=== PATIENT | female | born 1950 | race Caucasian/White ===

== ENCOUNTER 2017-02-13 02:23 | Inpatient (IN) | payer MEDICARE ==
[2017-02-13] VITALS: BP 147/41
[~2017-02-13] VITALS: Ht 165.1 cm; Wt 109.6 kg
--- NOTE | ~2017-02-13 | HEMODYNAMI ---
PATIENT:ERNIE VILLALBA MEDICAL RECORD: [id number] : 50 LOCATION:[place] [address] ADMISSION DATE: 02/13/17 Generatedon:02/13/201715:27 Patient name: ERNIE VILLALBA Patient #: [id number] SSN: : 1950 Date of study: 02/13/2017 Page: Of Hemodynamic Procedure Report Patient Data Patient Demographics Procedure consent was obtained First Name: ERNIE Gender: Female Last Name: ORLY : 1950 Patient #: [id number] Age: 66 year(s) Race: Unknown Additional ID: [id number] Contact details Address: [address] State: [place] City: [place] Zip code: [address] Past Medical History Allergies: No allergy information Admission Admission Data Admission Date: 02/13/2017 Admission Time: 6:27 Room #: [facility] Procedure Procedure Types Cath Procedure Diagnostic Procedure LHC LHC w/Coronaries w/Grafts PCI Procedure Coronary Stent Initial Miscellaneous Procedures Moderate Sedation up to 30 minutes Procedure Description Procedure Date Procedure Date: 02/13/2017 Procedure Start Time: 15:01 Procedure End Time: 15:26 Procedure Staff Name Function Moisés Galvan MD Performing Physician Long Kerr RT Scrub Vel Boogie RN Nurse Latha Mcclellan RN Nurse Alysa Servin RT Monitor Leandro Hendrickson RT Monitor Procedure Data Cath Procedure Fluoroscopy Diagnostic fluoroscopy Total fluoroscopy Time: time: 10.8 min 10.8 min Diagnostic fluoroscopy Total fluoroscopy dose: dose: 1006 mGy 1006 mGy Contrast Material Contrast Material Type Amount (ml) Isovue 300 152 Entry Location Entry Primary Successful Side Size Upsize Upsize Entry Closure Succes sful Closure Location (Fr) 1 (Fr) 2 (Fr) Remarks Device Remarks Femoral Right 5 Fr 6 Fr Exoseal artery Short Diagnostic catheters Device Type Used For End Catheter Placement Cordis 5Fr Pigtail LV Angiography Catheter (MP) Cordis 5Fr JL 4.0 Left Coronary Catheter (MP) Angiography Cordis 5Fr 3DRC Catheter SVG Angiography (MP) Diagnostic Infinity 5Fr SVG Angiography AR MOD Catheter Procedure Complications No complications Procedure Medications Medication Administration Route Dosage Oxygen NC 2 l/min Heparin Flush Bag added to field 2 bags (1000units/500ml NS) 0.9% NaCl I.V. 100 ml/hr Plavix P.O. 75 mg Fentanyl I.V. 50 mcg Versed I.V. 1 mg Fentanyl I.V. 50 mcg Versed I.V. 1 mg Heparin Bolus I.V. 4000 units Fentanyl I.V. 50 mcg Hemodynamics Rest Heart Rate: 62 (bpm) Snapshots Pre Cath Intra NCS Post Cath Vital Signs Time Heart Resp SPO2 etCO2 OB1gdsq NIBP (mmHg) Rhythm Pain Sedation Rate (ipm) (%) (mmHg) (mmHg) Status Level (bpm) 14:48:37 61 17 100 0 0 168/75(132) NSR 0 (11) 10(A) , No pain 14:53:07 61 20 100 0 0 145/70(111) NSR 0 (11) 10(A) , No pain 14:57:33 66 18 98 0 0 136/60(100) NSR 0 (11) 10(A) , No pain 15:03:07 74 18 98 0 0 140/63(96) NSR 0 (11) 9(A) , No pain 15:07:29 75 18 99 0 0 135/64(100) NSR 0 (11) 9(A) , No pain 15:11:49 73 19 98 0 0 126/65(99) NSR 0 (11) 9(A) , No pain 15:16:15 74 19 98 0 0 123/61(83) NSR 0 (11) 9(A) , No pain 15:20:28 78 22 99 0 0 118/72(96) NSR 0 (11) 9(A) , No pain 15:22:47 76 18 98 0 0 118/71(94) NSR 0 (11) 9(A) , No pain Medications Time Medication Route Dose Verified Delivered Reason Notes Effectiveness by by 14:51:50 Oxygen NC 2 Vel Crowder Per physician l/min Keagan Boogie RN RN 14:51:57 Heparin Flush added 2 Vel Crowder Per physician Bag to bags Keagan Boogie RN (1000units/500ml field RN NS) 14:52:15 0.9% NaCl I.V. 100 Vel Vel Per physician ml/hr Keagan Boogie RN RN 14:53:40 Plavix P.O. 75 mg Vel Vel for Keagan Boogie RN antiplatelet RN therapy 14:56:15 Fentanyl I.V. 50 Vel Vel for sedation mcg Keagan Boogie RN RN 14:56:23 Versed I.V. 1 mg Vel Vel for sedation Keagan Boogie RN RN 15:00:31 Fentanyl I.V. 50 Vel Vel for sedation mcg Keagan Boogie RN RN 15:00:36 Versed I.V. 1 mg Vel Vel for sedation Keagan Boogie RN RN 15:12:29 Heparin Bolus I.V. 4000 Vel Vel for units Keagan Boogie RN anticoagulation RN 15:13:23 Fentanyl I.V. 50 Vel Vel for sedation mcg Keagan Boogie RN application security specialist Log Time Note 14:11:41 Long Kerr RT(R) sent for patient. Start room use. 14:25:57 Diagnostic Cath Status : Elective 14:26:42 Time tracking: Regular hours 14:26:47 Plan of Care:Hemodynamics will remain stable., Cardiac rhythm will remain stable., Comfort level will be maintained., Respiratory function will remain adequate., Patient/ family verbilizes understanding of procedure., Procedure tolerated without complication., Recovers from procedure without complications.. 14:26:59 Patient received from Med II to [facility] 1 Alert and oriented. Tansferred to table in Supine position. 14:38:08 Warm blankets applied, and aminata hugger turned on for patient comfort. 14:38:09 Correct patient and procedure confirmed by team. 14:38:11 Signed procedure consent form obtained from patient. 14:38:20 H&P Date Dictated: 02/12/2017 Within 30 days and on chart.. 14:38:26 Snore? Yes 14:38:28 Sleep apnea? Yes 14:38:50 Patient diabetic? Yes. 14:38:53 If diabetic: On Metformin? Yes 14:38:56 If on Metformin: Last Dose? 02/11/2017 14:39:05 Patient pain scale 0/10 ?. 14:39:21 IV patent on arrival in left hand with 0.9% NaCl at [facility]. 14:39:28 Lab results completed and on chart. 14:39:33 Right groin area was prepped with chlora-prep and draped in sterile fashion 14:39:34 Alarms reviewed by RCallum N. 14:39:35 Sharps counted by scrub and verified by KylahN. 14:40:21 Family in patients room. 14:40:24 Patient NPO since Midnight. 14:40:39 Patient allergic to No allergy information 14:41:08 Is the patient allergic to Iodine/contrast media? No. 14:41:12 Is patient on blood thinner?Yes 14:41:16 ACC The patient was administered the following blood thiners within the last 24 hours: ACCPlavix 14:42:08 Deviated septum? No 14:42:10 Opens mouth fully? Yes 14:42:11 Sticks out tongue? Yes 14:42:13 Sticks out tongue? No 14:42:15 Airway obstruction? No ? 14:42:17 Dentures? No ? 14:42:28 ACC The patient was administered the following blood thiners within the last 24 hours: ACCPlavix 14:42:35 Previous problem with sedation/anesthesia? No ? 14:42:53 Pre procedure: right dorsailis pedis pulse Doppler 14:43:02 ECG and BP/O2 sat monitors applied to patient. 14:43:06 Full Disclosure recording started 14:43:06 - 14:43:25 Tegaderm 4 x 4 opened to sterile field. 14:43:27 MBrace Wrist Support opened to sterile field. 14:43:27 Acist Manifold opened to sterile field. 14:43:28 Acist Hand Control opened to sterile field. 14:43:29 St Matias 260cm J .035 wire opened to sterile field. 14:43:30 Terumo 6Fr Slender Glidesheath opened to sterile field. 14:43:30 Bag Decanter opened to sterile field. 14:43:31 Medline Cath Pack opened to sterile field. 14:43:32 Acist Syringe opened to sterile field. 14:47:04 Vital chart was started 14:47:05 Baseline sample Acquired. 14:47:10 Rhythm: sinus rhythm 14:51:50 Oxygen 2 l/min NC was administered by Vel Boogie RN; Per physician; 14:51:57 Heparin Flush Bag (1000units/500ml NS) 2 bags added to field was administered by Vel Boogie RN; Per physician; 14:52:15 0.9% NaCl 100 ml/hr I.V. was administered by Vel Boogie RN; Per physician; 14:53:40 Plavix 75 mg P.O. was administered by Vel Boogie RN; for antiplatele t therapy; 14:53:43 Baseline sample Acquired. 14:54:26 --------ALL STOP TIME OUT------ 14:54:26 Final Timeout: patient, procedure, and site verified with staff and physician. All members of the team are in agreement. 14:54:28 Right groin site verified by team. 14:54:31 Physical assessment completed. ASA score P 2 - A patient with mild systemic disease as per Moisés Galvan MD. 14:54:34 Sedation plan: IV Moderate Sedation Versed, Fentanyl 14:54:53 ACC Patient presents with Unstable Angina CCS Anginal Class 3--Marked limitation of physical activity, angina occurs with ordinary activity.. 14:56:15 Fentanyl 50 mcg I.V. was administered by Vel Boogie RN; for sedation ; 14:56:23 Versed 1 mg I.V. was administered by Vel Boogie RN; for sedation; 14:58:13 Procedure started. 15:00:22 Use device set Femoral Dx 15:00:23 Acist Syringe opened to sterile field. 15:00:23 Bag Decanter opened to sterile field. 15:00:23 Medline Cath Pack opened to sterile field. 15:00:24 Terumo 5Fr [place] Sheath opened to sterile field. 15:00:25 St Matias 260cm J .035 wire opened to sterile field. 15:00:26 Acist Hand Control opened to sterile field. 15:00: Acist Manifold opened to sterile field. 15:00:26 Diagnostic Infinity 5Fr Multipack catheter opened to sterile field. 15:00:27 Tegaderm 4 x 4 opened to sterile field. 15:00:31 Fentanyl 50 mcg I.V. was administered by Vel Boogie RN; for sedation ; 15:00:36 Versed 1 mg I.V. was administered by Vel Boogie RN; for sedation; 15:01:01 Local anesthetic to right femoral artery with Lidocaine 2% by Moisés Galvan MD.INITIAL ACCESS ONLY 15:01:09 A 5 Fr sheath was inserted into the Right Femoral artery 15:01:22 A Cordis 5Fr Pigtail Catheter (MP) was advanced over the wire and used for LV Angiography. 15:01:28 EF : 60 % 15:01:29 Catheter removed. 15:01:34 A Cordis 5Fr JL 4.0 Catheter (MP) was advanced over the wire and used for Left Coronary Angiography. 15:01:37 LCA angiography performed. 15:02:20 Catheter removed. 15:02:49 A Cordis 5Fr 3DRC Catheter (MP) was advanced over the wire and used for SVG Angiography. 15:02:58 CURRY to LAD angiography performed. 15:04:32 RCA angiography performed. 15:04:34 Catheter removed. 15:04:42 Sheath upsized to a 6 Fr Short. 15:05:38 A Diagnostic Infinity 5Fr AR MOD Catheter was advanced over the wire an d used for SVG Angiography. 15:06:52 SVG to RCA angiography performed. 15:06:54 SVG to Circ occluded. 15:06:56 Catheter removed. 15:07:18 Terumo 6Fr [place] Sheath opened to sterile field. 15:07:18 Building Robotics BasixCompak Inflation Kit opened to sterile field. 15:07:18 Cordis 6FR XBLAD 4.0 guide catheter opened to sterile field. 15:07:19 Schulz Whisper J 300cm 0.014 guide wire opened to sterile field. 15:07:39 ACC PCI Site: [facility] has 80% stenosis. 15:07:42 ACC Pre-intervention HODAN Flow is 3. 15:07:50 6 Fr XBLAD 3.5 guide catheter was inserted over the wire 15:08:10 WHISPER wire advanced. 15:12:05 Wire removed. 15:12:29 Heparin Bolus 4000 units I.V. was administered by Vel Boogie RN; for anticoagulation; 15:13:23 Fentanyl 50 mcg I.V. was administered by Vel Boogie RN; for sedation ; 15:14:09 CPTES wire advanced. 15:14:10 Inflation Number: 1 A Erasmo OTW 2.5 x 22 stent was prepped and advanced across the Mid CX. The stent was deployed at 13 SOLEDAD for 0:09 (min:sec). 15:14:57 [place] Who is Undercover Spy Choice PT Extra Support J 300cm .014 gu opened to sterile field. 15:15:36 Stent catheter was removed intact over wire. 15:16:29 Inflation number: 2 A Euphora 2.5 x 15 Balloon was prepped and advanced across the Mid CX, then inflated to 11 SOLEDAD for 0:09 (min:sec). 15:16:58 Inflation number: 3 The Euphora 2.5 x 15 Balloon was reinflated across the Mid CX, to 13 SOLEDAD for 0:10 (min:sec). 15:17:20 Balloon removed over the wire. 15:19:00 Inflation Number: 4 A Erasmo OTW 2.5 x 18 stent was prepped and advanced across the Mid CX. The stent was deployed at 13 SOLEDAD for 0:09 (min:sec). 15:19:27 Stent catheter was removed intact over wire. 15:19:28 Wire removed. 15:19:29 Guide catheter removed. 15:19:43 Sheath removed intact; hemostasis achieved with Exoseal to the Right Femoral artery. 15:19:52 Cordis 6Fr Exoseal opened to sterile field. 15:19:55 Procedure ended.(Physican Out) 15:20:19 Fluoroscopy time 10.80 minutes. 15:20:23 Fluoroscopy dose: 1006 mGy 15:20:23 Flurop Dose total: 1006 15:20:27 Contrast amount:Isovue 300 152ml. 15:20:29 Sharps counted by scrub and verified by R.N. 15:20:30 Insertion/operative site no bleeding no hematoma. 15:20:33 Post-op/insertion site Right Femoral artery dressed using a 4 x 4 and Tegaderm. 15:20:38 Post right femoral artery:stable 15:20:47 Post Procedure Pulses reassessed and unchanged 15:21:14 Post procedure: right dorsailis pedis pulse 1+ Palpable, but thready & weak; easily obliterated. 15:21:18 Post procedure rhythm: sinus rhythm 15:21:19 Post procedure instruction explained to patient.Patient verbalizes understanding. 15:23:07 Procedure type changed to Cath procedure, Diagnostic procedure, LHC, LH C w/Coronaries w/Grafts, PCI procedure, Coronary Stent Initial, Miscellaneous Procedures, Moderate Sedation up to 30 minutes 15:25:39 Procedure and supply charges have been captured, reviewed, submitted an d are correct. 15:26:01 Procedure Complication : No complications 15:26:04 Vital chart was stopped 15:26:05 See physician's report for complete and final results. 15:26:08 Report given to PCU. 15:26:12 Patient transfered to PCU with Bed. 15:26:14 Procedure ended. 15:26:14 Full Disclosure recording stopped 15:26:16 End room use (Document Last) Intervention Summary Intervention Notes Time ActionType Lesion and Equipment Action# Pressure Duration Attributes Used 15:14:10 Place stent Mid CX Erasmo OTW 1 13 00:09 2.5 x 22 stent 15:16:29 Inflate Mid CX Euphora 2 11 00:09 balloon 2.5 x 15 Balloon 15:16:58 Reinflate Mid CX Euphora 3 13 00:10 balloon 2.5 x 15 Balloon 15:19:00 Place stent Mid CX Levan OTW 4 13 00:09 2.5 x 18 stent Device Usage Item Name Manufacture Quantity Catalog Number [facility] Part Current [facility] al Lot# / Charge Number Stock Stock Serial# Code Tegaderm 4 3M 2 1626W [id number] [id number] 985821 5 x 4 MBrace Advanced 1 140-0250-00 891773 02288 153817 5 Wrist Vascular Support Dynamics Acist Acist 2 84195 058067 415936 022817 5 Manifold Medical Systems Inc Acist Hand Acist 2 17743 068281 773860 172580 5 [address] Medical [employer] [address] Matias 2 556378 626692 991872 301634 30 260cm J .035 wire Terumo 6Fr Terumo 1 [id number] 090692 781727 661470 40 Slender Glidesheath Bag Microtek 2 2001 794514 25808 461463 5 Decanter Medical Inc. Medline Cardinal 2 [id number] 322071 17374 759985 5 Cath Pack Health Acist Acist 2 20548 926397 774672 528311 20 Syringe Medical Systems Inc Terumo 5Fr Terumo 1 [id number] 948334 070087 644882 40 [place] Sheath Diagnostic Cardinal 1 [id number] 865322 50493 035674 30 Infinity Health 5Fr Multipack catheter Cordis 5Fr Cardinal 1 085499 5 Pigtail Health Catheter (MP) Cordis 5Fr Cardinal 1 060148 5 JL 4.0 Health Catheter (MP) Cordis 5Fr Cardinal 1 150135 5 3DRC Health Catheter (MP) Diagnostic Cardinal 1 [id number] 571941 224099 313857 15 Infinity Health 5Fr AR MOD Catheter Terumo 6Fr Terumo 1 [id number] 964316 451246 171546 40 [place] Sheath Merit Merit 1 [id number] 432566 048378 620246 15 TradeTools FX Medical Inflation Kit Cordis 6FR Cardinal 1 [id number] 018586 515979 292813 3 XBLAD 4.0 Health guide catheter Schulz Schulz 1 [id number] 422824 353895 534817 5 Whisper J Vascular 300cm 0.014 guide wire Levan OTW Medtronic 1 [id number] 981988 13279 198775 5 [id number] 2.5 x 22 stent [place] Sci [place] 1 [id number] 210760 874671 383147 5 [id number] Choice PT Scientific Extra Support J 300cm .014 gu Euphora 2.5 Medtronic 1 [id number] 607147 437801 464772 5 [id number] x 15 Balloon Erasmo OTW Medtronic 1 [id number] 339671 91728 530667 5 [id number] 2.5 x 18 stent Cordis 6Fr Cardinal 1 [id number] 004373 124157 119931 10 ShareMeister Signature Audit [place] Stage Time Signature Unsigned Intra-Procedure 02/13/2017 Leandro Hendrickson 3:27:05 PM RT(R) Signatures Monitor : Alysa Servin Signature : RT Date : Time : Monitor : Leandro Suit RT Signature : Date : Time : [address] [place] [address]
--- NOTE | ~2017-02-13 | CN ---
PATIENT NAME:ERNIE VILLALBA MEDICAL RECORD: [id number] : 50 LOCATION:D.M2 D.2115 ADMIT DATE: 02/14/17 ACCOUNT: [id number] CONSULTING PHYSICIAN: BRAXTON WRIGHT MD REFERRING PHYSICIAN: CAMILA NAM MD CARDIOLOGY CONSULT PROBLEM LIST: 1. Shortness of breath. 2. Dyspnea on exertion. 3. Cardiomyopathy, chronic systolic dysfunction, nonischemic. HISTORY OF PRESENT ILLNESS: This is a gentleman who presented with congestive heart failure symptomatology in April. He underwent cardiac catheterization revealing a dilated cardiomyopathy with ejection fraction in the 20-25% range but no significant disease. He now has had increasing shortness of breath and dyspnea on exertion. His troponin is 30. His electrocardiogram is with nonspecific ST-T abnormalities. PHYSICAL EXAMINATION: HEAD, EYES, EARS, NOSE, AND THROAT: Benign. NECK: Supple. No jugular venous distention. Carotid upstroke plus two bilaterally without bruits. LUNGS: Bibasilar crackles compatible with pulmonary edema. HEART: Regular. Normal S1, normal S2. No S3, no S4. No murmurs. BONES, JOINTS, EXTREMITIES: No clubbing, cyanosis, or edema. OVERALL IMPRESSION: Cardiomyopathy, nonischemic in the past, but with a troponin of 30 cannot ignore this. Will proceed with coronary angiography. Further care depends upon the findings of the angiography. BRAXTON WRIGHT MD CC: [id number] DICTATION DATE: 02/14/172318 SPLITTING MACHINE FEEDER: CELESTINA 02/14/172318 ADM IN [place] [address] [place] [address]
--- NOTE | ~2017-02-13 | HEMODYNAMI ---
PATIENT:ERNIE VILLALBA MEDICAL RECORD: [id number] : 50 LOCATION:[facility] ADMISSION DATE: 02/13/17 Generatedon:02/14/201715:55 Patient name: ERNIE VILLALBA Patient #: [id number] SSN: : 1950 Date of study: 02/14/2017 Page: Of Hemodynamic Procedure Report Patient Data Patient Demographics Procedure consent was obtained First Name: ERNIE Gender: Female Last Name: ORLY : 1950 Patient #: [id number] Age: 66 year(s) Race: Unknown Additional ID: [id number] Contact details Address: [address] State: [place] City: [place] Zip code: [address] Past Medical History Allergies: No allergy information Admission Admission Data Admission Date: 02/13/2017 Admission Time: 6:27 Room #: [facility] Procedure Procedure Types Cath Procedure PCI Procedure SVG-BMS/LALI Initial Miscellaneous Procedures Moderate Sedation up to 15 minutes Procedure Description Procedure Date Procedure Date: 02/14/2017 Procedure Start Time: 15:38 Procedure End Time: 15:55 Procedure Staff Name Function Moisés Galvan MD Performing Physician Leandro Hendrickson RT Scrub Latha Mcclellan RN Nurse Long Kerr RT Monitor Procedure Data Cath Procedure Fluoroscopy Diagnostic fluoroscopy Total fluoroscopy Time: 2.4 time: 2.4 min min Diagnostic fluoroscopy Total fluoroscopy dose: 224 dose: 224 mGy mGy Contrast Material Contrast Material Type Amount (ml) Isovue 300 49 Entry Location Entry Primary Successful Side Size Upsize Upsize Entry Closure Succes sful Closure Location (Fr) 1 (Fr) 2 (Fr) Remarks Device Remarks Femoral Left 6 Fr Exoseal artery Short Estimated blood loss: 10 ml Procedure Complications No complications Procedure Medications Medication Administration Route Dosage Plavix P.O. 75 mg Oxygen NC 2 l/min Heparin Flush Bag added to field 2 bags (1000units/500ml NS) Lidocaine 2% added to field 20 Heparin Bolus I.V. 4000 units Versed I.V. 1 mg Fentanyl I.V. 50 mcg Versed I.V. 0.5 mg Fentanyl I.V. 25 mcg Hemodynamics Rest Heart Rate: 73 (bpm) Snapshots Pre Cath Intra NCS Post Cath Vital Signs Time Heart Resp SPO2 etCO2 [id number] NIBP (mmHg) Rhythm Pain Sedation Rate (ipm) (%) (mmHg) (mmHg) Status Level (bpm) 15:25:28 71 20 99 0 0 184/89(152) NSR 0 (11) 10(A) , No pain 15:30:13 72 14 98 0 0 185/88(146) NSR 0 (11) 10(A) , No pain 15:34:45 74 14 96 0 0 164/84(126) NSR 0 (11) 10(A) , No pain 15:39:23 73 15 97 0 0 146/77(126) NSR 0 (11) 9(A) , No pain 15:43:58 73 15 96 0 0 131/67(98) NSR 0 (11) 9(A) , No pain 15:48:22 73 16 96 0 0 111/68(94) NSR 0 (11) 9(A) , No pain 15:52:42 74 11 96 0 0 122/71(101) NSR 0 (11) 9(A) , No pain Medications Time Medication Route Dose Verified Delivered Reason Notes Effectiveness by by 15:15:10 Oxygen NC 2 Moisés Latha Per physician l/min Cole Mcclellan RN 15:15:47 Plavix P.O. 75 mg Moisés Latha for Cole Mcclellan RN antiplatelet therapy 15:24:35 Heparin Flush added 2 Moisés Curiel used for Bag to bags Cole Galvan MD procedure (1000units/500ml field NS) 15:24:45 Lidocaine 2% added 20ml Moisés Curiel used for to vial Cole Galvan MD procedure field 15:34:16 Versed I.V. 1 mg Moisés Latha for sedation Cole Mcclellan RN 15:34:26 Fentanyl I.V. 50 Moisés Latha for sedation mcg Cole Mcclellan RN 15:36:36 Fentanyl I.V. 25 Moisés Latha for sedation mcg Cole Mcclellan RN 15:36:37 Versed I.V. 0.5 Moisés Azul for sedation mg Cole Mcclellan RN 15:40:31 Heparin Bolus I.V. 4000 Moisés Azul for dose units Cole Mcclellan RN anticoagulation verified [facility] galvan Procedure Log Time Note 14:50:02 Long Kerr RT(R) sent for patient. Start room use. 14:57:54 ACC Patient presents with Stable Angina CCS Anginal Class 2--Slight limitation of ordinary activity. 14:57:56 Diagnostic Cath status Urgent 14:58:12 Time tracking: Regular hours 14:58:20 Plan of Care:Hemodynamics will remain stable., Cardiac rhythm will remain stable., Comfort level will be maintained., Respiratory function will remain adequate., Patient/ family verbilizes understanding of procedure., Procedure tolerated without complication., Recovers from procedure without complications.. 15:15:08 Patient received from PCU to CCL 1 Alert and oriented. Tansferred to table in Supine position. 15:15:10 Oxygen 2 l/min NC was administered by Latha Mcclellan RN; Per physician; 15:15:10 Warm blankets applied, and aminata hugger turned on for patient comfort. 15:15:10 Correct patient and procedure confirmed by team. 15:15:12 Signed procedure consent form obtained from patient. 15:15:13 ECG and BP/O2 sat monitors applied to patient. 15:15:47 Plavix 75 mg P.O. was administered by Latha Mcclellan RN; for antiplatelet therapy; 15:23:56 Vital chart was started 15:24:35 Heparin Flush Bag (1000units/500ml NS) 2 bags added to field was administered by Moisés Galvan MD; used for procedure; 15:24:45 Lidocaine 2% 20ml vial added to field was administered by Moisés Galvan MD; used for procedure; 15:32:44 Baseline sample Acquired. 15:32:49 Rhythm: sinus rhythm 15:32:50 Full Disclosure recording started 15:32:55 H&P Date Dictated: 02/13/2017 Within 30 days and on chart.. 15:32:56 Pre-procedure instructions explained to patient. 15:32:56 Pre-op teaching completed and patient verbalized understanding. 15:33:00 Patient NPO since Midnight. 15:33:01 Is the patient allergic to Iodine/contrast media? No. 15:33:03 Is patient on blood thinner?Yes 15:33:05 ACC The patient was administered the following blood thiners within the last 24 hours: ACCPlavix 15:33:07 Patient diabetic? Yes. 15:33:09 If diabetic: On Metformin? Unknown 15:33:19 Previous problem with sedation/anesthesia? No ? 15:33:20 Snore? Yes 15:33:22 Sleep apnea? Yes 15:33:31 Deviated septum? No 15:33:31 Opens mouth fully? Yes 15:33:33 Sticks out tongue? Yes 15:33:38 Airway obstruction? Yes COPD 15:33:52 Dentures? No ? 15:33:55 Pre procedure: left dorsailis pedis pulse 1+ Palpable, but thready & weak; easily obliterated 15:33:57 Patient pain scale 0/10 ?. 15:34:04 IV patent on arrival in left forearm with 0.9% NaCl at KVO. 15:34:06 Lab results completed and on chart. 15:34:09 Left groin area was prepped with chlora-prep and draped in sterile fashion 15:34:11 Alarms reviewed by R. N. 15:34:11 Sharps counted by scrub and verified by R.N. 15:34:12 --------ALL STOP TIME OUT------ 15:34:13 Final Timeout: patient, procedure, and site verified with staff and physician. All members of the team are in agreement. 15:34:15 Left groin site verified by team. 15:34:16 Versed 1 mg I.V. was administered by Latha Mcclellan RN; for sedation; 15:34:18 Physical assessment completed. ASA score P 2 - A patient with mild systemic disease as per Moisés Galvan MD. 15:34:23 Sedation plan: IV Moderate Sedation Versed, Fentanyl 15:34:26 Fentanyl 50 mcg I.V. was administered by Latha Mcclellan RN; for sedation; 15:36:36 Fentanyl 25 mcg I.V. was administered by Latha Mcclellan RN; for sedation; 15:36:37 Versed 0.5 mg I.V. was administered by Latha Mcclellan RN; for sedation; 15:38:14 Zero performed for pressure channel P1 15:38:27 Use device set Femoral PCI 15:38:28 Tegaderm 4 x 4 opened to sterile field. 15:38:30 Acist Manifold opened to sterile field. 15:38:31 Acist Syringe opened to sterile field. 15:38:32 Acist Hand Control opened to sterile field. 15:38:32 Bag Decanter opened to sterile field. 15:38:32 Medline Cath Pack opened to sterile field. 15:38:33 Terumo 6Fr [place] Sheath opened to sterile field. 15:38:33 St Matias 260cm J .035 wire opened to sterile field. 15:38:33 Merit BasixCompak Inflation Kit opened to sterile field. 15:38:48 Schulz Whisper J 300cm 0.014 guide wire opened to sterile field. 15:38:49 Text A Cabtronic Launcher 6Fr MB 1 guide catheter opened to sterile field. 15:38:52 Procedure started. 15:38:57 Local anesthetic to left femerol artery with Lidocaine 2% by Moisés Galvan MD.INITIAL ACCESS ONLY 15:40:00 A 6 Fr Short sheath was inserted into the Left Femoral artery 15:40:20 ACC PCI Site: Fran has 80% stenosis. 15:40:22 ACC Pre-intervention HODAN Flow is 3. 15:40:26 6 Fr MB 1 guide catheter was inserted over the wire 15:40:31 Heparin Bolus 4000 units I.V. was administered by Latha Mcclellan RN; for anticoagulation; dose verified wtih dr galvan 15:41:53 Whisper wire advanced. 15:44:29 Wire advanced across lesion. 15:45:02 Inflation Number: 1 A Stafford OTW 2.25 x 15 stent was prepped and advanced across the Aorta Right -> Dist RCA. The stent was deployed at 17 SOL[address] for 0:10 (min:sec). 15:45:07 ACC Post-intervention HODAN Flow is 3. 15:45:09 Stent catheter was removed intact over wire. 15:45:11 Wire removed. 15:45:11 Guide catheter removed. 15:45:21 Cordis 6Fr Exoseal opened to sterile field. 15:45:29 Sheath removed intact; hemostasis achieved with Exoseal to the Left Femoral artery. 15:46:09 Procedure ended.(Physican Out) 15:47:40 Fluoroscopy time 02.40 minutes. 15:47:50 Fluoroscopy dose: 224 mGy 15:47:50 Flurop Dose total: 224 15:47:54 Contrast amount:Isovue 300 49ml. 15:47:56 Sharps counted by scrub and verified by R.N. 15:48:09 Insertion/operative site no bleeding no hematoma. 15:48:15 Post-op/insertion site Left Femoral artery dressed using a 4 x 4 and Tegaderm. 15:53:58 Post Procedure Pulses reassessed and unchanged 15:54:01 Post-procedure physical assessment completed. ASA score P 2 - A patient with mild systemic disease as per Moisés Galvan MD. 15:54:04 Post procedure rhythm: unchanged. 15:54:06 Estimated blood loss: 10 ml 15:54:09 Post procedure instruction explained to patient.Patient verbalizes understanding. 15:54:09 Patient needs reinforcement of post procedure teaching. 15:54:24 Procedure type changed to Cath procedure, PCI procedure, SVG-BMS/LALI Initial, Miscellaneous Procedures, Moderate Sedation up to 15 minutes 15:54:43 Procedure and supply charges have been captured, reviewed, submitted and are correct. 15:54:48 Procedure Complication : No complications 15:54:52 Vital chart was stopped 15:54:52 See physician's report for complete and final results. 15:54:54 Report given to PCU. 15:54:57 Patient transfered to PCU with Bed. 15:55:00 Procedure ended. 15:55:00 Full Disclosure recording stopped 15:55:05 End room use (Document Last) Intervention Summary Intervention Notes Time ActionType Lesion and Equipment Action# Pressure Duration Attributes Used 15:45:02 Place stent Aorta Right Stafford OTW 1 17 00:10 -> Dist RCA 2.25 x 15 stent Device Usage Item Name Manufacture Quantity Catalog Hospital Part Current Minimal Lot# / Number Charge Number Stock Stock Serial# Code Tegaderm 4 3M 1 [id number] 465668 5 x 4 Acist Acist 1 14226 951783 380798 516851 5 Manifold Medical Systems Inc Acist Acist 1 47225 952240 004313 837491 20 Syringe Medical Systems Inc Acist Hand Acist 1 57308 014244 572266 118466 5 Cardiovascular Simulation Medical Systems Inc Bag Microtek 1 2002S 207783 01707 119050 5 Decanter Medical Inc. Medline Cardinal 1 [id number] 751208 87591 088780 5 Cath Pack Health Terumo 6Fr Terumo 1 [id number] 679641 445308 186628 [address] Matias 1 907670 282386 296625 844120 30 260cm J .035 wire Merit Merit 1 [id number] 049464 888756 187810 15 BasixCompak Medical Inflation Kit Schulz Schulz 1 [id number] 352011 418589 089377 5 Whisper J Vascular 300cm 0.014 guide wire Medtronic Medtronic 1 [id number] 317699 52766 963962 1 Launcher 6Fr MB 1 guide catheter Stafford OTW Medtronic 1 [id number] 874450 60076 275113 5 [id number] 2.25 x 15 stent Cordis 6Fr Cardinal 1 EX600 399229 463348 878800 10 [facility] Ubiq Mobile Signature Audit [place] Stage Time Signature Unsigned Intra-Procedure 02/14/2017 Long Kerr 3:55:16 PM RT(R) Signatures Monitor : Long Kerr RT Signature : Date : Time : [id number] [place] [address]
[2017-02-13 02:55] LABS: BASOPHILS 0.6 % (0-2); EOSINOPHILS 2.2 % (0-7); HEMATOCRIT 41.2 % (36.0-48.0); HEMOGLOBIN 14.2 g/dL (12-16); IMMATURE GRANULOCYTES 0.3 % (0-5); LYMPHOCYTES 37.2 % (15-50); MCH 31.8 pg (26.0-34.0); MCHC 34.5 g/dL (31.0-37.0); MCV 92.4 fL (80.0-100.0); MONOCYTES 8.5 % (2-11); NEUTROPHILS 51.2 % (40-80); RBC 4.46 10x6/uL (4.00-5.40); WBC 10.7 10x3/uL (4.8-10.8)
[2017-02-13 02:56] LABS: PLATELET COUNT 299 10x3/uL (130-400)
[2017-02-13 03:28] LABS: ALBUMIN 2.8 g/dL (3.4-5.0); ANION GAP 12.4 mmol/L (8-16); BILIRUBIN - TOTAL 0.39 mg/dL (0.2-1.3); CALCIUM 8.3 mg/dL (8.5-10.1); CARBON DIOXIDE 24.5 mmol/L (21.0-32.0); CHOL - HDL RATIO 5.3 ratio (2.3-4.1); CKMB 0.7 U/L (0.0-3.6); LDL-HDL RATIO 3.6 ratio (1.5-3.5); POTASSIUM - SERUM 3.9 mmol/L (3.5-5.1); PROTEIN - SERUM 6.9 g/dL (6.4-8.2)
[2017-02-13 03:30] LABS: TROPONIN-I 0.087 ng/mL (0.000-0.060)
--- NOTE | 2017-02-13 07:22 | NUR ---
TRANSFER FROM ER BY STRETCHER. OREINTED TO ROOM. CALL LIGHT IN REACH. WILL CONT. PLAN OF CARE.
[2017-02-13 07:24] VITALS: BP 115/71; BMI 41.3
[2017-02-13] MEDS ORDERED: LYRICA200 MG PO (07:28)
[2017-02-13] MEDS ORDERED: LISINOPRIL10 MG PO (07:28)
[2017-02-13] MEDS ORDERED: GLUCOPHAGE500 MG PO (07:29)
[2017-02-13] MEDS ORDERED: METOPROLOL TART50 MG PO (07:30)
[2017-02-13] MEDS ORDERED: NITROSTAT0.4 MG SL (07:30)
[2017-02-13] MEDS ORDERED: PROAIR HFA8.5 GM INH ×2 (07:32→07:33)
[2017-02-13] MEDS ORDERED: PLAVIX75 MG PO (07:33)
[2017-02-13] MEDS ORDERED: VOLTAREN75 MG PO (07:34)
[2017-02-13] MEDS ORDERED: PROZAC20 MG PO (07:34)
[2017-02-13] MEDS ORDERED: FUROSEMIDE20 MG PO (07:34)
[2017-02-13] MEDS ORDERED: LANTUS INSULIN10 ML SC (07:35)
[2017-02-13] MEDS ORDERED: HUMALOG 30100 UNITS/ SC (07:37)
[2017-02-13] MEDS ORDERED: ISOSORBIDE MONO60 M1 PO (07:38)
[2017-02-13 08:00] VITALS: BP 123/41
[2017-02-13 09:05] LABS: BASOPHILS 0.6 % (0-2); EOSINOPHILS 2.4 % (0-7); HEMATOCRIT 41.3 % (36.0-48.0); HEMOGLOBIN 14.1 g/dL (12-16); IMMATURE GRANULOCYTES 0.3 % (0-5); LYMPHOCYTES 40.9 % (15-50); MCH 31.6 pg (26.0-34.0); MCHC 34.1 g/dL (31.0-37.0); MCV 92.6 fL (80.0-100.0); MEAN PLATELET VOLUME 11.1 fL (7.4-10.4); MONOCYTES 8.2 % (2-11); NEUTROPHILS 47.6 % (40-80); PLATELET COUNT 330 10x3/uL (130-400); RBC 4.46 10x6/uL (4.00-5.40); RDW 12.3 % (11.5-14.5); WBC 11.8 10x3/uL (4.8-10.8)
[2017-02-13 09:28] LABS: ANION GAP 11.6 mmol/L (8-16); CALCIUM 8.7 mg/dL (8.5-10.1); CARBON DIOXIDE 25.3 mmol/L (21.0-32.0); CREATININE - SERUM 0.9 mg/dL (0.6-1.3); POTASSIUM - SERUM 3.9 mmol/L (3.5-5.1)
[2017-02-13 11:21] VITALS: Ht 165.1 cm; Wt 109.6 kg
[2017-02-13 12:00] VITALS: BP 126/49
--- NOTE | 2017-02-13 13:45 | NUR ---
CONSENTS SIGNED FOR [facility]. PRE-OPS GIVEN. WILL CONT. PLAN OF CARE.
--- NOTE | 2017-02-13 13:50 | NUR ---
CONSENTS SIGNED. PRE-OPS GIVEN. 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
--- NOTE | 2017-02-13 14:40 | NUR ---
LEAVING FOR DIRECTOR MEDICAID BY BED.
--- NOTE | 2017-02-13 15:46 | NUR ---
BACK FROM INSTRUMENT PERSON. VS WNL. RIGHT GROIN STABLE WITHOUT BLEEDING OR HEMATOMA NOTED. WILL MONITOR.
--- NOTE | 2017-02-13 19:00 | NUR ---
REPORT RECIEVED, RESTING, WOKE EASILY, DENIES PAIN/NEEDS ATT. BED LOW AND LOCKED, CALL LIGHT IN REACH. WILL CPOC.
--- NOTE | 2017-02-13 19:00 | NUR ---
REPORT RECIVED, INITIAL ASSESSMENT COMPLETE, PLEASE SEE FLOW SHEETS FOR DETAILS. FAMILY AT BEDSIDE, PT COMPLAINS OF PAIN IN ABD, THOUGH CANNOT TELL ME WHAT KIND OF PAIN NOR THE SCALE, SHE IS CONFUSED TO TIME. LETHARGIC ATT, THOUGH WILL ANSWER QUESTIONS APPROPRIATELY. SINUS RHYTHM NOTED ON MONITOR. +2 PITTING EDEMA NOTED ON LOWER EXTREMETIES. BED LOW AND LOCKED, CALL LIGHT IN REACH. WILL CPOC.
--- NOTE | 2017-02-13 19:56 | NUR ---
INITIAL ASSESSMENT COMPLETE, PLEASE SEE FLOW SHEETS FOR DETAILS. PIV SALINE LOCKED. INFORMED PATIENT SHE COULD NOT GET UP. A&O X4, FAMILY AT BEDSIDE. BED LOW AND LOCKED, CALL LIGHT IN REACH. WILL CPOC.
--- NOTE | 2017-02-14 01:29 | NUR ---
SLEEPING, RR EVEN AND UNLABORED. NO S&S OF ACUTE DISTRESS NOTED. BED LOW AND LOCKED, CALL LIGHT IN REACH. WILL CPOC.
[2017-02-14 04:51] VITALS: BP 129/41
--- NOTE | 2017-02-14 06:28 | NUR ---
PT CALLED C/O SPONTANEOUS CHEST PAIN WITH NAUSEA/VOMITING. PRN MORPHINE AND ZOFRAN GIVEN. PT TO CALL WITH ANY OTHER NEEDS.
[2017-02-14 09:07] VITALS: BP 158/61
--- NOTE | 2017-02-14 09:58 | NUR ---
TELEMTERY SR. NPO FOR [facility]. WILL CONT. PLAN OF CARE.
[2017-02-14 12:08] VITALS: BP 124/64
--- NOTE | 2017-02-14 15:09 | NUR ---
PRE-OPS JIVEN. TO ESCALATOR ATTENDANT BY BED.
--- NOTE | 2017-02-14 16:19 | NUR ---
BACK FROM FACILITY SALES AND ADMIN. VS WNL. RIGHT GROIN STABLE WITHOUT BLEEDING OR HEMATOMA NOTED. WILL MONITOR.
--- NOTE | 2017-02-14 20:16 | NUR ---
RESUMED CARE OF PT, LYING IN BED RESPIRATIONS EVEN AND UNLABORED ON ROOM AIR. 71 SR ON TELEMETRY. LEFT HAND INFUSING NS @ 100. LEFT GROIN C/D/I, PEDAL PULSE PALPABLE. MORPHINE AND ZOFRAN GIVEN FOR CHEST PAIN. CALL LIGHT IN REACH. SEE NURSE ASSESSMENT. WILL CONTINUE TO MONITOR.
[2017-02-14 23:32] VITALS: BP 137/62
--- NOTE | 2017-02-15 01:34 | NUR ---
CALL LIGHT IN REACH, WILL CONTINUE WITH PLAN OF CARE.
--- NOTE | 2017-02-15 04:35 | NUR ---
ASSISSTED TO RESTROOM FOR TOILETING. VERY WEAK TO LEFT SIDE, THE LONGER OUT OF BED THE WEAKER SHE GOT. ABLE TO TAKE HER TO RESTROOM A 1 PERSON ASSIST, ON THE WAY BACK TO BED, SHE BECAME A 2 PERSON MAX ASSIST. PULLED UP IN BED AND REPOSITIONED FOR COMFORT. WILL CONTINUE TO MONITOR. CALL LIGHT IN REACH.
[2017-02-15 06:24] VITALS: BP 150/60
--- NOTE | 2017-02-15 07:45 | NUR ---
PT TO CT VIA BED AAOX4 RESP UNLABORED NAD NOTED AT THIS TIME
[2017-02-15 08:00] VITALS: BP 142/66
--- NOTE | 2017-02-15 09:20 | NUR ---
RECEIVED PT BACK TO ROOM VIA BED IN STABLE CONDITION NAD NOTED
[2017-02-15 12:00] VITALS: BP 154/56
--- NOTE | 2017-02-15 13:11 | NUR ---
Nutrition follow-up: Pt just back from procedure; has been NPO today PO intake of ADA diet has been ~70% average of last 3 meals Labs reviewed FSBS all > 200 mg/dl Wt: 255# +BM RDN following.
[2017-02-15 16:00] VITALS: BP 133/71
--- NOTE | 2017-02-15 17:44 | NUR ---
FSBS 313 REG INSULIN 12 UNITS GIVEN SQ RT ARM
--- NOTE | 2017-02-15 19:16 | NUR ---
Patient Name: ERNIE VILLALBA Admission Status: ER Accout number: [id number] Admission Date: 02-14-2017 : 1950 Admission Diagnosis: Attending: LEYLA Current LOS: 1 Anticipated DC Date: Planned Disposition: Inpatient Rehab Primary Insurance: MEDICARE A & B PLANNED EXTERNAL PROVIDER: [facility] INPATIENT REHAB Discharge Planning Comments: * Is the patient Alert and Oriented? Yes 0 * How many steps to enter\\exit or inside your home? ELEVATOR 0 * PCP MARIA ESTHER PORTILLO NP AT DR. GOLDSMITH'S OFFICE 0 * Pharmacy [facility] 0 * Preadmission Environment Home Alone 0 * ADLs Independent 0 * Equipment Glucometer 0 * Other Equipment NO MEDICAL EQUIPMENT PROVIDER PREFERENCE 0 * List name and contact numbers for known caregivers / representatives who currently or will assist patient after discharge: CALIXTO VILLALBA, DTR, 0 * Community resources currently utilized None 0 * Please name any agencies selected above. NONE 0 * Additional services required to return to the preadmission environment? Yes * Can the patient safely return to the preadmission environment? Yes 0 * Has this patient been hospitalized within the prior 30 days at any hospital? No 0 CM RECEIVED ORDER FOR INPATIENT REHAB PRESCREENING; MET WITH PT AND DAUGHTER, TUSHAR, IN ROOM TO DISCUSS DISCHARGE PLANNING AND NEEDS. PT REPORTS LIVING AT HOME INDEPENDENTLY AND ALONE AT [facility] WITH ELEVATOR ACCESS TO HER APARTMENT. PT HAS GLUCOMETER WITH NO MEDICAL EQUIPMENT PROVIDER PREFERNCE. PT HAS NO OUTSIDE SERVICES ASSISTING IN THE HOME. CM DISCUSSED AVAILABILITY OF HOME HEALTH, REHAB SERVICES AND MEDICAL EQUIPMENT. PT WANTS TO BE CONSIDERED FOR "IN HOUSE REHAB HERE", REPORTS HER DAUGHTER WILL PICK HER UP FOR DISCHARGE HOME. CM WAITING RESULTS OF INPATIENT REHAB PRESCREENING BY [facility] INPATIENT RE[facility]. Secondary Spanish Teacher: Abiodun Burns
[2017-02-15 20:00] VITALS: BP 138/56
--- NOTE | 2017-02-15 20:05 | NUR ---
RESUMED CARE OF PT, LYING IN BED RESPIRATIONS EVEN AND UNLABORED ON 2LPM VIA NC. 81 SR ON TELEMETRY. LEFT HAND SALINE LOCKED. INCONTINENT EPISODE CLEANED UP AND NYSTATIN APPLIED TO PERIAREA. NO FURTHER NEEDS AT THIS TIME. CALL LIGHT IN REACH. WILL CONTINUE TO MONITOR. SEE NURSE ASSESSMENT.
[2017-02-16 04:00] VITALS: BP 116/56
--- NOTE | 2017-02-16 04:52 | NUR ---
LAP HAND TOOL AT BEDSIDE TO OBTAIN VITALS, CALL LIGHT IN REACH. WILL CONTINUE WITH PLAN OF CARE.
[2017-02-16 04:56] LABS: BASOPHILS 0.2 % (0-2); EOSINOPHILS 0.2 % (0-7); HEMATOCRIT 39.7 % (36.0-48.0); HEMOGLOBIN 13.4 g/dL (12-16); IMMATURE GRANULOCYTES 0.2 % (0-5); LYMPHOCYTES 17.5 % (15-50); MCH 32.1 pg (26.0-34.0); MCHC 33.8 g/dL (31.0-37.0); MCV 95.2 fL (80.0-100.0); MEAN PLATELET VOLUME 11.5 fL (7.4-10.4); MONOCYTES 14.8 % (2-11); NEUTROPHILS 67.1 % (40-80); RBC 4.17 10x6/uL (4.00-5.40); RDW 12.2 % (11.5-14.5); WBC 17.4 10x3/uL (4.8-10.8)
[2017-02-16 04:58] LABS: PLATELET COUNT 254 10x3/uL (130-400)
[2017-02-16 05:10] LABS: ALBUMIN 2.4 g/dL (3.4-5.0); ALKALINE PHOSPHATASE 144 U/L (46-116); ALT (SGPT) 55 U/L (10-68); BILIRUBIN - TOTAL 1.56 mg/dL (0.2-1.3); CALC OSMOLALITY 278 mosm/kg (275-300); CALCIUM 8.3 mg/dL (8.5-10.1); CARBON DIOXIDE 27.5 mmol/L (21.0-32.0); CHLORIDE - SERUM 100 mmol/L (98-107); CREATININE - SERUM 0.8 mg/dL (0.6-1.3); POTASSIUM - SERUM 3.9 mmol/L (3.5-5.1); PROTEIN - SERUM 6.2 g/dL (6.4-8.2); SODIUM 134 mmol/L (136-145); UREA NITROGEN 16 mg/dL (7-18); eGFR NON AFRICAN AMERICAN 76 mL/min (90-120)
[2017-02-16 05:12] LABS: GLUCOSE 284 mg/dL (74-106)
--- NOTE | 2017-02-16 06:12 | NUR ---
NO CHANGES FROM PREVIOUS ASSESSMENT, CALL LIGHT IN REACH. WILL CONTINUE TO MONITOR.
--- NOTE | 2017-02-16 06:45 | NUR ---
IV INFILTRATED, 22 GAUGE X 2 STICKS.
--- NOTE | 2017-02-16 07:15 | NUR ---
RECEIVED PT TO ROOM 2117 VIA W/C FROM ER AAOX4 RESP UNLABORED SKIN W/D COLOR WNL LAC SALINE LOC INTACT SITE WITHOUT RENESS OR EDEMA DRSG C/D/I TELETRY SR RATE 66
--- NOTE | 2017-02-16 07:46 | NUR ---
FSBS 286 REGULAR INSULIN 10 UNITS SQ LT ARM
[2017-02-16 08:07] VITALS: BP 137/53
[2017-02-16 12:06] VITALS: BP 131/50
--- NOTE | 2017-02-16 14:05 | NUR ---
Rehab Note- Acute Rehab prescreen order received. Reviewed chart and visited patient. The patient has had elevated temp & increasing WBC, will await Dr. Keita note. Spoke with TERE Wilkerson about increased WBC & temp. Will continue to follow at this time. Thank ou for this referral! Eileen Farias RN Clinical Liaison, [facility] Rehab
[2017-02-16 14:44] VITALS: BP 142/54
--- NOTE | 2017-02-16 15:01 | NUR ---
OT NOTE: PT COMPLETED SIMPLE GROOMING TASK WITH SET UP. PT COMPLETED BED MOB WITH SIDE RAILS WITH SBA. PT COMPLETED BUE STRENGTHENING EXS FOR INCREASED I WITH FUNCTIONAL AXS. THANK YOU, AROLDO CHÁVEZ/Daria
[2017-02-16 20:00] VITALS: BP 123/53
[2017-02-17] VITALS: BP 121/55
[2017-02-17 04:00] VITALS: BP 129/39
[2017-02-17 05:27] LABS: BASOPHILS 0.3 % (0-2); EOSINOPHILS 0.6 % (0-7); HEMATOCRIT 40.1 % (36.0-48.0); HEMOGLOBIN 13.4 g/dL (12-16); IMMATURE GRANULOCYTES 0.5 % (0-5); LYMPHOCYTES 19.2 % (15-50); MCH 31.5 pg (26.0-34.0); MCHC 33.4 g/dL (31.0-37.0); MCV 94.4 fL (80.0-100.0); MEAN PLATELET VOLUME 11.8 fL (7.4-10.4); MONOCYTES 12.4 % (2-11); PLATELET COUNT 249 10x3/uL (130-400); RBC 4.25 10x6/uL (4.00-5.40); RDW 12.4 % (11.5-14.5); WBC 16.8 10x3/uL (4.8-10.8)
[2017-02-17 05:45] LABS: ALBUMIN 2.5 g/dL (3.4-5.0); ANION GAP 11.4 mmol/L (8-16); BILIRUBIN - TOTAL 0.9 mg/dL (0.2-1.3); CALCIUM 8.7 mg/dL (8.5-10.1); CREATININE - SERUM 0.9 mg/dL (0.6-1.3); POTASSIUM - SERUM 4.4 mmol/L (3.5-5.1); PROTEIN - SERUM 6.2 g/dL (6.4-8.2)
[2017-02-17 08:10] VITALS: BP 145/70
--- NOTE | 2017-02-17 09:33 | NUR ---
TELEMETRY SR. RESP UL ON . CALL LIGHT IN REACH. WILL CONT. PLAN OF CARE.
--- NOTE | 2017-02-17 10:27 | NUR ---
OOB TO CHAIR WITH PT ASSIST.
[2017-02-17 11:27] VITALS: BP 141/63
[2017-02-17 15:16] VITALS: BP 130/53
[2017-02-17 15:47] LABS: APPEARANCE CLEAR (CLEAR); BILIRUBIN 2+ (NEGATIVE); COLOR ORANGE (YELLOW); GLUCOSE NEGATIVE (NEGATIVE); KETONE NEGATIVE (NEGATIVE); LEUKOCYTE ESTERASE TRACE (NEGATIVE); NITRITE NEGATIVE (NEGATIVE); PROTEIN NEGATIVE (NEGATIVE); SPECIFIC GRAVITY 1.015 (1.005-1.020); UROBILINOGEN NORMAL (NORMAL)
[2017-02-17 15:49] LABS: EPITHELIAL CELLS 0-5 /hpf (0-5); RED CELLS - URINE 0-5 /hpf (0-5); WHITE CELLS - URINE 0-5 /hpf (0-5)
[2017-02-17 15:50] LABS: BACTERIA FEW /hpf (NONE SEEN)
--- NOTE | 2017-02-17 15:58 | NUR ---
URINE SPECIMEN COLLECTED AND TAKEN TO LAB FO UA.
[2017-02-17 20:00] VITALS: BP 157/97
--- NOTE | 2017-02-17 22:08 | NUR ---
PT C/O RIGHT SHOULDER PAIN, STATES IT IS A SHARP PAIN AND HURTS WORSE WITH INSPIRATION. MORPHINE 4 MG IV TO BE GIVEN FOR PAIN, RATES @ 6 ON PAIN SCALE. WILL MONITOR.
[2017-02-18] VITALS: BP 125/43
--- NOTE | 2017-02-18 03:30 | NUR ---
PT RESTING WELL WITHOUT C/O OR DISTRESS NOTED. CALL LIGHT WITHIN REACH.
[2017-02-18 05:14] LABS: BASOPHILS 0.3 % (0-2); EOSINOPHILS 1.1 % (0-7); HEMATOCRIT 38.4 % (36.0-48.0); HEMOGLOBIN 12.8 g/dL (12-16); IMMATURE GRANULOCYTES 0.3 % (0-5); LYMPHOCYTES 23.3 % (15-50); MCH 31.4 pg (26.0-34.0); MCHC 33.3 g/dL (31.0-37.0); MCV 94.3 fL (80.0-100.0); MEAN PLATELET VOLUME 12.3 fL (7.4-10.4); MONOCYTES 14.6 % (2-11); NEUTROPHILS 60.4 % (40-80); PLATELET COUNT 285 10x3/uL (130-400); RBC 4.07 10x6/uL (4.00-5.40); RDW 12.2 % (11.5-14.5); WBC 14.6 10x3/uL (4.8-10.8)
[2017-02-18 05:57] LABS: ALBUMIN 2.4 g/dL (3.4-5.0); ALKALINE PHOSPHATASE 160 U/L (46-116); ALT (SGPT) 36 U/L (10-68); CALCIUM 8.7 mg/dL (8.5-10.1); CARBON DIOXIDE 31.6 mmol/L (21.0-32.0); CHLORIDE - SERUM 100 mmol/L (98-107); CREATININE - SERUM 0.7 mg/dL (0.6-1.3); GLUCOSE 197 mg/dL (74-106); POTASSIUM - SERUM 4.5 mmol/L (3.5-5.1); PROTEIN - SERUM 6.1 g/dL (6.4-8.2); SODIUM 135 mmol/L (136-145); eGFR NON AFRICAN AMERICAN 89 mL/min (90-120)
[2017-02-18 06:03] LABS: CALC OSMOLALITY 276 mosm/kg (275-300); UREA NITROGEN 17 mg/dL (7-18)
[2017-02-18 07:47] VITALS: BP 156/70
--- NOTE | 2017-02-18 10:27 | NUR ---
UP TO CHAIR WITH PT ASSIST.
[2017-02-18 11:41] VITALS: BP 122/65
--- NOTE | 2017-02-18 15:15 | NUR ---
SM BM NOTED AFTER SUPPOSITORY GIVEN.
[2017-02-18 19:00] VITALS: BP 156/57
--- NOTE | 2017-02-18 19:31 | NUR ---
RESUMED CARE OF PT, LYING IN BED RESPIRATIONS EVEN AND UNLABORED ON 2LPM VIA NC. 71 SR ON TELEMETRY. NO NEEDS VOICED AT THIS TIME, CALL LIGHT IN REACH. SEE NURSE ASSESSMENT. WILL CONTINUE TO MONITOR.
--- NOTE | 2017-02-19 01:05 | NUR ---
CALL LIGHT IN REACH, WILL CONTINUE WITH PLAN OF CARE.
[2017-02-19 04:00] VITALS: BP 136/55
[2017-02-19 06:03] LABS: BASOPHILS 0.4 % (0-2); EOSINOPHILS 1.7 % (0-7); HEMOGLOBIN 12.4 g/dL (12-16); IMMATURE GRANULOCYTES 0.3 % (0-5); LYMPHOCYTES 26.2 % (15-50); MCH 31.9 pg (26.0-34.0); MCHC 33.5 g/dL (31.0-37.0); MCV 95.1 fL (80.0-100.0); MEAN PLATELET VOLUME 12.2 fL (7.4-10.4); MONOCYTES 14.7 % (2-11); NEUTROPHILS 56.7 % (40-80); RBC 3.89 10x6/uL (4.00-5.40); RDW 12.1 % (11.5-14.5); WBC 14.4 10x3/uL (4.8-10.8)
[2017-02-19 06:24] LABS: PLATELET COUNT 345 10x3/uL (130-400)
--- NOTE | 2017-02-19 06:28 | NUR ---
NO CHANGES FROM PREVIOUS ASSESSMENT, 65 SR ON TELEMETRY.
[2017-02-19 06:31] LABS: ALBUMIN 2.3 g/dL (3.4-5.0); ALKALINE PHOSPHATASE 181 U/L (46-116); ALT (SGPT) 37 U/L (10-68); CALC OSMOLALITY 272 mosm/kg (275-300); CALCIUM 8.7 mg/dL (8.5-10.1); CARBON DIOXIDE 29.5 mmol/L (21.0-32.0); CHLORIDE - SERUM 97 mmol/L (98-107); CREATININE - SERUM 0.6 mg/dL (0.6-1.3); GLUCOSE 152 mg/dL (74-106); PROTEIN - SERUM 6.9 g/dL (6.4-8.2); SODIUM 135 mmol/L (136-145); UREA NITROGEN 13 mg/dL (7-18); eGFR NON AFRICAN AMERICAN > 90 mL/min (90-120)
--- NOTE | 2017-02-19 07:30 | NUR ---
RECEIVED PT IN BED RESTING QUIETLY
[2017-02-19 08:00] VITALS: BP 145/67
--- NOTE | 2017-02-19 10:49 | NUR ---
Patient Name: ERNIE VILLALBA Encounter No: [id number] : 1950 Primary Insurance: MEDICARE A & B Anticipated DC Date: 02-19-2017 Planned Disposition: Inpatient Rehab External Planned Provider: : TARA follow-up note: CM RECEIVED ORDER FOR REHAB PLACEMENT, SPOKE TO PT IN ROOM WHO IS STILL IN AGREEMENT WITH DISCHARGE TO [facility]. CM SPOKE TO CHYNA OF INPATIENT REHAB, THEY PLAN TO ACCEPT PT TODAY, IF STABLE FOR DISCHARGE. CM CALLED AND SPOKE TO DR. NAM IN CLINIC WHO REPORTS PT STABLE FOR DISCHARGE TO CLINIC, WILL DISCHARGE AT [facility] TODAY. CM NOTIFIED PT, BEDSIDE NURSE AND PREP MANAGER NURSE. CM CALLED AND LEFT MESSAGE FOR [facility] OF INPATIENT REHAB. [facility] IN[facility] TO CONTACT MED 2 NURSE WITH ROOM NUMBER WHEN READY TO ACCEPT PT AND NURSE REPORT. Abiodun Burns, CASE MANAGEMENT
--- NOTE | 2017-02-19 12:14 | NUR ---
FSBS 191 REGULAR INSULIN 4 UNITS GIVEN SQ LT ARM
[2017-02-19] MEDS ORDERED: VIBRAMYCIN 100100 MG PO (13:10)
--- NOTE | 2017-02-19 18:10 | NUR ---
OT NOTE: PT COMPLETED HYGIENE WITH MOD A. PT COMPLETED GROOMING WITH SET UP. PT COMPLETED BED MOB WITH MOD A. PT COMPLETED BUE AROM EXS FOR INCREASED AX TOLERANCE. THANK YOU, ALICIA CHÁVEZ
--- NOTE | 2017-02-19 18:30 | NUR ---
PT DISCHARGED TO REHAB IN STABLE CONDITION TRANSFERED VIA W/C WITH ALL PERSONAL BELONGINGS
--- NOTE | 2017-02-21 13:54 | CN ---
PATIENT NAME:ERNIE VILLALBA MEDICAL RECORD: [id number] : 50 LOCATION:D.M2 D.2115 ADMIT DATE: 02/14/17 ACCOUNT: [id number] CONSULTING PHYSICIAN: BRAXTON WRIGHT MD REFERRING PHYSICIAN: CAMILA NAM MD PROCEDURES: 1. Percutaneous transluminal coronary angioplasty stent left circumflex. 2. Left heart catheterization. 3. Selective coronary angiography. 4. Vein graft angiography. 5. Left internal mammary artery angiography. 6. Left ventriculogram. INDICATION: 1. Unstable angina. PROCEDURE IN DETAIL: After informed consent was obtained and after detailed explanation of risks, benefits, as well as alternative therapies, the patient elected to proceed with angiogram and angioplasty. The right femoral area was prepped and draped in a normal sterile fashion. The right femoral artery was cannulated via modified Seldinger technique with placement of 6-Divehi sheath. All catheters exchanged through this sheath. FINDINGS: The left ventriculogram was performed in standard 30 degree DE LA CRUZ view, reveals good cardiac wall motion throughout all segments. Overall ejection fraction estimated 60%. SELECTIVE CORONARY ANGIOGRAPHY: 1. Left main is with no significant angiographic disease. 2. Left anterior descending is totally occluded. 3. Left internal mammary artery to the left anterior descending is widely patent. 4. The left circumflex has 80% stenosis in the mid vessel. 5. Vein graft to the circumflex is closed. 6. The right coronary artery has 100% stenosis in the proximal vessel. 7. Vein graft to the right coronary artery is widely patent, however, the distal right coronary artery has 80+% stenosis. PTCA STENT OF THE LEFT CIRCUMFLEX: The stents used were 2.5 X 22 millimeters and 2.5 X 15 millimeters both [place] stents. The result was 0% residual stenosis. OVERALL IMPRESSION: Successful percutaneous transluminal coronary angioplasty stent of the left circumflex going from 80% initial stenosis to 0% residual. PLAN: Will plan for percutaneous transluminal coronary angioplasty stent of the right coronary artery through the vein graft in the near future. BRAXTON WRIGHT MD at 1354 CC: [id number] DICTATION DATE: 02/14/17 1500 INTERSTATE BUS DRIVER: DM 02/15/17 1427 DIS IN 02/19/17 [place] [id number] [place] [id number]
--- NOTE | 2017-02-21 13:54 | OP ---
PATIENT NAME: ERNIE VILLALBA MEDICAL RECORD: [id number] :50 LOCATION:D.M2 D.2115 ADMISSION DATE:02/14/17 SURGEON: BRAXTON WRIGHT MD OPERATION DATE: 02/14/17 PROCEDURES: 1. Percutaneous transluminal coronary angioplasty stent right coronary artery through patent vein graft. 2. Selective vein graft and coronary angiography. INDICATION: 1. Angina. 2. Coronary artery disease. PROCEDURE IN DETAIL: After informed consent was obtained and after detailed explanation of risks, benefits, as well as alternative therapies, the patient elected to proceed with angiogram and angioplasty. The left femoral area was prepped and draped in a normal sterile fashion. The left femoral artery was cannulated via modified Seldinger technique with placement of 6-Grenadian sheath. All catheters exchanged through this sheath. FINDINGS: The right coronary artery vein graft is widely patent. However, the right coronary artery has 80% stenosis in the distal right coronary artery after the vein graft. This was addressed with a 2.25 X 15 millimeter Bart[place] stent. The result was 0% residual stenosis. OVERALL IMPRESSION: Successful percutaneous transluminal coronary angioplasty stent of the right coronary artery through the patent vein graft going from 80% initial stenosis to 0% residual stenosis. BRAXTON WRIGHT MD at 1354 CC: [id number] DICTATION DATE: 02/14/17 1500 STREAM CONTROL OFFICER: JOSÉ LUIS 02/15/17 1413 DIS IN 02/19/17 [facility] [address] [place] [id number]
== END 2017-02-19 18:30 | DRG 246 ==
LOC: OBSVTIME → D.ER 02:23 → D.CATH 02:23 → D.M2 06:27 → OBSVTIME 06:27 → D.M2 06:27 → D.ER 06:27 → EDSTATUS 12:00 → D.M2 02-14 15:46
PROVIDERS: Emergency Medicine; Internal Medicine Interventional Cardiology; ADMIT Family Medicine
PROC: 4A023N7 Measurement of Cardiac Sampling and Pressure, Left Heart, Percutaneous Approach (ICD-10-PCS; 2017-02-13)
PROC: B2121ZZ Fluoroscopy of Single Coronary Artery Bypass Graft using Low Osmolar Contrast (ICD-10-PCS; 2017-02-13)
PROC: B2111ZZ Fluoroscopy of Multiple Coronary Arteries using Low Osmolar Contrast (ICD-10-PCS; 2017-02-13)
PROC: B2181ZZ Fluoroscopy of Left Internal Mammary Bypass Graft using Low Osmolar Contrast (ICD-10-PCS; 2017-02-13)
PROC: B2151ZZ Fluoroscopy of Left Heart using Low Osmolar Contrast (ICD-10-PCS; 2017-02-13)
PROC: 027035Z Dilation of Coronary Artery, One Artery with Two Drug-eluting Intraluminal Devices, Percutaneous Approach (ICD-10-PCS; principal; 2017-02-13 12:00)
PROC: 027034Z Dilation of Coronary Artery, One Artery with Drug-eluting Intraluminal Device, Percutaneous Approach (ICD-10-PCS; 2017-02-14)
DX: I21.4 Non-ST elevation (NSTEMI) myocardial infarction (principal); I50.21 Acute systolic (congestive) heart failure; Z68.41 Body mass index [BMI] 40.0-44.9, adult; N39.0 Urinary tract infection, site not specified; I25.110 Atherosclerotic heart disease of native coronary artery with unstable angina pectoris; Z95.1 Presence of aortocoronary bypass graft; E11.9 Type 2 diabetes mellitus without complications; E66.01 Morbid (severe) obesity due to excess calories; B37.3 Candidiasis of vulva and vagina; K59.00 Constipation, unspecified; M75.22 Bicipital tendinitis, left shoulder; I11.0 Hypertensive heart disease with heart failure; I50.9 Heart failure, unspecified; Z86.73 Personal history of transient ischemic attack (TIA), and cerebral infarction without residual deficits; J44.9 Chronic obstructive pulmonary disease, unspecified; R53.1 Weakness

== ENCOUNTER 2017-02-19 15:29 | Inpatient (IN) | payer MEDICARE ==
[~2017-02-19] VITALS: Ht 165.1 cm; Wt 112.5 kg
[~2017-02-19 15:29] MED LIST: FUROSEMIDE20 MG PO; GLUCOPHAGE500 MG PO; HUMALOG 30100 UNITS/ SC; ISOSORBIDE MONO60 M1 PO; LANTUS INSULIN10 ML SC; LISINOPRIL10 MG PO; LYRICA200 MG PO; METOPROLOL TART50 MG PO; NITROSTAT0.4 MG SL; PLAVIX75 MG PO; PROAIR HFA8.5 GM INH; PROZAC20 MG PO; VIBRAMYCIN 100100 MG PO; VOLTAREN75 MG PO
--- NOTE | 2017-02-19 19:30 | NUR ---
FAMILY PRESENT AND ENCOURAGED TO BRING CLOTHES FOR MOTHER TO WEAR WHILE IN REHAB INCLUDING NONSLIP SHOES. ADMISSION PROCESS INITIATED, DAUGHTER ASSISTED IN PROVIDING HEALTH INFORMATION.
[2017-02-19 20:07] VITALS: BP 155/51
--- NOTE | 2017-02-19 21:15 | NUR ---
LINEN CHANGED R/T INCONTINENCE. PT STATED SHE SNEEZED AND HAD NO CONTROL. 2 PINK PADS SATURATED. PT ABLE TO ROLL SELF OVER IN BED.
--- NOTE | 2017-02-20 01:18 | NUR ---
PT RESTING QUIETLY IN SUPINE POSITION WITH HOB ELEVATED 20. OXYGEN NC AT 2L. EYES CLOSED, RESPIRATIONS REGULAR AND UNLABORED.
[2017-02-20 05:51] LABS: BASOPHILS 0.4 % (0-2); EOSINOPHILS 1.7 % (0-7); HEMATOCRIT 37.5 % (36.0-48.0); HEMOGLOBIN 12.6 g/dL (12-16); IMMATURE GRANULOCYTES 0.2 % (0-5); LYMPHOCYTES 22.7 % (15-50); MCH 31.9 pg (26.0-34.0); MCHC 33.6 g/dL (31.0-37.0); MCV 94.9 fL (80.0-100.0); MEAN PLATELET VOLUME 12.2 fL (7.4-10.4); MONOCYTES 13.4 % (2-11); NEUTROPHILS 61.6 % (40-80); PLATELET COUNT 339 10x3/uL (130-400); RBC 3.95 10x6/uL (4.00-5.40); WBC 11.8 10x3/uL (4.8-10.8)
[2017-02-20 06:08] LABS: CALC OSMOLALITY 276 mosm/kg (275-300); CALCIUM 8.5 mg/dL (8.5-10.1); CARBON DIOXIDE 30.3 mmol/L (21.0-32.0); CHLORIDE - SERUM 99 mmol/L (98-107); CREATININE - SERUM 0.7 mg/dL (0.6-1.3); POTASSIUM - SERUM 4.6 mmol/L (3.5-5.1); SODIUM 135 mmol/L (136-145); UREA NITROGEN 16 mg/dL (7-18); eGFR NON AFRICAN AMERICAN 89 mL/min (90-120)
--- NOTE | 2017-02-20 06:16 | NUR ---
PT INCONTINENT OF URINE. CLEANED, NO S/S OF ACUTE DISTRESS.
[2017-02-20 06:20] LABS: GLUCOSE 213 mg/dL (74-106)
[2017-02-20 07:40] VITALS: BP 131/53
--- NOTE | 2017-02-20 08:11 | NUR ---
PT SITTING UP IN BED EATING BREAKFAST, DENIES NEEDS.
--- NOTE | 2017-02-20 12:10 | NUR ---
PATIENT ADMITTED TO REHAB FROM ACUTE FLOOR. HER PCP IS DR. LANE PORTILLO. [facility] IS HER [facility] . SHE [facility] AT [facility]. PLANS ARE FOR HER TO RETURN TO HER HOME.WILL CONTINUE TO FOLLOW WITH PATIENT
[2017-02-20 12:14] VITALS: Ht 165.1 cm; Wt 112.5 kg
--- NOTE | 2017-02-20 15:37 | NUR ---
PT IN THERAPY, TOLERATING WELL. WCTM.
--- NOTE | 2017-02-20 17:56 | NUR ---
PT SITTING UP EATING DINNER. PT DENIES NEEDS. FAMILY AT BEDSIDE. WCTM.
[2017-02-20 19:00] VITALS: BP 114/51
--- NOTE | 2017-02-20 19:15 | NUR ---
SITTING UP IN W/C AT BEDSIDE. O2 @ 2L PER N/C.
--- NOTE | 2017-02-20 20:00 | NUR ---
REMAINS SEATED IN W/C AT BEDSIDE. O2 @ 2L PER N/C.
--- NOTE | 2017-02-20 20:05 | NUR ---
RETURNED CALL TO PATIENT'S DAUGHTER HAYDEN AFTER INFORMING PATIENT I WAS GOING TO DO SO. DAUGHTER EXPLAINED THAT PATIENT'S OTHER DAUGHTER CAN BE DIFFICULT ON STAFF WELL CAN PATIENT'S AND SHE APOLOGIZED IN ADVANCE IF THEIR BEHAVIOR BECOMES DIFFICULT. NEITHER IS PRESENT AT THIS TIME. PATIENT HERSELF REPORTED THAT SHE WILL BE LIVING WITH HAYDEN AFTER SHE DISCHARGES, AND THAT HER OTHER DAUGHTER CAN BE VERY DIFFICULT WITH STAFF AT TIMES. SHE ALSO APOLOGIZED FOR HER OTHER DAUGHTER SHE THOUGHT SHE MAY HAVE OFFENDED DAY SHIFT NURSE EARLIER. TOLD HER THAT IF IT HAD OCCURRED, IT WAS NOT REPORTED TO ME IN REPORT.
--- NOTE | 2017-02-20 22:00 | NUR ---
ASSESSMENT AND HS MEDS COMPLETE. ASSISTED PATIENT UP TO BR TO URINATE AND CHANGE TO HOSPITAL GOWN FOR HS. THEN RETURNED HER TO BED TO LIE DOWN. DENIES FURTHER NEEDS. MEGHANN ALARM IS ARMED. SR UP X3 WITH WATER AND CALL LIGHT IN REACH.
--- NOTE | 2017-02-21 00:40 | NUR ---
IN BED, EYES CLOSED. SNORING SOFTLY.
--- NOTE | 2017-02-21 02:45 | NUR ---
RESTING IN BED, EYES CLOSED. NO DISTRESS EVIDENT.
--- NOTE | 2017-02-21 04:40 | NUR ---
RESTING IN BED, EYES CLOSED. RESPIRING QUIETLY.
--- NOTE | 2017-02-21 05:45 | NUR ---
ASSISTED PATIENT UP TO BR COMMODE TO URINATE. CHANGED HER BRIEF DUE TO VERY SMALL URINE INCONTINENCE. PATIENT DONNED FRESH TOP BUT HER PANTS ARE RICARDO TIGHT AND WOULD BE UNCOMFORTABLE IN BED UNTIL BREAKFAST TIME. SHE WILL REMAIN IN BED WITHOUT THEM FOR NOW. DENIES FURTHER NEEDS.
[2017-02-21 06:33] LABS: BASOPHILS 0.3 % (0-2); EOSINOPHILS 3.2 % (0-7); HEMATOCRIT 36.2 % (36.0-48.0); HEMOGLOBIN 12.1 g/dL (12-16); IMMATURE GRANULOCYTES 0.6 % (0-5); LYMPHOCYTES 24.2 % (15-50); MCH 31.8 pg (26.0-34.0); MCHC 33.4 g/dL (31.0-37.0); MEAN PLATELET VOLUME 12.4 fL (7.4-10.4); MONOCYTES 13.2 % (2-11); NEUTROPHILS 58.5 % (40-80); PLATELET COUNT 351 10x3/uL (130-400); RBC 3.81 10x6/uL (4.00-5.40); WBC 11.6 10x3/uL (4.8-10.8)
[2017-02-21 07:02] LABS: ANION GAP 11.6 mmol/L (8-16); CALCIUM 8.8 mg/dL (8.5-10.1); CARBON DIOXIDE 30.7 mmol/L (21.0-32.0); POTASSIUM - SERUM 4.3 mmol/L (3.5-5.1)
[2017-02-21 07:09] LABS: CREATININE - SERUM 0.9 mg/dL (0.6-1.3)
--- NOTE | 2017-02-21 07:31 | NUR ---
RESTING QUIETLY IN BED. EYES CLOSED. NO S/S DISTRESS OR NEEDS. CALL LIGHT IN REACH.
[2017-02-21 07:55] VITALS: BP 137/58
--- NOTE | 2017-02-21 10:23 | NUR ---
PATIENT ALERT/ORIENT X4. CALL LIGHT WITHIN REACH. VOICES NO NEEDS. OXYGEN ON AT 2L PER N/C.
--- NOTE | 2017-02-21 12:31 | NUR ---
GLUCOSE LEVEL 234. SCHEDULED INSULIN GIVEN
--- NOTE | 2017-02-21 14:56 | NUR ---
CARE TEAM MEETING: PATIENT NEW TO UNIT AND WILL BE RA AT NEXT MEETING. PLANS ARE FOR PATIENT TO RETURN HOME. WILL CONTINUE TO FOLLOW WITH PATIENT
--- NOTE | 2017-02-21 15:10 | NUR ---
PATIENT IN REHAB ROOM. WORKING WITH PHYSICAL THERAPIST. DENIES ANY PAIN/DISC AT THIS TIME. TRANSFERS FROM WHEELCHAIR TO WHEELED WALKER WITH MIN TO STAND BY ASST
[2017-02-21 19:00] VITALS: BP 135/79
--- NOTE | 2017-02-21 19:30 | NUR ---
BACK IN BED WITH LABEL MACHINE OPERATOR ASSIST AFTER RECENT TRIP TO TO URNATE AND CHANGE TO GOWN FOR HS. DENIES CURRENT NEEDS.
--- NOTE | 2017-02-21 22:05 | NUR ---
ASSESSMENT AND HS MEDS COMPLETE. GAVE PATIENT NORCO 5/325 1 TAB PO FOR PAIN LEVEL OF 4/10 IN LOW BACK. PATIENT QUITE DROWSY. DENIES FURTHER NEEDS.
--- NOTE | 2017-02-22 00:30 | NUR ---
IN BED, EYES CLOSED. NO APPARENT DISCOMFORT.
--- NOTE | 2017-02-22 02:00 | NUR ---
REMAINS IN BED, EYES CLOSED.
--- NOTE | 2017-02-22 04:20 | NUR ---
PATIENT JUST RETURNED FROM ASSIST TO BR BY ROSANA RICHARDSON, WHILE I WAS ON LUNCH BREAK. PATIENT HAS NO C/O AT THIS TIME.
--- NOTE | 2017-02-22 05:55 | NUR ---
ASSISTED PATIENT TO [facility] GOWN TO PANTS AND A TOP FOR THERAPY. REPOSITIONED HER UP IN BED. DENIES NEEDS.
--- NOTE | 2017-02-22 07:33 | NUR ---
PT RESTING IN BED, DENIES NEEDS. WCTM.
[2017-02-22 08:00] VITALS: BP 139/60
--- NOTE | 2017-02-22 08:55 | NUR ---
PT AM MEDS ADMINISTERED. PT FSBS 348. ORDERED INSULIN GIVEN. PT DENIES NEEDS. WCTM.
--- NOTE | 2017-02-22 10:02 | NUR ---
Nutrition Follow Up: Pt is eating 96% meal avg on a diabetic diet. No BM since admit. Wt stable. Labs reviewed - Glucose continues elevated. Meds noted including Lantus, Lasix, Metformin. Rec continue current diet. RD following.
--- NOTE | 2017-02-22 11:55 | NUR ---
PT FSBS 370 AT THIS TIME. ORDERED INSULIN GIVEN. WCTM.
--- NOTE | 2017-02-22 15:00 | NUR ---
PT IN THERAPY, TOLERATING WELL. WCTM.
[2017-02-22 19:21] VITALS: BP 125/54
--- NOTE | 2017-02-22 19:30 | NUR ---
PATIENT IN BED, AWAKE. DENIES CURRENT NEEDS.
--- NOTE | 2017-02-22 21:25 | NUR ---
ASSESSMENT AND HS MEDS COMPLETE. GAVE PATIENT NORCO 5/325 X2 TABS PO FOR PAIN LEVEL OF 6/10 IN LOW BACK.
--- NOTE | 2017-02-22 23:45 | NUR ---
ASSISTED PATIENT UP TO BR COMMODE AND BACK TO BED. DENIE FURTHER NEEDS.
--- NOTE | 2017-02-23 02:10 | NUR ---
RESTING IN BED, EYES CLOSED. SNORING SOFTLY. NO DISTRESS EVIDENT.
--- NOTE | 2017-02-23 04:45 | NUR ---
REMAINS IN BED, EYES CLOSED. RESPIRING QUIETLY.
--- NOTE | 2017-02-23 06:10 | NUR ---
ASSISTED PATIENT UP TO BR TO URINATE AHD CHANGE FROM GOWN TO CLOTHES FOR THERAPY.
[2017-02-23 07:05] LABS: BASOPHILS 0.5 % (0-2); EOSINOPHILS 3.4 % (0-7); IMMATURE GRANULOCYTES 0.4 % (0-5); LYMPHOCYTES 36.4 % (15-50); MCH 31.6 pg (26.0-34.0); MCHC 33.3 g/dL (31.0-37.0); MCV 94.7 fL (80.0-100.0); MONOCYTES 9.6 % (2-11); NEUTROPHILS 49.7 % (40-80); PLATELET COUNT 403 10x3/uL (130-400); RDW 12.1 % (11.5-14.5); WBC 10.9 10x3/uL (4.8-10.8)
[2017-02-23 07:17] LABS: CALCIUM 8.7 mg/dL (8.5-10.1); CARBON DIOXIDE 28.8 mmol/L (21.0-32.0)
[2017-02-23 07:23] LABS: ANION GAP 10.2 mmol/L (8-16)
--- NOTE | 2017-02-23 07:40 | NUR ---
PT SITTING UP IN BED RESTING, WAITING FOR BREAKFAST, DENIES NEEDS. WCTM.
[2017-02-23 08:00] VITALS: BP 96/48
--- NOTE | 2017-02-23 08:35 | NUR ---
PT AM MEDS ADMINISTERED. PT DENIES NEEDS. WCTM.
--- NOTE | 2017-02-23 11:24 | OP ---
PATIENT NAME: ERNIE VILLALBA MEDICAL RECORD: [id number] :50 LOCATION:DSOULEYMANE D.1111 ADMISSION DATE:02/19/17 SURGEON: BRAXTON WRIGHT MD DATE OF OPERATION: 02/13/2017 PROCEDURES: 1. PTCA stent left circumflex. 2. Left heart catheterization. 3. Selective coronary angiography. 4. Left ventriculogram. 5. Vein graft angiography. 6. CURRY angiography. INDICATION: Angina and coronary artery disease. PROCEDURE IN DETAIL: After informed consent was obtained and after detailed explanation of risks, benefits as well as alternative therapies, the patient elected to proceed with angiogram and angioplasty. The right femoral area is prepped and draped in normal sterile fashion. The right femoral artery was cannulated via modified Seldinger technique with placement of 6-Serbian sheath. All catheters exchanged through this sheath. FINDINGS: The left ventriculogram was performed in standard 30-degree DE LA CRUZ view, reveals good cardiac wall motion throughout all segments. Overall ejection fraction estimated at 55%. SELECTIVE CORONARY ANGIOGRAPHY: 1. Left main showed no significant angiographic disease. 2. Left anterior descending is totally occluded in the proximal vessel. 3. CURRY to the distal LAD is widely patent. 4. Left circumflex has a long area of 80% stenosis in the mid vessel. 5. Vein graft to the circumflex is closed. 6. Right coronary is totally occluded. 7. Vein graft to the right coronary is patent; however, the PLV has a long area of 70% to 80% stenosis. PTCA STENT OF THE LEFT CIRCUMFLEX: The stents used were 2.5 x 22 and 2.5 x 18, both Erasmo stents. Result was 0% residual stenosis. OVERALL IMPRESSION: Successful percutaneous transluminal coronary angioplasty stent of the left circumflex going from 80% initial stenosis to 0% residual. PLAN: PTCA stent of the RCA in the near future. TRANSINT:[id number] Voice Confirmation ID: [id number] DOCUMENT ID: [id number] BRAXTON WRIGHT MD at 1124 CC: [id number] DICTATION DATE: 02/21/17 1712 GAS ENGINE OPERATOR COMPRESSORS: 02/22/17 0058 [place] [address]
--- NOTE | 2017-02-23 11:52 | NUR ---
PT IN THERAPY GYM, TOLERATING WELL. DENIES NEEDS. WCTM.
--- NOTE | 2017-02-23 13:44 | NUR ---
PT SITTING UP IN WC WATCHING TV, DENIES NEEDS. WCTM.
--- NOTE | 2017-02-23 18:44 | NUR ---
PT SITTING UP IN WC WATCHING TV, DENIES NEEDS. WCTM.
[2017-02-23 19:50] VITALS: BP 128/98
--- NOTE | 2017-02-23 20:00 | NUR ---
ASSESSMENT AND HS MEDS COMPLETE. GAVE HER NORCO 5/325 X1 TAB PO FOR PAIN LEVEL OF 5/10 IN LOW BACK.
--- NOTE | 2017-02-23 21:50 | NUR ---
RESTING QUIETLY IN BED, EYES CLOSED.
--- NOTE | 2017-02-24 | NUR ---
ASSISTED PATIENT UP TO BR TO URINATE AND THEN BACK TO BED. DENIES FURTHER NEEDS.
--- NOTE | 2017-02-24 02:15 | NUR ---
RESTING QUIETLY IN BED, EYES CLOSED.
--- NOTE | 2017-02-24 05:50 | NUR ---
RESTING QUIETLY, EYES CLOSED.
[2017-02-24 08:00] VITALS: BP 149/62
--- NOTE | 2017-02-24 08:00 | NUR ---
SHIFT ASSMT COMPLETED.BREAKFAST GIVEN.CL IN REACH.
--- NOTE | 2017-02-24 12:00 | NUR ---
EATING LUNCH.DENIES NEEDS.
[2017-02-24 20:00] VITALS: BP 114/45
--- NOTE | 2017-02-24 20:00 | NUR ---
PT IN BED WITH HOB UP FOR COMFORT. WATCHING TV. FSBS TID. 02 @ 2L VIA N/C. NO IV. BED IN LOWEST POSITION AND CALL LIGHT WITHIN REACH.
--- NOTE | 2017-02-24 22:18 | NUR ---
PT STATES SHE WAS WORRIED THAT HER BS WAS DROPING. CHECKED PT'S BS AND IT IS 111. WILL CONTINUE TO MONITOR PT'S BS ORDERED.
--- NOTE | 2017-02-24 22:54 | NUR ---
PT. IN BED WITH HOB UP FOR COMFORT AND IS EATING HER HS SNACK. NO VOICED NEEDS AT THIS TIME AND HER CALL LIGHT IS WITHIN REACH.
--- NOTE | 2017-02-25 00:28 | NUR ---
RESTING IN BED WITH EYES CLOSED. NO S/S OF DISTRESS OBSERVED. XALL LIGHT AND WATER IN REACH.
--- NOTE | 2017-02-25 02:20 | NUR ---
PT LYING IN BED WITH HOB UP FOR COMFORT. EYES CLOSED. RESP. EVEN. BED IN POSITION AND CALL LIGHT WITHIN REACH.
--- NOTE | 2017-02-25 04:20 | NUR ---
PT LYING ING BED. EYES CLOSED. CHEST RISING AND FALLING. BED IN LOWEST POSITION AND CALL LIGHT WITHIN REACH.
[2017-02-25 08:00] VITALS: BP 100/52
--- NOTE | 2017-02-25 08:00 | NUR ---
SHIFT ASSMT COMPLETED.CL IN REACH.NOT WEARING O2.SATS 97% ON RA.O2 DC'D.
[2017-02-25 20:00] VITALS: BP 152/50
--- NOTE | 2017-02-25 20:14 | NUR ---
UP IN W/C. PLEASANT, TALKATIVE AND SMILING. STATES " IFEEL BETTER THAN I'VE FELT IN A LONG TIME. DENIES ANY PAIN.
--- NOTE | 2017-02-26 01:17 | NUR ---
CALLED TO ROOM BY PT. REQUESTING BLOOD SUGAR BE CHECKED. STATED 'I DONT FEEL RIGHT . THIS IS HOW I FEEL WHEN MY SUGAR IS LOW. FSBS CHECKED AND RESULTS 157. PT. STATED " MAYBE I JUST NEED TO MOVE AROUND OR SOMETHING"
--- NOTE | 2017-02-26 02:16 | NUR ---
RESTING IN BED WITH EYES CLOSED. NO S/S OF DISTRESS OBSERVED. O2@ 2 LITERS PER N/C IN PLACE. RESPIRATIONS EVEN AND UNLABORED. CALL LIGHT AND OVERBED TABLE IN REACH.
[2017-02-26 07:05] LABS: BASOPHILS 0.4 % (0-2); EOSINOPHILS 3.2 % (0-7); HEMATOCRIT 35.7 % (36.0-48.0); IMMATURE GRANULOCYTES 0.3 % (0-5); LYMPHOCYTES 34.2 % (15-50); MCH 31.3 pg (26.0-34.0); MCHC 33.6 g/dL (31.0-37.0); MCV 93.2 fL (80.0-100.0); MEAN PLATELET VOLUME 11.6 fL (7.4-10.4); MONOCYTES 8.9 % (2-11); PLATELET COUNT 375 10x3/uL (130-400); RBC 3.83 10x6/uL (4.00-5.40); WBC 9.5 10x3/uL (4.8-10.8)
[2017-02-26 07:35] LABS: CALC OSMOLALITY 281 mosm/kg (275-300); CALCIUM 8.7 mg/dL (8.5-10.1); CHLORIDE - SERUM 103 mmol/L (98-107); CREATININE - SERUM 0.7 mg/dL (0.6-1.3); GLUCOSE 127 mg/dL (74-106); POTASSIUM - SERUM 4.8 mmol/L (3.5-5.1); SODIUM 138 mmol/L (136-145); UREA NITROGEN 25 mg/dL (7-18); eGFR NON AFRICAN AMERICAN 89 mL/min (90-120)
[2017-02-26 08:27] VITALS: BP 179/69
--- NOTE | 2017-02-26 08:45 | NUR ---
PT AM MEDS ADMINISTERED. PT REQ AND REC'D PRN TUMS FOR HEARTBURN. WCTM.
--- NOTE | 2017-02-26 11:53 | NUR ---
PT IN THERAPY. PT FSBS 218. PT GIVEN ORDERED 10 UNITS HUMALOG. PT DENIES NEEDS. WCTM.
--- NOTE | 2017-02-26 14:30 | NUR ---
PT HAD EPISODE OF INCONTINENT URINE WHILE SITTING UP IN WC. PT WC CLEANED AND PT CHANGED. PT DENIES FURTHER NEEDS. WCTM.
--- NOTE | 2017-02-26 16:53 | NUR ---
PT HAD INCONTINENT URINE EPISODE. PT CHANGED AND ASSISTED BACK TO . [facility].
--- NOTE | 2017-02-26 19:29 | NUR ---
RESTING IN BED WITH EYES OPEN. INCONTINENT OF BLADDER. PERICARE GIVEN AND LINEN CHANGED. DENIES ANY PAIN. CALL LIGHT AND OVERBED TABLE IN REACH.
--- NOTE | 2017-02-26 23:47 | NUR ---
RESTING IN BED WITH EYES CLOSED AT THIS TIME. NO S/S OF DISTRESS OBSERVED. CALL LIGHT AND OVERBED TABLE IN REACH.
[2017-02-27 04:33] VITALS: BP 164/61
--- NOTE | 2017-02-27 06:24 | NUR ---
ASSISTED TO TOILET THIS AM. NO INCONTINENT EPISODED THIS NIGHT. DID HAVE ONE WHEN COMMING ON TO SHIFT. RESTING IN BED WITH EYES CLOSED AT THIS TIME. BED ALARM IN PLACE AND FUNCTIONING PROPERLY.
--- NOTE | 2017-02-27 07:20 | NUR ---
PT IS RESTING IN HER ROOM WITH EYES OPEN. ALERT AND ORIENTED X 4. DENIES ACUTE DISCOMFORT AT THIS TIME. ASSISTED TO THE BATHROM WITH SBA FOR ALL TASKS, USING A RW. VOIDED WITHOUT DIFFICULTY. SR'S ARE UP X 2 WHILE IN BED. CALL LIGHT AND BEDSIDE TABLE ARE WITHIN EASY REACH.
[2017-02-27 08:13] VITALS: BP 154/53
--- NOTE | 2017-02-27 08:45 | NUR ---
PT UP IN THE SHOWER WITH THE SHADE CUTTER. NO DISTRESS NOTED.
--- NOTE | 2017-02-27 09:24 | NUR ---
PT IS PARTICIPATING IN THERAPY AT THIS TIME.
--- NOTE | 2017-02-27 11:30 | NUR ---
PT IS RESTING IN HER ROOM BETWEEN THERAPY SESSIONS. NO NEEDS VOICED.
--- NOTE | 2017-02-27 13:20 | NUR ---
PT IS PARTICIPATING IN THERAPY AT THIS TIME. NO ACUTE DISTRESS NOTED.
--- NOTE | 2017-02-27 13:44 | NUR ---
NUTRITION MONITORING & EVAL CHART REVIEWED, PT IN THERAPY. TOLERATING ADA DIET WITH ~100% INTAKE RECENT MEALS. RECENT BM RECORDED X2. RD FOLLOWING
--- NOTE | 2017-02-27 15:36 | NUR ---
PT IS RESTING IN BED WITH EYES CLOSED. NO DISTRESS NOTED.
--- NOTE | 2017-02-27 17:59 | NUR ---
PT IS SITTING IN HER WC IN HER ROOM. NO NEEDS VOICED. FILLING OUT MENU FOR TOMORROW.
--- NOTE | 2017-02-27 18:47 | NUR ---
RESTING QUIETLY IN BED. DENIES NEEDS OR C/O. CALL LIGHT IN REACH
--- NOTE | 2017-02-27 19:50 | NUR ---
SIT UP IN WHEELCHAIR AND TALKS TO ROOMMATE.
[2017-02-28 00:53] VITALS: BP 148/62
--- NOTE | 2017-02-28 01:52 | NUR ---
ASSISTED PT TO BATHROOM AND BACK TO BED.
--- NOTE | 2017-02-28 02:56 | NUR ---
REST QUIETLY IN BED, EYE CLOSE, BED LOW, CALL LIGHT WITHIN REACH.
--- NOTE | 2017-02-28 04:10 | NUR ---
PT RESTING QUIETLY, EYES CLOSED, RESPIRATIONS REGULAR AND UNLABORED, NO S/S OF ACUTE DISTRESS.
--- NOTE | 2017-02-28 07:30 | NUR ---
PT IS SITTING IN A WC IN HER ROOM FEEDING SELF BREAKFAST. ALERT AND ORIENTED X 3. VOICED COMPLAINT OF BACK PAIN LEVEL OF 6. MEDICATED PER MAR. FSBS IS 161. NO NEEDS VOICED. SR'S ARE UP X 2 IN BED. CALL LIGHT AND BEDSIDE TABLE ARE WITHIN EASY REACH.
[2017-02-28 08:24] VITALS: BP 170/59
--- NOTE | 2017-02-28 09:40 | NUR ---
PT IS PARTICIPATING IN THERAPY AT THIS TIME.
--- NOTE | 2017-02-28 11:04 | NUR ---
PT IS IN THE GYM WITH THERAPY. NO ACUTE DISTRESS NOTED.
--- NOTE | 2017-02-28 14:00 | NUR ---
PT IS IN THE GYM WITH THERAPY. NO DISTRESS NOTED.
--- NOTE | 2017-02-28 15:24 | NUR ---
NORCO PO PER PATIENT REQUEST.
--- NOTE | 2017-02-28 16:00 | NUR ---
PT IS RESTING IN BED WITH EYES CLOSED. NO DISTRESS NOTED.
--- NOTE | 2017-02-28 16:09 | NUR ---
CARE TEAM MEETING: PATIENT PROGRESSING WELL IN THERAPY AND WILL DISCHARGE HOME 03/01/17. PATIENT REQUEST A WHEELCHAIR FOR HOME USE. ORDER FAXED TO [facility] WITH CONFORMATION RECIEVED. WILL CONTINUE TO FOLLOW WITH PATIENT UNTIL DISCHARGED.
--- NOTE | 2017-02-28 18:17 | NUR ---
PT SITTING IN WC IN ROOM WATCHING TV. NO NEED VOICED.
[2017-02-28 19:38] VITALS: BP 162/75
--- NOTE | 2017-02-28 19:38 | NUR ---
PT RECEIVED SITTING UP IN BED WATCHING TV AT THIS TIME. AAOX3. PT REQUESTS MEDICATION FOR PAIN 01/06. ADMINISTERED NORCO PO PER ORDERS AT THIS TIME. ASSESSMENT COMPLETED PER FLOW SHEET AT THIS TIME. PT DENIES OTHER NEEDS. BED LOW. PHONE AND CALL LIGHT IN REACH. SRX2.
--- NOTE | 2017-02-28 21:25 | NUR ---
PM MEDS GIVEN AT THIS TIME. PT REQUESTS WILFREDO CRACKERS, PEANUT BUTTER, AND DIET COKE. DENIES OTHER NEEDS. BED LOW. PHONE AND CALL LIGHT IN REACH. SRX2.
--- NOTE | 2017-02-28 23:31 | NUR ---
PT RESTING QUIETLY AT THIS TIME WITH EYES CLOSED. RESPIRATIONS EVEN, NON-LABORED. NO ACUTE DISTRESS NOTED AT THIS TIME. BED LOW. PHONE AND CALL LIGHT IN REACH. SRX2.
[2017-03-01] MEDS ORDERED: NYSTATIN1 PWD TOPICAL (00:30)
--- NOTE | 2017-03-01 01:46 | NUR ---
PT RESTING QUIETLY AT THIS TIME WITH EYES CLOSED. RESPIRATIONS EVEN, NON LABORED. NO ACUTE DISTRESS NOTED AT THIS TIME. BED LOW. PHONE AND CALL LIGHT IN REACH. SRX2.
--- NOTE | 2017-03-01 07:36 | NUR ---
PT IS SITTING IN A WC IN HER ROOM FEEDING HERSELF BREAKFAST. NO SWALLOWING PROBLEMS NOTED. NO COMPLAINT VOICED. PT EXCITED TO BE GOING HOME TODAY. SR'S ARE UP X 2 WHILE IN BED. CALL LIGHT AND BEDSIDE TABLE ARE WITHIN EASY REACH.
--- NOTE | 2017-03-01 08:00 | NUR ---
SITTING UP IN CHAIR.PLAN TO DC HOME TODAY.CL IN REACH.
--- NOTE | 2017-03-01 09:34 | NUR ---
PATIENT DISCHRGING HOME TODAY WITH FAMILY. [facility] WILL FOLLOW WITH PATIENT. DAUGHTER WILL PROVIDE A ROLLING WALKER FOR HER MOTHER. APPOINTMENTS: MARIA ESTHER PORTILLO APN/ DR. GOLDSMITH 03/08/17 @ 3:00. DR. WRIGHT/ TRINIDAD BARRIENTOS 04/03/17 @ 10:00. ALL ORDERS HAVE BEEN FAXED WITH CONFORMATION RECIEVED
[2017-03-01 09:43] VITALS: BP 159/55
--- NOTE | 2017-03-01 10:40 | NUR ---
PT IS RESTING IN HER ROOM AWAITING HER RIDE TO GET HERE TO TAKE HER HOME. NO NEEDS VOICED. DC INSTRUCTIONS GIVEN. ALL MEDS CALLED IN TO LANE AT [facility].
--- NOTE | 2017-03-01 11:50 | NUR ---
PT DC'D TO HOME AT THIS TIME. DEPARTED UNIT VIA WC PROPELLED BY FAMILY.
== END 2017-03-01 11:50 | disposition home health service (06) | DRG 93 ==
LOC: D.REHAB 15:29
PROVIDERS: ADMIT Emergency Medicine
DX: G72.89 Other specified myopathies (principal); R53.1 Weakness; R53.83 Other fatigue; Z95.1 Presence of aortocoronary bypass graft; Z95.5 Presence of coronary angioplasty implant and graft; E11.9 Type 2 diabetes mellitus without complications; I10 Essential (primary) hypertension; J44.9 Chronic obstructive pulmonary disease, unspecified; I25.10 Atherosclerotic heart disease of native coronary artery without angina pectoris; M75.22 Bicipital tendinitis, left shoulder

== ENCOUNTER 2017-05-03 20:57 | Outpatient (CLI) | payer MEDICARE ==
--- NOTE | ~2017-05-03 | HEMODYNAMI ---
PATIENT:ERNIE VILLALBA MEDICAL RECORD: [id number] : 50 LOCATION:[address] ADMISSION DATE: 05/04/17 Generatedon:05/04/201714:08 Patient name: ERNIE VILLALBA Patient #: [id number] SSN: : 1950 Date of study: 05/04/2017 Page: Of Hemodynamic Procedure Report Patient Data Patient Demographics Procedure consent was obtained First Name: ERNIE Gender: Female Last Name: ORLY : 1950 Patient #: [id number] Age: 67 year(s) Race: Unknown Additional ID: [id number] Contact details [address]: [address] [place] [address] State: [place] City: [place] Zip code: [address] Past Medical History Allergies: No allergy information Admission Admission Data Admission Date: 05/04/2017 Admission Time: 1:17 Room #: 2125 Procedure Procedure Types Cath Procedure Diagnostic Procedure LHC LHC w/Coronaries w/Grafts PCI Procedure SVG-BMS/LALI Initial Miscellaneous Procedures Moderate Sedation up to 15 minutes Procedure Description Procedure Date Procedure Date: 05/04/2017 Procedure Start Time: 13:50 Procedure End Time: 14:07 Procedure Staff Name Function Moisés Galvan MD Performing Physician Briseida Oneal RT Scrub Laurel Lindo RN Nurse Alysa Servin RT Monitor Indication Angina Procedure Data Cath Procedure Fluoroscopy Diagnostic fluoroscopy Total fluoroscopy Time: 3.3 time: 3.3 min min Diagnostic fluoroscopy Total fluoroscopy dose: 383 dose: 383 mGy mGy Contrast Material Contrast Material Type Amount (ml) Isovue 300 92 Entry Location Entry Primary Successful Side Size Upsize Upsize Entry Closure Succes sful Closure Location (Fr) 1 (Fr) 2 (Fr) Remarks Device Remarks Femoral Right 5 Fr 6 Fr Exoseal artery Short Estimated blood loss: 10 ml Diagnostic catheters Device Type Used For End Catheter Placement Cordis 5Fr Pigtail Ventriculography Catheter (MP) Cordis 5Fr JL 4.0 Procedure Catheter (MP) Cordis 5Fr 3DRC Catheter Procedure (MP) Diagnostic Infinity 5Fr Procedure AR 2 MOD catheter Procedure Complications No complications Procedure Medications Medication Administration Route Dosage Plavix P.O. 75 mg Lidocaine 2% added to field 20 Heparin Flush Bag added to field 2 bags (1000units/500ml NS) 0.9% NaCl I.V. 100 ml/hr Versed I.V. 1 mg Fentanyl I.V. 50 mcg Versed I.V. 1 mg Fentanyl I.V. 50 mcg Fentanyl I.V. 50 mcg Heparin Bolus I.V. 4000 units Fentanyl I.V. 50 mcg Hemodynamics Rest Heart Rate: 80 (bpm) Snapshots Pre Cath Intra NCS Post Cath Vital Signs Time Heart Resp SPO2 NIBP (mmHg) Rhythm Pain Sedation Rate (ipm) (%) Status Level (bpm) 13:32:59 65 15 99 No Cuff NSR 3 (11) , 10(A) Tolerable 13:35:32 68 16 95 163/80(124) NSR 3 (11) , 10(A) Tolerable 13:40:27 70 13 95 135/73(102) NSR 3 (11) , 10(A) Tolerable 13:45:45 70 16 96 141/73(116) NSR 0 (11) , 10(A) No pain 13:51:45 68 15 95 130/69(93) NSR 0 (11) , 10(A) No pain 13:56:40 72 15 97 140/72(117) NSR 0 (11) , 10(A) No pain 14:01:01 75 18 96 138/68(97) NSR 0 (11) , 10(A) No pain 14:05:12 79 8 96 115/66(89) NSR 0 (11) , 10(A) No pain Medications Time Medication Route Dose Verified Delivered Reason Notes Effectiveness by by 13:39:37 Plavix P.O. 75 mg Moisés Buffie used for Cole Lindo cooker soda 13:39:55 Lidocaine 2% added 20ml Moisés Buffie used for to vial Cole Lindo cooker soda field 13:46:14 Heparin Flush added 2 Moisés Buffie used for Bag to bags Cole Lindo cooker soda (1000units/500ml field NS) 13:46:23 0.9% NaCl I.V. 100 Moisés Buffie Per physician ml/hr Cole Lindo RN 13:46:41 Versed I.V. 1 mg Moisés Rlie for sedation Cole Lindo RN 13:46:49 Fentanyl I.V. 50 Moisés Buffie for sedation mcg Cole Lindo RN 13:50:12 Versed I.V. 1 mg Moisés Buffie for sedation Cole Lindo RN 13:50:16 Fentanyl I.V. 50 Moisés Rlie for sedation mcg Cole Lidno RN 13:55:55 Fentanyl I.V. 50 Moisés Buffie for sedation mcg Cole Lindo RN 13:58:46 Heparin Bolus I.V. 4000 Moisés Buffie for verifi ed units Cole Lindo RN anticoagulation with dr galvan 14:01:07 Fentanyl I.V. 50 Moisés Buffie for sedation mcg Cole Lindo RN Procedure Log Time Note 12:58:58 Diagnostic Cath Status : Elective 12:59:42 Indication : Angina 12:59:56 Procedure type changed to Cath procedure, Diagnostic procedure, LHC, LHC w/Coronaries w/Grafts, PCI procedure, SVG-BMS/LALI Initial, Miscellaneous Procedures, Moderate Sedation up to 15 minutes 12:59:59 Briseida Oneal RT(R) sent for patient. Start room use. 13:00:00 Time tracking: Regular hours 13:00:03 Plan of Care:Hemodynamics will remain stable., Cardiac rhythm will remain stable., Comfort level will be maintained., Respiratory function will remain adequate., Patient/ family verbilizes understanding of procedure., Procedure tolerated without complication., Recovers from procedure without complications.. 13:20:06 Patient received from Med II to CCL 3 Alert and oriented. Tansferred to table in Supine position. 13:20:07 Warm blankets applied, and aminata hugger turned on for patient comfort. 13:20:08 Correct patient and procedure confirmed by team. 13:20:09 Signed procedure consent form obtained from patient. 13:20:10 ECG and BP/O2 sat monitors applied to patient. 13:20:10 Vital chart was started 13:20:11 Baseline sample Acquired. 13:20:19 Rhythm: sinus rhythm 13:20:22 Full Disclosure recording started 13:20:26 H&P Date Dictated: 05/04/2017 New H&P dictated by physician.. 13:20:28 Pre-procedure instructions explained to patient. 13:20:28 Pre-op teaching completed and patient verbalized understanding. 13:20:30 Family unavailable. 13:20:31 Patient NPO since Midnight. 13:20:36 Is the patient allergic to Iodine/contrast media? No. 13:20:39 Was the patient premedicated? No 13:20:40 Is patient on blood thinner?Yes 13:20:42 ACC The patient was administered the following blood thiners within the last 24 hours: ACCPlavix 13:20:45 Patient diabetic? Yes. 13:20:46 If diabetic: On Metformin? Yes 13:20:49 If on Metformin: Last Dose? 05/03/2017 13:20:54 Patient not . Patient is over age 55. 13:20:56 Previous problem with sedation/anesthesia? No ? 13:20:58 Snore? Yes 13:20:59 Sleep apnea? Yes 13:21:00 Deviated septum? No 13:21:00 Opens mouth fully? Yes 13:21:01 Sticks out tongue? Yes 13:21:05 Airway obstruction? Yes asthma 13:21:09 Dentures? No ? 13:21:13 Pre procedure: right dorsailis pedis pulse 1+ Palpable, but thready & weak; easily obliterated 13:21:15 Pre procedure: left dorsailis pedis pulse 1+ Palpable, but thready & weak; easily obliterated 13:21:17 Patient pain scale 0/10 ?. 13:21:25 IV patent on arrival in right hand with 0.9% NaCl at [facility]. 13:21:31 Lab results completed and on chart. 13:21:35 Right groin area was prepped with chlora-prep and draped in sterile fashion 13:21:35 Alarms reviewed by R. N. 13:21:36 Sharps counted by scrub and verified by R.N. 13:22:35 Baseline sample Acquired. 13:38:18 Zero performed for pressure channel P1 13:38:23 Zero performed for pressure channel P1 13:38:56 Physician paged 13:39:37 Plavix 75 mg P.O. was administered by Laurel Lindo RN; used for procedure; 13:39:50 Zero performed for pressure channel P1 13:39:55 Lidocaine 2% 20ml vial added to field was administered by Laurel Lindo RN; used for procedure; 13:42:38 Physician arrived 13:42:39 --------ALL STOP TIME OUT------ 13:42:41 Final Timeout: patient, procedure, and site verified with staff and physician. All members of the team are in agreement. 13:42:44 Right groin site verified by team. 13:42:49 Sedation plan: IV Moderate Sedation Versed, Fentanyl 13:46:14 Heparin Flush Bag (1000units/500ml NS) 2 bags added to field was administered by Laurel Lindo RN; used for procedure; 13:46:23 0.9% NaCl 100 ml/hr I.V. was administered by Laurel Lindo RN; Per physician; 13:46:41 Versed 1 mg I.V. was administered by Laurel Lindo RN; for sedation; 13:46:49 Fentanyl 50 mcg I.V. was administered by Laurel Lindo RN; for sedation; 13:49:58 Procedure started. 13:50:12 Versed 1 mg I.V. was administered by Laurel Lindo RN; for sedation; 13:50:16 Fentanyl 50 mcg I.V. was administered by Laurel Lindo RN; for sedation; 13:50:47 Local anesthetic to right femoral artery with Lidocaine 2% by Moisés Galvan MD.INITIAL ACCESS ONLY 13:51:34 A 5 Fr sheath was inserted into the Right Femoral artery 13:51:47 Use device set Femoral Dx 13:51:59 Acist Syringe opened to sterile field. 13:51:59 Bag Decanter opened to sterile field. 13:52:00 Medline Cath Pack opened to sterile field. 13:52:00 Terumo 5Fr [place] Sheath opened to sterile field. 13:52:00 St Matias 260cm J .035 wire opened to sterile field. 13:52:05 Acist Hand Control opened to sterile field. 13:52:06 Acist Manifold opened to sterile field. 13:52:06 Diagnostic Infinity 5Fr Multipack catheter opened to sterile field. 13:52:06 Tegaderm 4 x 4 opened to sterile field. 13:52:19 A Cordis 5Fr Pigtail Catheter (MP) was advanced over the wire and used for Ventriculography. 13:52:29 EF : 55 % 13:52:39 Catheter removed. 13:53:02 A Cordis 5Fr JL 4.0 Catheter (MP) was advanced over the wire and used for Procedure. 13:53:06 LCA angiography performed. 13:54:37 Catheter removed. 13:55:22 A Cordis 5Fr 3DRC Catheter (MP) was advanced over the wire and used for Procedure. 13:55:30 RCA angiography performed. 13:55:40 CURRY to LAD angiography performed. 13:55:55 Fentanyl 50 mcg I.V. was administered by Laurel Lindo RN; for sedation; 13:57:37 Catheter removed. 13:57:44 A Diagnostic Infinity 5Fr AR 2 MOD catheter was advanced over the wire and used for Procedure. 13:58:46 Heparin Bolus 4000 units I.V. was administered by Laurel Lindo RN; for anticoagulation; verified with dr galvan 13:59:19 Notch BasixCompak Inflation Kit opened to sterile field. 13:59:19 Schulz Whisper J 300cm 0.014 guide wire opened to sterile field. 13:59:20 DWNLDtronic Launcher 6Fr AR 2.0 guide catheter opened to sterile field. 14:00:30 Terumo 6Fr [place] Sheath opened to sterile field. 14:00:36 Catheter removed. 14:00:43 Proceeding to intervention. 14:00:56 Sheath upsized to a 6 Fr Short. 14:01:07 Fentanyl 50 mcg I.V. was administered by Laurel Lindo RN; for sedation; 14:01:11 Study PCI Site: [place] PDA has 90% stenosis. 14:01:24 6 Fr AR2 guide catheter was inserted over the wire 14:01:32 Whisper wire advanced. 14:01:34 Wire advanced across lesion. 14:03:49 Inflation Number: 1 A [place] OTW 2.5 x 08 stent was prepped and advanced across the R PDA. The stent was deployed at 15 [place] for 0:14 (min:sec). 14:04:40 Cordis 6Fr Exoseal opened to sterile field. 14:04:44 Wire removed. 14:04:44 Guide catheter removed. 14:05:00 Sheath removed intact; hemostasis achieved with Exoseal to the Right Femoral artery. 14:05:03 Procedure ended.(Physican Out) 14:05:13 Fluoroscopy time 03.30 minutes. 14:05:22 Flurop Dose total: 383 14:05:22 Fluoroscopy dose: 383 mGy 14:05:27 Contrast amount:Isovue 300 92ml. 14:05:28 Sharps counted by scrub and verified by R.N. 14:05:30 Insertion/operative site no bleeding no hematoma. 14:05:35 Post right femoral artery:stable 14:05:36 Post Procedure Pulses reassessed and unchanged 14:05:42 Post procedure rhythm: unchanged. 14:05:46 Estimated blood loss: 10 ml 14:05:47 Post procedure instruction explained to patient.Patient verbalizes understanding. 14:06:21 Procedure and supply charges have been captured, reviewed, submitted and are correct. 14:07:08 Procedure Complication : No complications 14:07:10 Vital chart was stopped 14:07:10 See physician's report for complete and final results. 14:07:12 Report given to Pre/Post Procedure Room. 14:07:17 Patient transfered to [facility] with Bed. 14:07:19 Procedure ended. 14:07:19 Full Disclosure recording stopped Intervention Summary Intervention Notes Time ActionType Lesion and Equipment Action# Pressure Duration Attributes Used 14:03:49 Place stent R PDA [place] OTW 1 15 00:14 2.5 x 08 stent Device Usage Item Name Manufacture Quantity Catalog Hospital Part Current Minimal Lot# / Number Charge Number Stock Stock Serial# Code Acist Acist 1 47399 450942 591558 502013 20 Syringe Medical Systems Inc Bag Microtek 1 2002S 571665 34746 183271 5 Autobutler. Medline Cardinal 1 [id number] 722062 50481 685524 5 Cath Pack Health Terumo 5Fr Terumo 1 [id number] 458933 689172 376602 [address] Matias 1 307524 965202 679221 024721 30 260cm J .035 wire Acist Hand Acist 1 34043 231770 004950 041387 5 Control Medical Systems Inc Acist Acist 1 96961 510875 680684 213049 5 Manifold Medical Systems Inc Diagnostic Cardinal 1 [id number] 383062 91511 603672 30 HelpHiveity Inventys Thermal Technologies 5Fr Multipack catheter Tegaderm 4 3M 1 1626W 343386 172919 758376 5 x 4 Cordis 5Fr Cardinal 1 774894 5 Pigtail Health Catheter (MP) Cordis 5Fr Cardinal 1 518550 5 JL 4.0 Health Catheter (MP) Cordis 5Fr Cardinal 1 531353 5 3DRC Health Catheter (MP) Diagnostic Cardinal 1 [id number] 463134 795777 054732 20 Infinity Health 5Fr AR 2 MOD catheter Merit Merit 1 JR3951 018277 694113 316614 15 BasixCompak Medical Inflation Kit Schulz Schulz 1 [id number] 351425 685264 781404 5 Whisper J Vascular 300cm 0.014 guide wire Medtronic Medtronic 1 [id number] 492292 73063 037247 1 Launcher 6Fr AR 2.0 guide catheter Terumo 6Fr Terumo 1 [id number] 897901 815378 782278 40 [place] Sheath Erasmo OTW Medtronic 1 [id number] 860006 58408 497088 5 [id number] 2.5 x 08 stent Cordis 6Fr Cardinal 1 EX600 166483 937503 290337 10 [facility] Signature Audit [place] Stage Time Signature Unsigned Intra-Procedure 05/04/2017 Alysa Servin 2:08:07 PM RT(R) Signatures Monitor : Alysa Servin Signature : RT Date : Time : [place] [id number] [place] [address]
[~2017-05-03 20:57] MED LIST changes: +NYSTATIN1 PWD TOPICAL
[2017-05-03 21:19] LABS: APPEARANCE CLEAR (CLEAR); BILIRUBIN NEGATIVE (NEGATIVE); COLOR DK YELLOW (YELLOW); GLUCOSE 50 mg/dL (NEGATIVE); KETONE NEGATIVE (NEGATIVE); NITRITE NEGATIVE (NEGATIVE); PROTEIN NEGATIVE (NEGATIVE); SPECIFIC GRAVITY 1.025 (1.005-1.020); UROBILINOGEN NORMAL (NORMAL)
[2017-05-03 21:22] LABS: BACTERIA FEW /hpf (NONE SEEN); WHITE CELLS - URINE 0-5 /hpf (0-5)
[2017-05-03 21:27] LABS: CALCIUM OXALATE CRYSTALS 25-50 /hpf (NONE SEEN)
[2017-05-03 21:54] LABS: BASOPHILS 0.5 % (0-2); EOSINOPHILS 0.8 % (0-7); HEMATOCRIT 41.8 % (36.0-48.0); HEMOGLOBIN 14.6 g/dL (12-16); IMMATURE GRANULOCYTES 0.4 % (0-5); LYMPHOCYTES 26.3 % (15-50); MCH 31.1 pg (26.0-34.0); MCHC 34.9 g/dL (31.0-37.0); MCV 89.1 fL (80.0-100.0); MEAN PLATELET VOLUME 11.1 fL (7.4-10.4); MONOCYTES 10.4 % (2-11); NEUTROPHILS 61.6 % (40-80); PLATELET COUNT 308 10x3/uL (130-400); RBC 4.69 10x6/uL (4.00-5.40); RDW 12.4 % (11.5-14.5); WBC 10.6 10x3/uL (4.8-10.8)
[2017-05-03 22:08] LABS: ALBUMIN 2.9 g/dL (3.4-5.0); ALKALINE PHOSPHATASE 121 U/L (46-116); ALT (SGPT) 17 U/L (10-68); BILIRUBIN - TOTAL 1.01 mg/dL (0.2-1.3); CALC OSMOLALITY 271 mosm/kg (275-300); CALCIUM 8.9 mg/dL (8.5-10.1); CARBON DIOXIDE 22.8 mmol/L (21.0-32.0); CHLORIDE - SERUM 101 mmol/L (98-107); CREATININE - SERUM 0.8 mg/dL (0.6-1.3); POTASSIUM - SERUM 3.5 mmol/L (3.5-5.1); PROTEIN - SERUM 7.4 g/dL (6.4-8.2); SODIUM 133 mmol/L (136-145); UREA NITROGEN 8 mg/dL (7-18); eGFR NON AFRICAN AMERICAN 76 mL/min (90-120)
[2017-05-03 22:10] LABS: GLUCOSE 249 mg/dL (74-106)
[2017-05-04] MEDS ORDERED: MECLIZINE HCL25 MG PO (02:33)
[2017-05-04 03:02] VITALS: BP 146/50; BMI 40.3
--- NOTE | 2017-05-04 03:42 | NUR ---
ARRIVED TO FLOOR VIA STRETCHER, ACCOMPANIED BY HOSPITAL STAFF. ORIENTED TO UNIT AND PLACED ON TELEMETRY. PLAN OF CARE DISCUSSED, NPO AT THIS TIME. CALL LIGHT IN REACH. WILL CONTINUE TO MONITOR. SEE NURSE ASSESSMENT.
[2017-05-04 04:44] VITALS: BP 143/54
--- NOTE | 2017-05-04 05:20 | NUR ---
NO CHANGES FROM PREVIOUS ASSESSMENT, CALL LIGHT IN REACH. WILL CONTINUE TO MONITOR.
--- NOTE | 2017-05-04 07:39 | NUR ---
ASSESSMENT DONE. PATIENT DENIES NEEDS.
--- NOTE | 2017-05-04 07:52 | NUR ---
RESTS WITH EYES CLOSED. CALL LIGHT IN REACH. WILL MONITOR NEEDS.
[2017-05-04 08:46] VITALS: BP 152/46
[2017-05-04 10:09] LABS: BASOPHILS 0.4 % (0-2); EOSINOPHILS 0.7 % (0-7); HEMATOCRIT 42.2 % (36.0-48.0); HEMOGLOBIN 14.7 g/dL (12-16); IMMATURE GRANULOCYTES 0.1 % (0-5); LYMPHOCYTES 24.7 % (15-50); MCH 31.3 pg (26.0-34.0); MCHC 34.8 g/dL (31.0-37.0); MEAN PLATELET VOLUME 11.3 fL (7.4-10.4); MONOCYTES 9.4 % (2-11); NEUTROPHILS 64.7 % (40-80); PLATELET COUNT 293 10x3/uL (130-400); RBC 4.69 10x6/uL (4.00-5.40); RDW 12.7 % (11.5-14.5); WBC 9.1 10x3/uL (4.8-10.8)
[2017-05-04 10:33] LABS: CALC OSMOLALITY 274 mosm/kg (275-300); CALCIUM 8.8 mg/dL (8.5-10.1); CARBON DIOXIDE 23.8 mmol/L (21.0-32.0); CHLORIDE - SERUM 100 mmol/L (98-107); CREATININE - SERUM 0.8 mg/dL (0.6-1.3); GLUCOSE 235 mg/dL (74-106); POTASSIUM - SERUM 3.4 mmol/L (3.5-5.1); SODIUM 134 mmol/L (136-145); UREA NITROGEN 9 mg/dL (7-18); eGFR NON AFRICAN AMERICAN 76 mL/min (90-120)
[2017-05-04 12:12] VITALS: BP 151/61
--- NOTE | 2017-05-04 13:10 | NUR ---
PATIENT OUT TO ARBORIST REPRESENTATIVE.
[2017-05-04] MEDS ORDERED: ASPIRIN325 MG PO (14:44)
[2017-05-04 15:01] VITALS: BMI 40.2
[2017-05-04 15:34] VITALS: BP 125/51
--- NOTE | 2017-05-04 16:31 | NUR ---
PATIENT BACK FROM OFFAL BALER. DRESSING CLEAN AND DRY. NO HEMATOMA NOTED.
--- NOTE | 2017-05-04 17:30 | NUR ---
PATIENT STATES NO NEEDS AT THIS TIME. NO DISTRESS NOTED.
--- NOTE | 2017-05-04 18:33 | NUR ---
GAVE RESIDENT DISCHARGE INSTRUCTIONS. VERBALIZED UNDERSTANDING.
--- NOTE | 2017-05-04 18:40 | NUR ---
INSERT OPERATOR ESCORTED TO WAITING TAXI.
--- NOTE | 2017-05-13 12:15 | OP ---
PATIENT NAME: ERNIE VILLALBA MEDICAL RECORD: [id number] :50 LOCATION:D.OPS ADMISSION DATE: SURGEON: BRAXTON WRIGHT MD DATE OF OPERATION: 05/04/2017 PROCEDURES: 1. PTCA stent RCA through patent vein graft. 2. Left heart catheterization. 3. Selective coronary angiography. 4. Left ventriculogram. 5. Vein graft angiography. 6. CURRY angiography. INDICATION: Angina and coronary artery disease. PROCEDURE IN DETAIL: After informed consent was obtained and after a detailed explanation of the risks, benefits as well as alternative therapies, the patient elected to proceed with angiogram and angioplasty. The right femoral area was prepped and draped in normal sterile fashion. The right femoral artery was cannulated via modified Seldinger technique with placement of 6-[place] sheath. All catheters exchanged through this sheath. FINDINGS: The left ventriculogram was performed in standard 30-degree [place] view, reveals good cardiac wall motion throughout all segments. Overall ejection fraction estimated at 55-60%. SELECTIVE CORONARY ANGIOGRAPHY: 1. Left main is with no significant angiographic disease. 2. Left anterior descending is totally occluded. 3. CURRY to the LAD is widely patent. 4. Left circumflex has previously placed stents in the circumflex as well as the obtuse marginal, both circumflex is widely patent. The obtuse marginal is totally occluded. This does not appear to be a fresh occlusion, appears to be a chronic total occlusion. 5. Right coronary is totally occluded. 6. Vein graft to the right coronary is patent; however, the distal right coronary has 90% stenosis. PTCA STENT OF THE RCA THROUGH THE VEIN GRAFT: The stent used is a 2.5 x 8 mm [place]. Result was 0% residual stenosis. OVERALL IMPRESSION: Successful percutaneous transluminal coronary angioplasty stent of the right coronary artery through the patent vein graft going from 90% initial stenosis to 0% residual. TRANSINT:[id number] Voice Confirmation ID: [id number] DOCUMENT ID: [id number] OPERATIVE REPORT [id number] ERNIE VILLALBA JEFFREY MD at 1215 CC: [id number] DICTATION DATE: 05/04/17 1406 FACILITIES LOCATOR: 05/04/17 1503 DEP CLI 05/04/17 [place] [address]
--- NOTE | 2017-05-13 12:16 | DS ---
PATIENT:ERNIE STEPHENS :50 MEDICAL RECORD: [id number] DISCHARGE SUMMARY ADMISSION DATE: 05/03/17 DISCHARGE DATE: 05/04/17 DISCHARGE DIAGNOSES: 1. Unstable angina. 2. Coronary artery disease. 3. Percutaneous transluminal coronary angioplasty stent, right coronary artery, this admission. HOSPITAL COURSE: Mrs. Stephens presents with anginal symptomatology, found to have significant disease of her RCA. After the vein graft, underwent successful PTCA stent of this territory. Discharged home with the addition of aspirin and Plavix to her medical regimen. She will follow up with [facility] in 1 month. TRANSINT:[id number] Voice Confirmation ID: [id number] DOCUMENT ID: [id number] BRAXTON WRIGHT MD at 1216 CC: [id number] DICTATION DATE: 05/04/17 1405 BEAN SNIPPER: 05/04/17 2213 DEP CLI 05/04/[address] [address]
== END 2017-05-04 18:43 | disposition home or self-care (01) ==
LOC: OBSVTIME → D.ER 20:57 → D.OPS 20:57 → D.ER 05-04 01:17 → OBSVTIME 05-04 01:17 → D.M2 05-04 01:17 → EDSTATUS 05-04 09:45 → D.M2 05-04 18:43 → D.OPS 05-04 18:43 → D.M2 05-04 18:43
PROVIDERS: Emergency Medicine; Internal Medicine Interventional Cardiology
DX: I25.110 Atherosclerotic heart disease of native coronary artery with unstable angina pectoris (principal); Z95.1 Presence of aortocoronary bypass graft; Z86.73 Personal history of transient ischemic attack (TIA), and cerebral infarction without residual deficits; E11.9 Type 2 diabetes mellitus without complications; I11.0 Hypertensive heart disease with heart failure; I50.9 Heart failure, unspecified; I48.91 Unspecified atrial fibrillation; J44.9 Chronic obstructive pulmonary disease, unspecified; F41.9 Anxiety disorder, unspecified; F32.9 Major depressive disorder, single episode, unspecified; E78.5 Hyperlipidemia, unspecified
CPT/HCPCS: 93459; C9600

== ENCOUNTER 2017-05-12 15:00 | Observation (INO) | payer MEDICARE ==
[~2017-05-12 15:00] MED LIST changes: +ASPIRIN325 MG PO; +MECLIZINE HCL25 MG PO
[2017-05-12 15:34] LABS: BASOPHILS 0.4 % (0-2); EOSINOPHILS 1.1 % (0-7); HEMATOCRIT 39.5 % (36.0-48.0); HEMOGLOBIN 13.7 g/dL (12-16); IMMATURE GRANULOCYTES 0.2 % (0-5); LYMPHOCYTES 21.5 % (15-50); MCH 31.3 pg (26.0-34.0); MCHC 34.7 g/dL (31.0-37.0); MCV 90.2 fL (80.0-100.0); MEAN PLATELET VOLUME 11.3 fL (7.4-10.4); MONOCYTES 9.8 % (2-11); PLATELET COUNT 302 10x3/uL (130-400); RBC 4.38 10x6/uL (4.00-5.40); RDW 12.4 % (11.5-14.5); WBC 9.7 10x3/uL (4.8-10.8)
[2017-05-12 15:47] LABS: ALBUMIN 2.7 g/dL (3.4-5.0); ALKALINE PHOSPHATASE 146 U/L (46-116); ALT (SGPT) 39 U/L (10-68); BILIRUBIN - TOTAL 0.74 mg/dL (0.2-1.3); CALC OSMOLALITY 277 mosm/kg (275-300); CALCIUM 8.7 mg/dL (8.5-10.1); CARBON DIOXIDE 28.9 mmol/L (21.0-32.0); CHLORIDE - SERUM 100 mmol/L (98-107); CREATININE - SERUM 0.8 mg/dL (0.6-1.3); PROTEIN - SERUM 6.9 g/dL (6.4-8.2); SODIUM 135 mmol/L (136-145); UREA NITROGEN 8 mg/dL (7-18); eGFR NON AFRICAN AMERICAN 76 mL/min (90-120)
[2017-05-12 15:48] LABS: GLUCOSE 286 mg/dL (74-106)
[2017-05-12 16:03] LABS: CHOL - HDL RATIO 3.9 ratio (2.3-4.1); CHOLESTEROL, TOTAL 183 mg/dL (0-200); CKMB 0.4 U/L (0.0-3.6); CREATINE KINASE 41 UL (21-215); HDL CHOLESTEROL 47 mg/dL (32-96); LDL CHOLESTEROL 120 mg/dL (0-100); LDL-HDL RATIO 2.6 ratio (1.5-3.5); TRIGLYCERIDE 81 mg/dL (30-200)
[2017-05-12 16:05] LABS: TROPONIN-I 0.146 ng/mL (0.000-0.060)
[2017-05-12 19:00] VITALS: BP 139/41
[2017-05-12] MEDS ORDERED: ATIVAN0.5 MG PO (19:27)
--- NOTE | 2017-05-12 20:34 | NUR ---
PT C/O CHEST PAIN, RATES @ 8/10 ON PAIN SCALE. NOTHING ORDERED FOR PAIN FROM THE ER. CALL TO DR WRIGHT TO REVIEW HOME MEDS AND FOR FURTHER ORDERS REGARDING PAIN MEDICINE. ALSO PT INCONT OF URINE AND RECEIVING LASIX 40 MG IV Q8H AND UNABLE TO KEEP CORRECT I/O. DR WRIGHT RETURNS CALL - MEDICATIONS REVIEWED. ORDERS RECEIVED FOR NORCO 10/325 MG 1 PO Q4H PRN PAIN. NITRO SL FOR CHEST PAIN. HOME MEDS REVIEWED AND ORDERED. AND ORDER RECEIVED FOR [facility]ER[facility] CATH. PT UPDATED ON POC. WILL MONITOR.
[2017-05-12 22:14] VITALS: BP 139/51; BMI 39.2
[2017-05-13] VITALS: BP 121/43
[2017-05-13 04:03] VITALS: BP 128/46
[2017-05-13 08:00] VITALS: BP 132/61
--- NOTE | 2017-05-13 09:56 | NUR ---
RESP UL ON 02 2L NC. TELEMETRY JUNCTIONAL HR 56. CALL LIGHT IN REACH. WILL CONT. PLAN OF CARE.
--- NOTE | 2017-05-13 13:20 | NUR ---
IV AND TELEMETRY DCD. DC PLANS GIVEN. UNDERSTANDING VOICED. ESCORTED TO CAR BY Andry
--- NOTE | 2017-05-17 12:38 | HP ---
PATIENT: ERNIE STEPHENS MEDICAL RECORD: [id number] ACCOUNT: [id number] LOCATION:[address] : 50 ADMISSION DATE: 05/12/17 HISTORY AND PHYSICAL EXAMINATION DIAGNOSES: 1. Shortness of breath, dyspnea on exertion. 2. Pulmonary edema. 3. Angina. 4. Coronary artery disease. 5. Hypertension. 6. Hyperlipidemia. HISTORY OF PRESENT ILLNESS: Mrs. Stephens is well known to us. Her last cardiac intervention was 9 days ago. She does have a totally occluded left circumflex obtuse marginal system. She began shortness of breath after a large salt load from dietary indiscretion. She then developed some chest pain. She came to the Emergency Room. Chest x-ray was compatible with pulmonary edema. She has diuresed. She now feels the respiratory status is back to normal, has had no further episodes of chest pain. Cardiac catheterization was with PTCA stent of the nome RCA through the patent vein graft. There were no other blockages that needed fixing at that time, which was 9 days ago. PHYSICAL EXAMINATION: GENERAL APPEARANCE: Well-nourished, well-developed, appears stated age. Level of distress, comfortable. PSYCHIATRIC: Mental status, alert, normal affect. Orientation, oriented to time, place and person. EYES: Lids and conjunctiva, noninjected. No discharge, no pallor. ENT: Lips, teeth, gums, normal dentition. Oropharynx, no cyanosis, no pallor. NECK: Carotid arteries, bilateral normal upstroke, no bruits, no thrills. JUGULAR VEINS: No jugular venous pressure or distention. CERVICAL LYMPH NODES: Nontender, nonenlarged. THYROID: Not enlarged. Nontender. No nodules. LUNGS: Respiratory effort, unlabored. CHEST: Normal curvature. No thoracic deformity. No chest wall tenderness. Percussion, resonant. Auscultation, clear. No wheezes, no rales, no rhonchi. CARDIOVASCULAR: Precordial exam, nondisplaced. No heaves or pericardial thrills. Rate and rhythm, regular. Heart sounds, normal S1, normal S2. No S3, no gallop, no rub. Systolic murmur, not heard. Diastolic murmur, not heard. EXTREMITIES: No cyanosis, no edema. Peripheral pulses, full and equal in all extremities, except as noted. No bruits appreciated. ABDOMEN: Soft, nondistended. Normal aorta. No bruit. Nontender. No masses. Liver, nontender, no hepatomegaly. Spleen, nontender, no splenomegaly. MUSCULOSKELETAL: No joint tenderness. No joint swelling. No erythema. NEUROLOGICAL: Normal gait, normal strength, normal tone. SKIN: Warm and dry. REVIEW OF SYSTEMS: The patient reports easy bruising but reports no swollen glands. The patient reports no fever, no night sweats, no significant weight gain, no significant weight loss. No significant exercise tolerance. The patient reports no dry eyes, no irritation, no vision change. Patient reports no difficulty hearing and no ear pain. Patient reports no frequent nose bleeds or nose and sinus problems. Patient reports on arm pain on exertion. No shortness of breath while lying down. No history of heart murmur. Patient HISTORY AND PHYSICAL [id number] ORLYKRYSTALA reports no cough, no wheezing or coughing up blood. Patient reports no abdominal pain, no vomiting. Normal appetite. No diarrhea and not vomiting blood. No nausea and no constipation. Patient reports no incontinence. No difficulty urinating. No hematuria. No increased frequency. Patient reports no muscle aches. No weakness, no arthralgias, no back pain. No swelling of the extremities. Patient reports no abnormal mole, no jaundice, no rashes. Reports no loss of consciousness. No weakness and no numbness. No seizures, dizziness, or headaches. The patient reports no depression, no sleep disturbance, feeling safe in a relationship and no alcohol abuse. Patient reports on fatigue. Reports no runny nose or sinus pressure. No itching, no hives, and no frequent sneezing. OVERALL IMPRESSION: Pulmonary edema after dietary indiscretion with large salt load leading to angina, most likely demand ischemia from the circumflex territory. She has no EKG changes. We will continue diuresis and then discharge home after diuresis. TRANSINT:[id number] Voice Confirmation ID: [id number] DOCUMENT ID: [id number] BRAXTON WRIGHT MD at 1238 CC: [id number] DICTATION DATE: 05/13/171415 RETAIL SERVICE LEAD MERCHANDISER: 05/13/171850 DIS IN 05/13/17 [facility] [address] [place] [address]
--- NOTE | 2017-05-25 16:56 | DS ---
PATIENT:ERNIE STEPHENS :50 MEDICAL RECORD: [id number] DISCHARGE SUMMARY ADMISSION DATE: 05/12/17 DISCHARGE DATE: 05/13/17 DIAGNOSES: 1. Pulmonary edema. 2. Dietary indiscretion, salt load. 3. Angina. 4. Coronary artery disease. 5. Hypertension. 6. Hyperlipidemia. HOSPITAL COURSE: Mrs. Stephens is well known to us with a past history of coronary artery disease coronary bypass graft surgery and PTCA stent. She presents with shortness of breath, found to have pulmonary edema after large salt load with demand ischemia. She received IV diureses. All symptomatology resolved, was discharged home with no change in her medications, she is already on Lasix. We will follow up with [facility] as previously scheduled in 1 month. TRANSINT:[id number] Voice Confirmation ID: [id number] DOCUMENT ID: [id number] BRAXTON WRIGHT MD at 1656 CC: [id number] DICTATION DATE: 05/13/17 1417 LOSS PREVENTION/SAFETY DISTRICT MANAGER: 05/14/17 0301 DIS IN 05/13/17 [facility] [address] [place] [address]
== END 2017-05-13 13:21 | disposition home or self-care (01) ==
LOC: D.ER 15:00 → D.M2 17:29 → OBSVTIME 17:29 → D.M2 17:29
PROVIDERS: Emergency Medicine; ADMIT Internal Medicine Interventional Cardiology
DX: I11.0 Hypertensive heart disease with heart failure (principal); Z91.11 Patient's noncompliance with dietary regimen; I25.119 Atherosclerotic heart disease of native coronary artery with unspecified angina pectoris; E78.5 Hyperlipidemia, unspecified; I24.8 Other forms of acute ischemic heart disease; I25.82 Chronic total occlusion of coronary artery; I50.9 Heart failure, unspecified; Z95.5 Presence of coronary angioplasty implant and graft; Z95.1 Presence of aortocoronary bypass graft; J81.1 Chronic pulmonary edema

== ENCOUNTER 2017-07-04 02:36 | Inpatient (IN) | payer MEDICARE ==
[~2017-07-04] VITALS: Ht 165.1 cm; Wt 104.5 kg
[~2017-07-04 02:36] MED LIST changes: +ATIVAN0.5 MG PO
[2017-07-04 03:22] LABS: BASOPHILS 0.3 % (0-2); EOSINOPHILS 1.5 % (0-7); HEMATOCRIT 39.8 % (36.0-48.0); HEMOGLOBIN 13.8 g/dL (12-16); IMMATURE GRANULOCYTES 0.2 % (0-5); LYMPHOCYTES 19.6 % (15-50); MCH 31.4 pg (26.0-34.0); MCHC 34.7 g/dL (31.0-37.0); MCV 90.7 fL (80.0-100.0); MEAN PLATELET VOLUME 11.5 fL (7.4-10.4); MONOCYTES 9.1 % (2-11); NEUTROPHILS 69.3 % (40-80); PLATELET COUNT 305 10x3/uL (130-400); RBC 4.39 10x6/uL (4.00-5.40); RDW 12.6 % (11.5-14.5); WBC 9.5 10x3/uL (4.8-10.8)
[2017-07-04 03:57] LABS: ALBUMIN 2.7 g/dL (3.4-5.0); ALKALINE PHOSPHATASE 166 U/L (46-116); ALT (SGPT) 35 U/L (10-68); BILIRUBIN - TOTAL 0.52 mg/dL (0.2-1.3); CALC OSMOLALITY 286 mosm/kg (275-300); CALCIUM 8.1 mg/dL (8.5-10.1); CHLORIDE - SERUM 101 mmol/L (98-107); CREATININE - SERUM 0.8 mg/dL (0.6-1.3); POTASSIUM - SERUM 3.8 mmol/L (3.5-5.1); PRO BNP 3918 pg/mL (0-125); PROTEIN - SERUM 6.7 g/dL (6.4-8.2); SODIUM 134 mmol/L (136-145); UREA NITROGEN 13 mg/dL (7-18); eGFR NON AFRICAN AMERICAN 76 mL/min (90-120)
[2017-07-04 03:59] LABS: GLUCOSE 432 mg/dL (74-106)
--- NOTE | 2017-07-04 06:01 | NUR ---
CALLED ER TO RECIEVE REPORT, PLACED ON HOLD FOR SEVERAL MINUTES, NO ONE PICKED UP PHONE, HUNG UP AND WILL CALL BACK LATER.
--- NOTE | 2017-07-04 06:35 | NUR ---
RECIEVED TO ROOM 2133 FROM ER. PT A&O, O2 AT 2 LITER VIA NC. IV TO LEFT HAND SL, SITE CLEAN AND DRY/ HISTORY AND MED REC COMPLETE. CLEAN BRIEF PLACED ON PT FOR CONVIENCE. NO OTHER NEEDS AT THIS TIME, BED LOW, CL IN REACH.
--- NOTE | 2017-07-04 08:00 | NUR ---
PATIENT IN BED RESTING AT THIS TIME. PATIENT IV NOTED TO BE LAYING ON BED AND BLOOD NOTED ON PATIENTS GOWN AND BED. PATIENT STATES "I JUST BUMPED IT AND IT CAME OUT" CLEANED BLOOD FROM PATIENT HAND AND ARM AND ATTEMPTED TO START ANOTHER IV. IV ATTEMPT UNSUCCESSFUL AFTER 2 ATTEMPTS. NOTIFIED CHARGE NURSE AT THIS TIME. PATIENT STATES "WE CAN TRY AGAIN AFTER I SHOWER IF THAT IS OK" ASSISTED PATIENT IN GETTING READY FOR SHOWER AND ASSISTIVE STAFF ARRIVED TO HELP PATIENT WITH SHOWER. O2 AT 2L PER NASAL CANNULA AND PATIENT IS NOT IN DISTRESS OR DISCOMFORT AT THIS TIME.
[2017-07-04 08:21] VITALS: BP 199/75
--- NOTE | 2017-07-04 09:49 | NUR ---
RN MANAGER AT BS. CALL LIGHT IN REACH. WILL CONT. PLAN OF CARE.
[2017-07-04 11:34] VITALS: BP 201/72
[2017-07-04 13:34] VITALS: BP 199/75; BMI 40.3
[2017-07-04 16:14] VITALS: BP 138/50
[2017-07-04 19:00] VITALS: BP 196/79
--- NOTE | 2017-07-04 19:25 | NUR ---
PT RESTING IN BED. 2L OF O2. PT IS AAO. DENIES ANY NEEDS. NO S/S OF DISTRESS. BED LOW AND CALL LIGHT IN REACH. WILL CPOC
--- NOTE | 2017-07-04 20:13 | NUR ---
PT A/C NOT WORKING. PUT A WORK ORDER IN. PT DENIES ANY OTHER NEEDS. NO S/S OF DISTRESS. WILL CPOC
[2017-07-05] VITALS: BP 134/36
[2017-07-05 04:00] VITALS: BP 136/65
[2017-07-05 04:54] LABS: BASOPHILS 0.1 % (0-2); EOSINOPHILS 0.3 % (0-7); HEMATOCRIT 38.6 % (36.0-48.0); HEMOGLOBIN 13.5 g/dL (12-16); IMMATURE GRANULOCYTES 0.3 % (0-5); LYMPHOCYTES 18.2 % (15-50); MEAN PLATELET VOLUME 11.2 fL (7.4-10.4); MONOCYTES 8.6 % (2-11); NEUTROPHILS 72.5 % (40-80); PLATELET COUNT 326 10x3/uL (130-400); RBC 4.35 10x6/uL (4.00-5.40); RDW 12.6 % (11.5-14.5)
[2017-07-05 05:07] LABS: MCV 88.7 fL (80.0-100.0); WBC 17.2 10x3/uL (4.8-10.8)
[2017-07-05 05:28] LABS: ALBUMIN 2.6 g/dL (3.4-5.0); ALKALINE PHOSPHATASE 138 U/L (46-116); ALT (SGPT) 28 U/L (10-68); BILIRUBIN - TOTAL 0.47 mg/dL (0.2-1.3); CALCIUM 8.8 mg/dL (8.5-10.1); CARBON DIOXIDE 30.5 mmol/L (21.0-32.0); CHLORIDE - SERUM 101 mmol/L (98-107); CREATININE - SERUM 0.7 mg/dL (0.6-1.3); POTASSIUM - SERUM 3.3 mmol/L (3.5-5.1); PROTEIN - SERUM 6.8 g/dL (6.4-8.2); SODIUM 138 mmol/L (136-145); UREA NITROGEN 15 mg/dL (7-18); eGFR NON AFRICAN AMERICAN 88 mL/min (90-120)
[2017-07-05 05:42] LABS: CALC OSMOLALITY 283 mosm/kg (275-300); GLUCOSE 219 mg/dL (74-106)
--- NOTE | 2017-07-05 06:14 | NUR ---
PT RESTING IN BED. POTASSIUM 3.3.. 40 MEQ OF K DUR GIVEN. WILL RECHECK AT 1000. PT DENIES ANY NEEDS. NO S/S OF DISTRESS. BED LOW AND CALL LIGHT IN REACH. WILL CPOC
--- NOTE | 2017-07-05 09:12 | NUR ---
ASSESSMENT DONE. DENIES NEEDS.
[2017-07-05 09:15] VITALS: BP 134/66
[2017-07-05 11:53] VITALS: BP 102/52
--- NOTE | 2017-07-05 13:39 | NUR ---
PT SITTING UP IN BED RESTING QUIETLY. PT IN A GOOD MOOD AND STATES SHE HAS HAD GREAT CARE AND DENIES ANY CURRENT PAIN OR NEEDS AT THIS TIME. CL IN REACH.
[2017-07-05 13:49] VITALS: Ht 165.1 cm; Wt 104.5 kg
[2017-07-05 16:53] VITALS: BP 140/50
--- NOTE | 2017-07-05 18:03 | NUR ---
WITHOUT CHANGES OR DISTRESS NOTED AT THIS TIME. DENIES NEEDS.
--- NOTE | 2017-07-05 19:36 | NUR ---
PT RESTING IN BED. O2 ON 2L NC. PT STATES SHE WALKED WITH PT TODAY WITH THE ASSIST OF A WALKER AND DID WELL. ONLY COMPLICATION WAS SOB. PT DENIES ANY NEEDS. NO S/S OF DISTRESS. WILL CPOC
[2017-07-05 22:42] VITALS: BP 115/56
[2017-07-06] VITALS (7 sets, daily range): BP systolic 101–177; BP diastolic 49–70
[2017-07-06 05:38] LABS: BASOPHILS 0.5 % (0-2); EOSINOPHILS 2.5 % (0-7); HEMATOCRIT 40.9 % (36.0-48.0); HEMOGLOBIN 13.9 g/dL (12-16); IMMATURE GRANULOCYTES 0.2 % (0-5); LYMPHOCYTES 32.7 % (15-50); MCH 30.9 pg (26.0-34.0); MEAN PLATELET VOLUME 11.9 fL (7.4-10.4); MONOCYTES 9.1 % (2-11); PLATELET COUNT 312 10x3/uL (130-400); RDW 12.9 % (11.5-14.5)
[2017-07-06 05:49] LABS: MCV 90.9 fL (80.0-100.0); WBC 11.8 10x3/uL (4.8-10.8)
[2017-07-06 06:00] LABS: ALBUMIN 2.7 g/dL (3.4-5.0); ANION GAP 10.7 mmol/L (8-16); BILIRUBIN - TOTAL 0.4 mg/dL (0.2-1.3); CALCIUM 9.2 mg/dL (8.5-10.1); CARBON DIOXIDE 30.2 mmol/L (21.0-32.0); POTASSIUM - SERUM 3.9 mmol/L (3.5-5.1); PROTEIN - SERUM 6.2 g/dL (6.4-8.2)
--- NOTE | 2017-07-06 07:54 | NUR ---
AM ROUNDS - PT IN BED AND AWAKE AT THIS TIME. MONITOR SHOWING SR, HR 56. PT ON 2L O2 VIA NC. IV TO LEFT FA, SL. BED AT LOWEST POSITION. CALL YODER IN USE/REACH. CALL YODER IN USE/REACH. WILL CONTINUE TO MONITOR
--- NOTE | 2017-07-06 21:12 | NUR ---
HS MEDS GIVEN WITH FRESH ICE WATER, BS 198, COVERED PER S/S. PT DENIES PAIN OR NEEDS, BED LOW, CL IN REACH.
--- NOTE | 2017-07-07 00:21 | NUR ---
MANAGER REPORTING AT BED SIDE TO OBTAIN VITALS, NO S/S DISTRESS NOTED.
[2017-07-07 01:22] VITALS: BP 128/53
--- NOTE | 2017-07-07 02:48 | NUR ---
PT RESTING COMFORTABLY, NO NEEDS AT THIS TIME. CONTINUE TO MONITOR CLOSELY.
[2017-07-07 04:54] VITALS: BP 145/58
--- NOTE | 2017-07-07 06:07 | NUR ---
IV TO LEFT WRIST IS OUT, TIP INTACT. RESITED IV TO RIGHT WRIST, 22 GAUGE, FIRST ATTEMPT. PT TOLERATED WELL. WILL CONT TO MONTIOR.
[2017-07-07 07:03] LABS: BASOPHILS 0.4 % (0-2); HEMATOCRIT 45.2 % (36.0-48.0); HEMOGLOBIN 15.5 g/dL (12-16); IMMATURE GRANULOCYTES 0.3 % (0-5); LYMPHOCYTES 35.7 % (15-50); MCH 31.3 pg (26.0-34.0); MCHC 34.3 g/dL (31.0-37.0); MCV 91.1 fL (80.0-100.0); MEAN PLATELET VOLUME 11.7 fL (7.4-10.4); MONOCYTES 8.8 % (2-11); NEUTROPHILS 51.8 % (40-80); PLATELET COUNT 325 10x3/uL (130-400); RBC 4.96 10x6/uL (4.00-5.40); RDW 13.1 % (11.5-14.5); WBC 11.2 10x3/uL (4.8-10.8)
--- NOTE | 2017-07-07 07:20 | NUR ---
RECEIVED REPORT ON PATIENT. MORNING ROUNDS MADE. PATIENT AMBULATED FROM RESTROOM TO BED WITHOUT ISSUES. DENIES ANY NEEDS AT THIS TIME. WILL CONTINUE TO MONITOR. CPOC.
[2017-07-07 07:25] LABS: ALBUMIN 2.9 g/dL (3.4-5.0); ANION GAP 11.9 mmol/L (8-16); BILIRUBIN - TOTAL 0.38 mg/dL (0.2-1.3); CALCIUM 9.2 mg/dL (8.5-10.1); CARBON DIOXIDE 32.4 mmol/L (21.0-32.0); POTASSIUM - SERUM 4.3 mmol/L (3.5-5.1); PROTEIN - SERUM 7.4 g/dL (6.4-8.2)
[2017-07-07 07:57] VITALS: BP 140/93
--- NOTE | 2017-07-07 09:39 | NUR ---
MORNING MEDS GIVEN WITHOUT ISSUES. SUPPLIES GIVEN TO PATIENT SO SHE CAN SHOWER THIS MORNING. NO OTHER NEEDS AT THIS TIME. CPOC.
[2017-07-07 11:44] VITALS: BP 128/86
--- NOTE | 2017-07-07 13:26 | NUR ---
PATIENT RESTING, DENIES ANY NEEDS. OC BED LOW AND LOCKED. CALL LIGHT IN REACH
[2017-07-07] MEDS ORDERED: LISINOPRIL10 MG PO (15:24)
[2017-07-07] MEDS ORDERED: HCTZ25 MG PO (15:25)
--- NOTE | 2017-07-07 15:35 | NUR ---
PATIENT RESTING IN BED. ADVISED ODERS HAVE BEEN PUT IN FOR HER TO GO HOME AND I WILL BRING PAPERWORK TO HER SOON IT'S READY. PT VOICED UNDERSTANDING. SHE HAS ALREADY TAKEN HER ACADEMIC INTERVENTIONIST OFF AND CHANGED IN TO HER STREET CLOTHES. DENIES ANY NEEDS AT THIS TIME. CALL LIGHT IN REACH. CPOC.
--- NOTE | 2017-07-07 17:58 | NUR ---
PATIENT SITTING IN BED. INFORMED HER I HAVE HER DC PAPERWORK. PATIENT CALLED HER DAUGHTER TO PICK HER UP. WENT OVER ALL PAPERWORK, QUESTIONS ANSWERED, AND PATIENT VOICED UNDERSTANDING. DC'D IV FROM RIGHT WRIST, CATHETER TIP INTACT, PRESSURE AND BANDAGE APPLIED TO SITE. TRANSPORTED TO VEHICLE VIA WHEELCHAIR.
--- NOTE | 2017-07-10 12:15 | CN ---
PATIENT NAME:ERNIE STEPHENS MEDICAL RECORD: [id number] : 50 LOCATION:D. D.2133 ADMIT DATE: 07/04/17 ACCOUNT: [id number] CONSULTING PHYSICIAN: BRAXTON WRIGHT MD REFERRING PHYSICIAN: JEYSON LEE MD DATE OF CONSULTATION: 07/04/2017 CARDIOLOGY CONSULTATION DATE OF SERVICE: 07/04/2017 DIAGNOSES: 1. Shortness of breath. 2. Pulmonary edema. 3. Aortic stenosis. 4. Hypertension. 5. Diabetes. 6. Previous percutaneous transluminal coronary angioplasty stent. HISTORY OF PRESENT ILLNESS: Ms. Stephens presents with shortness of breath, found to have mild pulmonary edema. Echocardiogram reveals a normal ejection fraction. She has mild aortic stenosis, mild mitral regurgitation. This would not explain the pulmonary edema. She is having no chest pain or chest discomfort. Troponin is normal. EKG is with no ST-T changes. She is status post PTCA stent approximately 2 months ago. She has had no recurrent anginal symptomatology, only shortness of breath. When she presented, her systolic blood pressure was over 200. She is on metoprolol 50 b.i.d. as well as lisinopril 10 mg every day for the blood pressure. She is on Lasix 20 mg a day at home as well. Her breathing is much improved after diuresis today. PHYSICAL EXAMINATION: GENERAL APPEARANCE: Well-nourished, well-developed, appears stated age. Level of distress, comfortable. PSYCHIATRIC: Mental status, alert, normal affect. Orientation, oriented to time, place and person. EYES: Lids and conjunctiva, noninjected. No discharge, no pallor. ENT: Lips, teeth, gums, normal dentition. Oropharynx, no cyanosis, no pallor. NECK: Carotid arteries, bilateral normal upstroke, no bruits, no thrills. JUGULAR VEINS: No jugular venous pressure or distention. CERVICAL LYMPH NODES: Nontender, nonenlarged. THYROID: Not enlarged. Nontender. No nodules. LUNGS: Respiratory effort, unlabored. CHEST: Normal curvature. No thoracic deformity. No chest wall tenderness. Percussion, resonant. Auscultation, clear. No wheezes, no rales, no rhonchi. CARDIOVASCULAR: Precordial exam, nondisplaced. No heaves or pericardial thrills. Rate and rhythm, regular. Heart sounds, normal S1, normal S2. No S3, no gallop, no rub. Systolic murmur, not heard. Diastolic murmur, not heard. EXTREMITIES: No cyanosis, no edema. Peripheral pulses, full and equal in all extremities, except as noted. No bruits appreciated. ABDOMEN: Soft, nondistended. Normal aorta. No bruit. Nontender. No masses. Liver, nontender, no hepatomegaly. Spleen, nontender, no splenomegaly. MUSCULOSKELETAL: No joint tenderness. No joint swelling. No erythema. NEUROLOGICAL: Normal gait, normal strength, normal tone. SKIN: Warm and dry. CONSULT REPORT [id number] ERNIE STEPHENS OVERALL IMPRESSION: Shortness of breath, pulmonary edema. This is not really heart failure per se, as she has a normal ejection fraction. She has mild valvular heart disease. Certainly, it could be secondary to the hypertension in conjunction with the valvular heart disease. We will discontinue her 10 mg a day lisinopril, put her on lisinopril and hydrochlorothiazide 20/25 b.i.d. Continue the metoprolol b.i.d. Hopefully, this will lower the blood pressure, give her afterload reduction, clear the pulmonary edema and this will not recur. At this time, no other cardiac workup or treatment is necessary. TRANSINT:[id number] Voice Confirmation ID: [id number] DOCUMENT ID: [id number] BRAXTON WRIGHT MD at 1215 CC: [id number] DICTATION DATE: 07/04/17 164 PREPAROLE COUNSELING AIDE: 07/04/17 1727 DIS IN 07/07/17 [id number] [place] [address]
--- NOTE | 2017-07-10 12:15 | EC ---
PATIENT:ERNIE VILLALBA DATE OF SERVICE: 07/04/17 SEX: F MEDICAL RECORD: [id number] DATE OF : 50 LOCATION:D.M2 D.213 AGE OF PATIENT: 67 ADMISSION DATE: 07/04/17 REFERRING PHYSICIAN: INTERPRETING PHYSICIAN: BRAXTON GALVAN MD ECHOCARDIOGRAM REPORT ECHO CHARGES 4 ECHO COMPLETE CLINICAL DIAGNOSIS: SOB ECHOCARDIOGRAPHIC MEASUREMENTS (adult normal given) AC root (d.<3.7cm) 2.8 cm LV Septum d (<1.2 cm> 1.2 cm Valve Excursion 1.0 cm LV Septum (systole) 1.8 cm Left Atria (s.<4.0cm> 3.9 cm LVPW d(<1.2cm) 1.2 cm RV (d.<2.3cm) 2.3 cm LVPW (sytole) 1.9 cm LV diastole(<5.6CM) 5.4 cm MV E-F(>70mm/sec) cm LV systole 3.0 cm LVOT Diameter 1.6 cm MV exc.(>10mm) cm Est.ejection fraction (50-75%) % Pericardial Effusion N DOPPLER: LVIT cm/sec A 170 cm/sec E 153 cm/sec LA cm/sec RVSP 46.0 mmHg LVOT 122 cm/sec AOP1/2T 408.0m/s Asc. Ao 267 cm/sec RVOT 52.0 cm/sec RA cm/sec PA 117 cm/sec AV Gradient Peak 29.0 mmHg AV Mean 14.2 mmHg AV Area 0.8 cm MV Gradient Peak 13.0 mmHg MV Mean 4.3 mmHg MV Area cm COMMENTS: Motor Vehicle Examiner: 1 MICHAEL REAOE Head Of Merchandise Buying: 1 Dr. Galvan TAPE# PACS DATE OF SERVICE: 07/04/2017 FINDINGS: 1. Left ventricular chamber size is within normal limits. Left ventricular systolic function is normal. Overall ejection fraction estimated at 60%. 2. Left atrium, right atrium, and right ventricle chamber sizes are within normal limits. 3. Valvular structures: Aortic valve demonstrates [id number] calcific aortic stenosis. Valve area calculates to 0.8 cm-squared. There is a gradient of 29 mm across the valve. The remaining valvular structures have normal ECHOCARDIOGRAM REPORT [id number] ERNIE VILLALBA structure and motion. 4. Doppler interrogation elsewise reveals mild aortic insufficiency, mild mitral regurgitation, trace tricuspid regurgitation. No other valvular insufficiency or stenosis. 5. No evidence of pericardial effusion or left ventricular thrombus. TRANSINT:[id number] Voice Confirmation ID: [id number] DOCUMENT ID: [id number] BRAXTON GALVAN MD at 1215 CC: [id number] DICTATION DATE: 07/04/17 1107 LICENSED MASSAGE PRACTITIONER: 07/04/17 1246 DIS IN 07/07/17 [id number] [place] [id number]
--- NOTE | 2017-08-10 12:26 | DS ---
PATIENT:ERNIE VILLALBA :50 MEDICAL RECORD: [id number] DISCHARGE SUMMARY ADMISSION DATE: 07/04/17 DISCHARGE DATE: 07/07/17 DATE OF ADMISSION: 07/04/2017 DATE OF DISCHARGE: 07/07/2017 DIAGNOSES: 1. Pulmonary edema. 2. Aortic stenosis. 3. Hypertension. 4. Diabetes. 5. Coronary artery disease. CONSULTS: Moisés Galvan MD IMAGING: Echo, EF of 60% with [id number] calcified aortic stenosis with valve area of 0.8 cm-squared, gradient of 28. She had some aortic insufficiency as well. HOSPITAL COURSE: The patient admitted with shortness of breath and mild pulmonary edema. Her echo findings as above. Cardiology was consulted as her blood pressure was quite labile on admission with a systolic greater than 200. She was given IV diuretics and her symptomatology improved greatly. Her medications were adjusted with adding lisinopril and hydrochlorothiazide to optimize blood pressure control and afterload reduction. Her condition stabilized. She was thought to be stable to discharge home to follow up in the outpatient setting. See med rec. TRANSINT:[id number] Voice Confirmation ID: [id number] DOCUMENT ID: [id number] Dictated By: TRINIDAD ESCOTO I have interviewed/examined the above patient and agree with these documented findings. JEYSON LEE MD at 1226 at 1433 CC: [id number] DICTATION DATE: 08/01/17 1730 VENEER TAPING MACHINE OFFBEARER: 08/02/17 1037 DIS IN 07/07/17 [id number] [place] [address]
== END 2017-07-07 18:55 | disposition home or self-care (01) | DRG 306 ==
LOC: D.ER 02:36 → D.M2 05:30
PROVIDERS: Emergency Medicine; ADMIT Family Medicine
DX: I08.0 Rheumatic disorders of both mitral and aortic valves (principal); I50.21 Acute systolic (congestive) heart failure; I11.0 Hypertensive heart disease with heart failure; R42 Dizziness and giddiness; E11.65 Type 2 diabetes mellitus with hyperglycemia; I48.2 Chronic atrial fibrillation; J44.9 Chronic obstructive pulmonary disease, unspecified; R00.1 Bradycardia, unspecified; Z86.73 Personal history of transient ischemic attack (TIA), and cerebral infarction without residual deficits

== ENCOUNTER 2017-07-09 17:41 | Inpatient (IN) | payer MEDICARE ==
[~2017-07-09] VITALS: Ht 165.1 cm; Wt 104.3 kg
[~2017-07-09 17:41] MED LIST changes: +HCTZ25 MG PO
[2017-07-09 18:19] LABS: BASOPHILS 0.3 % (0-2); HEMATOCRIT 46.3 % (36.0-48.0); HEMOGLOBIN 15.9 g/dL (12-16); IMMATURE GRANULOCYTES 0.8 % (0-5); LYMPHOCYTES 20.1 % (15-50); MCH 31.4 pg (26.0-34.0); MCHC 34.3 g/dL (31.0-37.0); MCV 91.5 fL (80.0-100.0); MEAN PLATELET VOLUME 12.3 fL (7.4-10.4); MONOCYTES 5.9 % (2-11); NEUTROPHILS 70.9 % (40-80); PLATELET COUNT 307 10x3/uL (130-400); RBC 5.06 10x6/uL (4.00-5.40); RDW 12.8 % (11.5-14.5); WBC 15.4 10x3/uL (4.8-10.8)
[2017-07-09 18:40] LABS: ALBUMIN 3.2 g/dL (3.4-5.0); ANION GAP 10.1 mmol/L (8-16); BILIRUBIN - TOTAL 0.65 mg/dL (0.2-1.3); CALCIUM 9.1 mg/dL (8.5-10.1); CARBON DIOXIDE 31.4 mmol/L (21.0-32.0); CREATININE - SERUM 1.4 mg/dL (0.6-1.3); POTASSIUM - SERUM 4.5 mmol/L (3.5-5.1); PROTEIN - SERUM 7.7 g/dL (6.4-8.2)
[2017-07-09 19:28] LABS: AMYLASE - SERUM 154 U/L (25-115); CKMB 0.8 U/L (0.0-3.6); CREATINE KINASE 86 UL (21-215); LIPASE 167 U/L (73-393); MAGNESIUM - SERUM 1.9 mg/dL (1.8-2.4); PRO BNP 1226 pg/mL (0-125); TROPONIN-I 0.021 ng/mL (0.000-0.060)
[2017-07-09 21:31] LABS: APPEARANCE CLEAR (CLEAR); BILIRUBIN NEGATIVE (NEGATIVE); COLOR YELLOW (YELLOW); GLUCOSE NEGATIVE (NEGATIVE); KETONE NEGATIVE (NEGATIVE); NITRITE NEGATIVE (NEGATIVE); PROTEIN NEGATIVE (NEGATIVE); SPECIFIC GRAVITY 1.015 (1.005-1.020); UROBILINOGEN NORMAL (NORMAL)
[2017-07-09 21:58] LABS: UDS - AMPHET NEGATIVE QUAL (NEGATIVE); UDS - BARB NEGATIVE QUAL (NEGATIVE); UDS - BENZO POSITIVE QUAL (NEGATIVE); UDS - COCAINE NEGATIVE QUAL (NEGATIVE); UDS - OPIATE POSITIVE QUAL (NEGATIVE); UDS - PCP NEGATIVE QUAL (NEGATIVE); UDS - THC NEGATIVE QUAL (NEGATIVE)
--- NOTE | 2017-07-09 22:02 | NUR ---
RECIEVED PT TO FLOOR FROM ED VIA STRETCHER. PT TRANSFERED SELF TO BED. ALERT AND ORIENTED AND ABLE TO VERBALIZE NEEDS. IV IS PATENT AND SALINE LOC. VSS. PT IS AMBULATORY WITH ASSISTANCE BUT A BED ALARM IS PLACED ON DUE TO PT STATING SHE HAS FALLEN AT HOME RECENTLY. PT STATES PAIN IS 5/10. PT IS ORIENTED TO ROOM AND USE OF CALL LIGHT. NO NEEDS ARE VERBALIZED AT THIS TIME. WILL CONTINUE TO MONITOR. SIDE RAILS ARE UP X 2. BED IS IN LOWEST POSITION. BED ALARM ON FOR SAFETY. CALL LIGHT IS WITHIN REACH.
--- NOTE | 2017-07-09 22:47 | NUR ---
ADMIT ASSESSMENT COMPLETED. PT RECIEVED 4 UNITS INSULIN PER SLIDING SCALE FOR AWUU=983. NO NEEDS ARE VOICED. WILL MONITOR. SIDE RAILS X 2. BED LOW. BED ALARM ON. CALL LIGHT IN REACH.
[2017-07-09 23:08] VITALS: BP 141/51; BMI 38.3
[2017-07-10] MEDS ORDERED: PRINIVIL10 MG PO (01:40)
[2017-07-10 04:00] VITALS: BP 130/49
--- NOTE | 2017-07-10 07:29 | NUR ---
REPORT RECEIVED FROM PERISHABLE FRUIT INSPECTOR NURSE. CALL LIGHT IN REACH.
[2017-07-10 09:00] VITALS: BP 139/46
--- NOTE | 2017-07-10 09:50 | NUR ---
ASSESSMENT COMPLETED. CALL LIGHT IN REACH. WILL CONTINUE WITH PLAN OF CARE.
[2017-07-10 09:54] LABS: BASOPHILS 0.3 % (0-2); EOSINOPHILS 1.5 % (0-7); HEMATOCRIT 39.9 % (36.0-48.0); HEMOGLOBIN 13.3 g/dL (12-16); IMMATURE GRANULOCYTES 0.2 % (0-5); LYMPHOCYTES 29.8 % (15-50); MCH 30.8 pg (26.0-34.0); MCHC 33.3 g/dL (31.0-37.0); MCV 92.4 fL (80.0-100.0); MEAN PLATELET VOLUME 12.2 fL (7.4-10.4); NEUTROPHILS 60.2 % (40-80); PLATELET COUNT 296 10x3/uL (130-400); RBC 4.32 10x6/uL (4.00-5.40); WBC 13.3 10x3/uL (4.8-10.8)
[2017-07-10 10:01] LABS: ALBUMIN 2.6 g/dL (3.4-5.0); ANION GAP 11.4 mmol/L (8-16); BILIRUBIN - TOTAL 0.45 mg/dL (0.2-1.3); CALCIUM 8.5 mg/dL (8.5-10.1); CARBON DIOXIDE 28.6 mmol/L (21.0-32.0); CREATININE - SERUM 1.2 mg/dL (0.6-1.3); PROTEIN - SERUM 6.5 g/dL (6.4-8.2)
--- NOTE | 2017-07-10 11:45 | NUR ---
GLUCOSE WAS 433 PER LAB DRAW. 12 UNITS INSULIN SUBQ. CALL LIGHT IN REACH.
[2017-07-10 12:25] VITALS: BP 122/43
--- NOTE | 2017-07-10 13:00 | NUR ---
NO NEEDS VOICED AT THIS TIME. CALL LIGHT IN REACH.
[2017-07-10 13:27] VITALS: Ht 165.1 cm; Wt 104.3 kg
--- NOTE | 2017-07-10 14:43 | NUR ---
Rehab Note- Acute Rehab Prescreen order received. Visited with the patient, she was in [facility] in January and stated she did very well but doesn't believe that she needs acute rehab at this time, states she feels as though she is at her baseline and that her increased BP & increased BS were the cause of her dizziness resulting in a fall prior to her acute hospital admit. Informed SUMANTH Zavala. Will follow the patient at this time. Thank you for this referral! Eileen Farias RN Clinical Liaison, [facility] Re[facility]
--- NOTE | 2017-07-10 14:56 | NUR ---
MEDS ADMINISTERED PER ORDER. CALL LIGHT IN REACH.
--- NOTE | 2017-07-10 15:50 | NUR ---
DENIES NEEDS. CALL LIGHT IN REACH.
[2017-07-10 16:15] VITALS: BP 148/48
--- NOTE | 2017-07-10 17:13 | NUR ---
6 UNITS REGULAR INSULIN FOR SUGAR OF 275. CALL LIGHT IN REACH.
--- NOTE | 2017-07-10 18:15 | NUR ---
SCDs TO BLE. NO CHANGES IN INITIAL ASSESSMENT. CALL LIGHT IN REACH. WILL CONTINUE WITH PLAN OF CARE.
[2017-07-10 20:00] VITALS: BP 169/53
--- NOTE | 2017-07-10 20:00 | NUR ---
ASSESSMENT PER FLOWSHEET. IV PATENT RT HAND SALINE LOCK. SITE CLEAR. TELM SHOWS SR. SR UP X2 CALL LIGHT WITHIN REACH.
--- NOTE | 2017-07-10 21:15 | NUR ---
MEDS GIVEN PER SEP. SURP=083. 6 UNITS REGULAR INSULIN GIVEN SUBC PER S/S.
--- NOTE | 2017-07-10 23:30 | NUR ---
EYES CLOSED RESPIRATIONS WITH EASE AND UNLABORED.
--- NOTE | 2017-07-11 02:59 | NUR ---
EYES CLOSED RESPIRATIONS WITH EASE AND UNLABORED. DENIES NEEDS.
[2017-07-11 06:13] LABS: BASOPHILS 0.4 % (0-2); EOSINOPHILS 2.6 % (0-7); HEMATOCRIT 42.4 % (36.0-48.0); HEMOGLOBIN 14.5 g/dL (12-16); IMMATURE GRANULOCYTES 0.5 % (0-5); LYMPHOCYTES 38.9 % (15-50); MCH 31.3 pg (26.0-34.0); MCHC 34.2 g/dL (31.0-37.0); MCV 91.4 fL (80.0-100.0); MEAN PLATELET VOLUME 12.2 fL (7.4-10.4); MONOCYTES 10.5 % (2-11); NEUTROPHILS 47.1 % (40-80); PLATELET COUNT 268 10x3/uL (130-400); RBC 4.64 10x6/uL (4.00-5.40); RDW 12.7 % (11.5-14.5); WBC 10.4 10x3/uL (4.8-10.8)
[2017-07-11 06:31] LABS: ALBUMIN 2.7 g/dL (3.4-5.0); ANION GAP 9.6 mmol/L (8-16); BILIRUBIN - TOTAL 0.48 mg/dL (0.2-1.3); CALCIUM 8.8 mg/dL (8.5-10.1); CARBON DIOXIDE 30.4 mmol/L (21.0-32.0); CREATININE - SERUM 0.9 mg/dL (0.6-1.3); PROTEIN - SERUM 6.9 g/dL (6.4-8.2)
--- NOTE | 2017-07-11 06:56 | NUR ---
RESTING QUIETLY NO CHANGGES IN ASESSMENT
--- NOTE | 2017-07-11 07:15 | NUR ---
REPORT RECEIVED FROM MANAGER ED NURSE. CALL LIGHT IN REACH.
[2017-07-11 08:10] VITALS: BP 161/77
--- NOTE | 2017-07-11 09:46 | NUR ---
ASSESSMENT COMPLETED. AM MEDS ADMINISTERED. REFUSES SCDs. CALL LIGHT IN REACH. WILL CONTINUE WITH PLAN OF CARE.
--- NOTE | 2017-07-11 11:05 | NUR ---
FLOYD HAHN, IN ROOM TO SEE PATIENT.
--- NOTE | 2017-07-11 12:36 | NUR ---
IV DC'D WITH TIP INTACT.
--- NOTE | 2017-07-11 12:55 | NUR ---
DC INSTRUCTIONS EXPLAINED TO PATIENT. VERBALIZED UNDERSTANDING.
--- NOTE | 2017-07-11 14:24 | NUR ---
OT NOTE: PT CONT TO DO WELL. REPORTS THAT SHE IS GOING HOME TODAY; ABLE TO PERFORM BED MOB WITH SPV/I; TRANSFERS WITH SBA. CRISTINO TAPIA, OTR/L
--- NOTE | 2017-07-11 14:42 | NUR ---
STILL WAITING ON RIDE HOME.
--- NOTE | 2017-07-11 15:08 | NUR ---
DC'D TO VEHICLE VIA WC WITH FAMILY.
== END 2017-07-11 15:08 | disposition home or self-care (01) | DRG 947 ==
LOC: D.ER 17:41 → D.MS 20:43
PROVIDERS: Family Medicine; ADMIT Family Medicine
DX: R53.1 Weakness (principal); R53.2 Functional quadriplegia; E86.0 Dehydration; R11.2 Nausea with vomiting, unspecified; I25.10 Atherosclerotic heart disease of native coronary artery without angina pectoris; I11.0 Hypertensive heart disease with heart failure; I50.9 Heart failure, unspecified; E11.65 Type 2 diabetes mellitus with hyperglycemia; Z79.4 Long term (current) use of insulin; I48.91 Unspecified atrial fibrillation; Z95.1 Presence of aortocoronary bypass graft; F32.9 Major depressive disorder, single episode, unspecified; F41.9 Anxiety disorder, unspecified

== ENCOUNTER 2017-08-13 19:07 | Observation (INO) | payer MEDICARE ==
[~2017-08-13] VITALS: Ht 165.1 cm; Wt 100.2 kg
--- NOTE | ~2017-08-13 | HP ---
PATIENT: ERNIE STEPHENS MEDICAL RECORD: [id number] ACCOUNT: [id number] LOCATION:. D.2117 : 50 ADMISSION DATE: 08/13/17 HISTORY AND PHYSICAL EXAMINATION DIAGNOSES: 1. Unstable angina. 2. Coronary artery disease. 3. Previous coronary artery bypass graft surgery. 4. Previous multivessel percutaneous transluminal coronary angioplasty stent. 5. Chronic obstructive pulmonary disease. 6. Smoking history. 7. Hypertension. 8. Insulin-dependent diabetes. HISTORY OF PRESENT ILLNESS: Mrs. Stephens presents with increasing anginal symptomatology over the past few days, just like that of her previous angina. Last cardiac intervention was 05/04/2017. PHYSICAL EXAMINATION: GENERAL APPEARANCE: Well-nourished, well-developed, appears stated age. Level of distress, comfortable. PSYCHIATRIC: Mental status, alert, normal affect. Orientation, oriented to time, place and person. EYES: Lids and conjunctiva, noninjected. No discharge, no pallor. ENT: Lips, teeth, gums, normal dentition. Oropharynx, no cyanosis, no pallor. NECK: Carotid arteries, bilateral normal upstroke, no bruits, no thrills. JUGULAR VEINS: No jugular venous pressure or distention. CERVICAL LYMPH NODES: Nontender, nonenlarged. THYROID: Not enlarged. Nontender. No nodules. LUNGS: Respiratory effort, unlabored. CHEST: Normal curvature. No thoracic deformity. No chest wall tenderness. Percussion, resonant. Auscultation, clear. No wheezes, no rales, no rhonchi. CARDIOVASCULAR: Precordial exam, nondisplaced. No heaves or pericardial thrills. Rate and rhythm, regular. Heart sounds, normal S1, normal S2. No S3, no gallop, no rub. Systolic murmur, not heard. Diastolic murmur, not heard. EXTREMITIES: No cyanosis, no edema. Peripheral pulses, full and equal in all extremities, except as noted. No bruits appreciated. ABDOMEN: Soft, nondistended. Normal aorta. No bruit. Nontender. No masses. Liver, nontender, no hepatomegaly. Spleen, nontender, no splenomegaly. MUSCULOSKELETAL: No joint tenderness. No joint swelling. No erythema. NEUROLOGICAL: Normal gait, normal strength, normal tone. SKIN: Warm and dry. REVIEW OF SYSTEMS: The patient reports easy bruising but reports no swollen glands. The patient reports no fever, no night sweats, no significant weight gain, no significant weight loss. No significant exercise tolerance. The patient reports no dry eyes, no irritation, no vision change. Patient reports no difficulty hearing and no ear pain. Patient reports no frequent nose bleeds or nose and sinus problems. Patient reports on arm pain on exertion. No shortness of breath while lying down. No history of heart murmur. Patient reports no cough, no wheezing or coughing up blood. Patient reports no abdominal pain, no vomiting. Normal appetite. No diarrhea and not vomiting blood. No nausea and no constipation. Patient reports no incontinence. No difficulty urinating. No hematuria. No increased frequency. Patient reports HISTORY AND PHYSICAL [id number] ORLY,ERNIE no muscle aches. No weakness, no arthralgias, no back pain. No swelling of the extremities. Patient reports no abnormal mole, no jaundice, no rashes. Reports no loss of consciousness. No weakness and no numbness. No seizures, dizziness, or headaches. The patient reports no depression, no sleep disturbance, feeling safe in a relationship and no alcohol abuse. Patient reports on fatigue. Reports no runny nose or sinus pressure. No itching, no hives, and no frequent sneezing. OVERALL IMPRESSION: Unstable anginal symptomatology, most likely she has recurrent hemodynamically significant coronary artery disease. We will proceed with coronary angiography. Further care depends upon the findings of the angiography. TRANSINT:[id number] Voice Confirmation ID: [id number] DOCUMENT ID: [id number] BRAXTON WRIGHT MD at 1154 CC: [id number] DICTATION DATE: 08/14/17928 VEHICLE UPHOLSTERER: 08/14/17 1037 ADM IN [id number] [place] [address]
--- NOTE | ~2017-08-13 | OP ---
PATIENT NAME: ERNIE VILLALBA MEDICAL RECORD: [id number] :50 LOCATION:D.M2 D.2117 ADMISSION DATE:08/13/17 SURGEON: BRAXTON WRIGHT MD DATE OF OPERATION: 08/14/2017 DATE OF SERVICE: 08/14/2017 PROCEDURES: 1. PTCA stent RCA through vein graft. 2. PTCA left circumflex. 3. Left heart catheterization. 4. Selective coronary angiography. 5. Left ventriculogram. 6. Vein graft angiography. 7. CURRY angiography. INDICATION: Angina and coronary artery disease. PROCEDURE IN DETAIL: After informed consent was obtained and after detailed explanation of risks, benefits as well as alternative therapies, the patient elected to proceed with angiogram and angioplasty. The right femoral area was prepped and draped in normal sterile fashion. The right femoral artery was cannulated via modified Seldinger technique with placement of 6-Vietnamese sheath. All catheters exchanged through this sheath. FINDINGS: Left ventriculogram was performed in standard 30-degree [place] view, reveals good cardiac wall motion, ejection fraction 55% to 60%. SELECTIVE CORONARY ANGIOGRAPHY: 1. Left main is with no significant angiographic disease. 2. Left anterior descending is totally occluded in mid vessel. 3. CURRY to the LAD is widely patent. 4. Left circumflex has previously placed stents, these were totally occluded in the mid vessel; however, the distal circumflex now has a 90% stenosis after the previously placed stents. 5. The right coronary is totally occluded. 6. Vein graft to the right coronary is widely patent. Previously placed stents in the right coronary are patent; however, there is 70% stenosis after the PDA stent. PTCA of the left circumflex: This is a very small distal vessel, but we were able to get through the stents with a Fielder wire and a 15 Eup[place] balloon taken to 17 atmospheres. Result was 20% residual stenosis with marked improvement in distal flow. We turned our attention then to the right coronary after the vein graft and stented this with a 2.5 x 12 mm [place] stent. Result was 0% residual stenosis. OVERALL IMPRESSION: Successful percutaneous transluminal coronary angioplasty stent of the right coronary artery through the patent vein graft going from 70% initial stenosis to 0% residual. TRANSINT:[id number] Voice Confirmation ID: [id number] DOCUMENT ID: [id number] OPERATIVE REPORT [id number] ERNIE VILLALBA JEFFREY MD at 1324 CC: [id number] DICTATION DATE: 08/14/17 1153 DINING ROOM HELPER: 08/14/17 1246 DIS IN 08/14/17 [facility] [address] [place] [address]
--- NOTE | ~2017-08-13 | HEMODYNAMI ---
PATIENT:ERNIE VILLALBA MEDICAL RECORD: [id number] : 50 [address] [id number] ADMISSION DATE: 08/13/17 Generatedon:08/14/201711:55 Patient name: ERNIE VILLALBA Patient #: [id number] : 1950 Date of study: 08/14/2017 Page: Of Hemodynamic Procedure Report Patient Data Patient Demographics Procedure consent was obtained First Name: ERNIE Gender: Female Last Name: ORLY : 1950 Patient #: [id number] Age: 67 year(s) Race: SSN: [id number] Additional ID: [id number] Contact details [address]: [address] [place] [address] [address] State: [place] City: [place] Zip code: [address] Past Medical History Allergies: No allergy information Admission Admission Data Admission Date: 08/13/2017 Admission Time: 21:50 Room #: [facility] Lab Results Lab Result Date: 08/14/2017 Lab Result Time: 0:00 Biochemistry Name Units Result Min Max BUN mg/dl 16 --(---*)-- 7 18 Creatinine mg/dl 1 --(--*-)-- 0.6 1.3 CBC Name Units Result Min Max Hemoglobin g/dl 13.7 --(*---)-- 13.5 17.5 Procedure Procedure Types Cath Procedure Diagnostic Procedure LHC LHC w/Coronaries w/Grafts PCI Procedure Coronary Stent Coronary Stent Initial PTCA PTCA Initial Miscellaneous Procedures Moderate Sedation up to 30 minutes Procedure Description Procedure Date Procedure Date: 08/14/2017 Procedure Start Time: 11:28 Procedure End Time: 11:50 Procedure Staff Name Function Moisés Galvan MD Performing Physician Briseida Oneal RT Monitor José Manuel Mixon RT Scrub Laurel Lindo RN Nurse Procedure Data Cath Procedure Fluoroscopy Diagnostic fluoroscopy Total fluoroscopy Time: 5.6 time: 5.6 min min Diagnostic fluoroscopy Total fluoroscopy dose: 793 dose: 793 mGy mGy Contrast Material Contrast Material Type Amount (ml) Isovue 300 112 Entry Location Entry Primary Successful Side Size Upsize Upsize Entry Closure Succes sful Closure Location (Fr) 1 (Fr) 2 (Fr) Remarks Device Remarks Femoral Right 5 Fr 6 Fr Exoseal artery Short Estimated blood loss: 5 ml Diagnostic catheters Device Type Used For End Catheter Placement MULTIPACK Pigtail 5 Fr LV Angiography catheter MULTIPACK JL 4.0 5Fr Left Coronary catheter Angiography MULTIPACK 3DRC 5Fr Multi-vessel catheter Angiography DIAGNOSTIC AR 1 MOD 5Fr Right Coronary catheter ([id number]) Angiography Procedure Complications No complications Procedure Medications Medication Administration Route Dosage Oxygen NC 2 l/min Lidocaine 2% added to field 20 Heparin Flush Bag added to field 2 bags (1000units/500ml NS) 0.9% NaCl I.V. 100 ml/hr Versed I.V. 1 mg Fentanyl I.V. 50 mcg Versed I.V. 1 mg Fentanyl I.V. 50 mcg Heparin Bolus I.V. 4000 units Hemodynamics Rest HGB: 13.7 (g/dl) Heart Rate: 63 (bpm) Pressure Samples Time Site Value (mmHg) Purpose Heart Use Rate(bpm) 11:30 LV 79/3,3 Snapshot 65 Snapshots Pre Cath Intra NCS Post Cath Vital Signs Time Heart Resp SPO2 etCO2 NIBP (mmHg) Rhythm Pain Sedation Rate (ipm) (%) (mmHg) Status Level (bpm) 11:18:10 65 16 96 0 132/69(112) NSR 0 (11) 10(A) , No pain 11:22:30 65 17 95 0 132/75(113) NSR 0 (11) 10(A) , No pain 11:26:58 67 15 95 6.1 121/59(96) NSR 0 (11) 10(A) , No pain 11:31:25 66 16 98 22.1 129/68(108) NSR 0 (11) 9(A) , No pain 11:35:51 67 15 97 26 136/72(111) NSR 0 (11) 9(A) , No pain 11:40:15 69 15 97 15.2 120/57(85) NSR 0 (11) 9(A) , No pain 11:44:41 72 16 98 18.3 124/65(102) NSR 0 (11) 9(A) , No pain 11:49:06 71 15 99 26.7 139/77(112) NSR 0 (11) 10(A) , No pain Medications Time Medication Route Dose Verified Delivered Reason Notes Effectiveness by by 11:24:20 Oxygen NC 2 Moiéss Buffie used for l/min Cole Lindo RN procedure 11:24:27 Lidocaine 2% added 20ml Moisés Moisés for local to vial Cole Galvan MD anesthetic field 11:24:34 Heparin Flush added 2 Moisés Moisés used for Bag to bags Cole Galvan MD procedure (1000units/500ml field NS) 11:24:42 0.9% NaCl I.V. 100 Moisés Buffie Per physician ml/hr Cole Lindo RN 11:28:32 Versed I.V. 1 mg Moisésyuli Shineie for sedation Cole Lindo RN 11:28:38 Fentanyl I.V. 50 Moisés Buffie for sedation mcg Cole Lindo RN 11:32:06 Versed I.V. 1 mg Moisésyuli Shineie for sedation Cole Lindo RN 11:32:10 Fentanyl I.V. 50 Moisés Barragan for sedation mcg Cole Lindo RN 11:37:33 Heparin Bolus I.V. 4000 Moisésyuli Shineie for verifi ed units Cole Lindo RN anticoagulation with dr galvan Procedure Log Time Note 10:55:10 Informed consent obtained and on chart 10:55:33 Laurel Lindo RN sent for patient. Start room use. 10:55:38 Diagnostic Cath Status : Elective 10:56:41 Time tracking: Regular hours 10:56:46 Plan of Care:Hemodynamics will remain stable., Cardiac rhythm will remain stable., Comfort level will be maintained., Respiratory function will remain adequate., Patient/ family verbilizes understanding of procedure., Procedure tolerated without complication., Recovers from procedure without complications.. 11:04:56 Patient received from Med II to CCL 2 Alert and oriented. Tansferred to table in Supine position. 11:04:57 Warm blankets applied, and aminata hugger turned on for patient comfort. 11:04:58 Correct patient and procedure confirmed by team. 11:04:58 ECG and BP/O2 sat monitors applied to patient. 11:16:37 Vital chart was started 11:16:49 Baseline sample Acquired. 11:16:55 Rhythm: sinus rhythm 11:16:56 Full Disclosure recording started 11:17:01 H&P Date Dictated: 08/14/2017 New H&P dictated by physician.. 11:17:03 Pre-procedure instructions explained to patient. 11:17:03 Pre-op teaching completed and patient verbalized understanding. 11:17:05 Family in waiting room. 11:17:06 Patient NPO since Midnight. 11:17:40 Is the patient allergic to Iodine/contrast media? No. 11:17:41 Was the patient premedicated? No 11:17:43 Is patient on blood thinner?Yes 11:17:46 ACC The patient was administered the following blood thiners within the last 24 hours: ACCPlavix 11:17:48 Patient diabetic? Yes. 11:17:49 If diabetic: On Metformin? Yes 11:17:53 If on Metformin: Last Dose? 08/13/2017 11:17:57 Previous problem with sedation/anesthesia? No ? 11:18:01 Snore? Yes 11:18:02 Sleep apnea? Yes 11:18:03 Deviated septum? No 11:18:04 Opens mouth fully? Yes 11:18:04 Sticks out tongue? Yes 11:18:10 Airway obstruction? No ? 11:18:13 Dentures? No ? 11:20:54 Pre procedure: right dorsailis pedis pulse 1+ Palpable, but thready & weak; easily obliterated 11:20:56 Pre procedure: left dorsailis pedis pulse 1+ Palpable, but thready & weak; easily obliterated 11:20:58 Patient pain scale 0/10 ?. 11:21:28 IV started by Laurel Lindo RN inright forearm with a 22 gauge IV catheter with 0.9% NaCl at KVO. 11:22:16 Lab Result : BUN 16 mg/dl 11:22:16 Lab Result : Creatinine 1 mg/dl 11:22:16 Lab Result : Hemoglobin 13.7 g/dl 11:24:20 Oxygen 2 l/min NC was administered by Laurel Lindo RN; used for procedure; 11:24:27 Lidocaine 2% 20ml vial added to field was administered by Moisés Galvan MD; for local anesthetic; 11:24:34 Heparin Flush Bag (1000units/500ml NS) 2 bags added to field was administered by Moisés Galvan MD; used for procedure; 11::42 0.9% NaCl 100 ml/hr I.V. was administered by Laurel Lindo RN; Per physician; :: Lab results completed and on chart. 11::44 Right groin area was prepped with chlora-prep and draped in sterile fashion 11::45 Alarms reviewed by R. N. 11::46 Sharps counted by scrub and verified by R.N. 11:: Physician arrived 11:: --------ALL STOP TIME OUT------ :: Final Timeout: patient, procedure, and site verified with staff and physician. All members of the team are in agreement. 11::04 Right groin site verified by team. 11::07 Physical assessment completed. ASA score P 2 - A patient with mild systemic disease as per Moisés Galvan MD. 11:26:11 Sedation plan: IV Moderate Sedation Medication:Versed, Fentanyl 11:26:35 Use device set Femoral Dx 11:26:36 ACIST Syringe (76486) opened to sterile field. 11:26:36 Bag Decanter (2002S) opened to sterile field. 11:26:37 Medline Cath Pack ([id number]) opened to sterile field. 11:26:38 SHEATH 5FR Nutrioso (XYB841) opened to sterile field. 11:26:39 DIAGNOSTIC WIRE .035 260cm J wire (294414) opened to sterile field. 11:26:40 ACIST Hand Control (15440) opened to sterile field. 11:26:41 ACIST Manifold (77884) opened to sterile field. 11:26:41 DIAGNOSTIC Multipack 5Fr catheter set ([id number]) opened to sterile field. 11:26:42 Tegaderm 4 x 4 (1626W) opened to sterile field. 11:28:02 Zero performed for pressure channel P1 11:28:11 Procedure started. 11:28:15 Local anesthetic to right femoral artery with Lidocaine 2% by Moisés Galvan MD.INITIAL ACCESS ONLY 11:28:29 A 5 Fr sheath was inserted into the Right Femoral artery 11::32 Versed 1 mg I.V. was administered by Laurel Lindo RN; for sedation; 11:28:38 Fentanyl 50 mcg I.V. was administered by Laurel Lindo RN; for sedation; 11:29:50 A MULTIPACK Pigtail 5 Fr catheter was advanced over the wire and used for LV Angiography. 11:30:40 LV hemodynamics recorded. 11:30:41 LV gram done using DE LA CRUZ 11:30:43 Injector settings: Ml/sec: 5, Volume: 15, 11:30:49 EF : 60 % 11:31:17 A MULTIPACK JL 4.0 5Fr catheter was advanced over the wire and used for Left Coronary Angiography. 11:31:43 LCA angiography performed. 11:31:45 Injector settings: Ml/sec: 3, Volume: 6, 11:32:06 Versed 1 mg I.V. was administered by Laurel Lindo RN; for sedation; 11:32:10 Fentanyl 50 mcg I.V. was administered by Laurel Lindo RN; for sedation; 11:32:10 Catheter removed. 11:32:22 A MULTIPACK 3DRC 5Fr catheter was advanced over the wire and used for Multi-vessel Angiography. 11:32:56 CURRY angiography performed. 11:33:37 RCA angiography performed. 11:33:39 Injector settings: Ml/sec: 3, Volume: 6, 11:33:48 Catheter removed. 11:34:02 A DIAGNOSTIC AR 1 MOD 5Fr catheter ([id number]) was advanced over the wire and used for Right Coronary Angiography. 11:34:24 SVG to RCA angiography performed. 11:36:17 Catheter removed. 11:36:19 Proceeding to intervention. 11:36:48 FIELDER XT J 300cm guide wire ([id number]) opened to sterile field. 11:36:49 GUIDE 6FR XB 3.5 catheter ([id number]) opened to sterile field. 11:36:50 INFLATOR Merit BasixCompak (WS9787) opened to sterile field. 11:36:51 SHEATH 6FR Nutrioso (CVW260) opened to sterile field. 11:37:00 Sheath upsized to a 6 Fr Short. 11:37:06 6 Fr xb 3.5 guide catheter was inserted over the wire 11:37:10 fielder wire advanced. 11:37:12 Wire advanced across lesion. 11:37:33 Heparin Bolus 4000 units I.V. was administered by Laurel Lindo RN; for anticoagulation; verified with dr galvan 11:42:15 Inflation number: 1 A EUPHORA 1.5 x 15 Balloon ([id number]) was prepped and advanced across the Prox CX, then inflated to 17 SOLEDAD for 0:10 (min:sec). 11:42:40 Inflation number: 2 The EUPHORA 1.5 x 15 Balloon ([id number]) was reinflated across the Prox CX, to 17 SOLEDAD for 0:10 (min:sec). 11:43:30 Balloon removed over the wire. 11:43:41 Wire removed. 11:43:42 Guide catheter removed. 11:43:59 GUIDE 6FR AR 2.0 catheter ([id number]) opened to sterile field. 11:44:53 fielder wire advanced. 11:45:31 Wire advanced across lesion. 11:46:46 Inflation Number: 1 A LUL RX 2.5 x 12 stent ([id number]) was prepped and advanced across the Aorta Right -> Dist RCA. The stent was deployed at 17 SOLEDAD for 0:10 (min:sec). 11:46:53 Inflation number: 2 The stent balloon was then re-inflated across the Aorta Right -> Dist RCA to 17 SOLEDAD for 0:10 (min:sec). 11:47:46 Stent catheter was removed intact over wire. 11:47:49 Wire removed. 11:47:49 Guide catheter removed. 11:47:58 EXOSEAL 6Fr (EX600) opened to sterile field. 11:48:23 Sheath removed intact; hemostasis achieved with Exoseal to the Right Femoral artery. 11:48:29 Procedure ended.(Physican Out) 11:48:38 Fluoroscopy time 05.60 minutes. 11:48:42 Flurop Dose total: 793 11:48:42 Fluoroscopy dose: 793 mGy 11:49:14 Contrast amount:Isovue 300 112ml. 11:49:15 Sharps counted by scrub and verified by R.N. 11:49:17 Insertion/operative site no bleeding no hematoma. 11:49:28 Post-op/insertion site Right Femoral artery dressed using a 4 x 4 and Tegaderm. 11:49:31 Post right femoral artery:stable 11:49:32 Post Procedure Pulses reassessed and unchanged 11:49:35 Post procedure rhythm: unchanged. 11:49:38 Estimated blood loss: 5 ml 11:49:40 Post procedure instruction explained to patient.Patient verbalizes understanding. 11:49:40 Patient needs reinforcement of post procedure teaching. 11:50:02 Procedure type changed to Cath procedure, Diagnostic procedure, LHC, LHC w/Coronaries w/Grafts, PCI procedure, Coronary Stent, Coronary Stent Initial, PTCA, PTCA Initial, Miscellaneous Procedures, Moderate Sedation up to 30 minutes 11:50:03 Procedure and supply charges have been captured, reviewed, submitted and are correct. 11:50:08 Procedure Complication : No complications 11:50:10 Vital chart was stopped 11:50:10 See physician's report for complete and final results. 11:50:14 Report given to [facility]. 11:50:16 Patient transfered to [facility] with Stretcher. 11:50:18 Procedure ended. 11:50:18 Full Disclosure recording stopped 11:50:29 ACC-PCI Only Patient was given prescriptions, or instructed by Moisés Galvan MD to start/continue the following medications upon discharge: Plavix 11:50:31 End room use (Document Last) Intervention Summary Intervention Notes Time ActionType Lesion and Equipment Used Action# Pressure Duration Attributes 11:42:15 Inflate Prox CX EUPHORA 1.5 x 1 17 00:10 balloon 15 Balloon ([id number]) 11:42:40 Reinflate Prox CX EUPHORA 1.5 x 2 17 00:10 balloon 15 Balloon ([id number]) 11:46:46 Place stent Aorta Right LUL RX 2.5 x 1 17 00:10 -> Dist RCA 12 stent ([id number]) 11:46:53 Reinflate Aorta Right LUL RX 2.5 x 2 17 00:10 stent -> Dist RCA 12 stent balloon ([id number]) Device Usage Item Name Manufacture Quantity Catalog Hospital Part Current [facility] Lot# / Number Charge Number Stock Stock Serial# Code ACIST Syringe Acist 1 04900 368035 124531 [id number] 20 (61163) [employer] Bag Decanter Microtek 1 984557 73215 875528 5 () Medical Inc. Medline Cath Cardinal 1 [id number] 220715 96279 704401 5 [facility] ([id number]) SHEATH 5FR Terumo 1 JEO923 523149 557958 796634 40 Nutrioso (KXI132) DIAGNOSTIC [facility] 1 629679 357663 083321 311403 30 WIRE .035 260cm J wire (714723) ACIST Hand Acist 1 09418 915003 026722 426147 5 Control Medical (48951) Systems Inc ACIST Manifold Acist 1 49737 734255 889906 899372 5 (67371) Medical Systems Inc DIAGNOSTIC Cardinal 1 UM5348 953071 58714 544491 30 Multipack 5Fr Health catheter set ([id number]) Tegaderm 4 x 4 3M 1 1626W 755965 718082 503273 5 (1626W) MULTIPACK Cardinal 1 125495 5 Pigtail 5 Fr Health catheter MULTIPACK JL Cardinal 1 106306 5 4.0 5Fr Health catheter MULTIPACK 3DRC Cardinal 1 269737 5 5Fr catheter Health DIAGNOSTIC AR Cardinal 1 174127Q 711511 297298 215661 15 1 MOD 5Fr Health catheter (846602P) FIELDER XT J Schulz 1 [id number] 971777 866178 157157 5 300cm guide Vascular wire ([id number]) GUIDE 6FR XB Cardinal 1 [id number] 420944 826577 074676 2 3.5 [employer] (79821177) INFLATOR Merit Merit 1 KP8593 063159 803313 787310 15 [employer] Medical (XQ4929) SHEATH 6FR Terumo 1 XKS266 451889 637805 328486 40 Nutrioso (HVU830) EUPHORA 1.5 x Medtronic 1 [id number] 459454 716378 055549 5 [id number] 15 Balloon ([id number]) GUIDE 6FR AR Medtronic 1 [id number] 686458 50786 911661 1 2.0 catheter (SH7SS29) LUL RX 2.5 x Medtronic 1 [id number] 759102 5535514 967795 5 [id number] 12 stent ([id number]) EXOSEAL 6Fr Cardinal 1 EX600 704251 787391 575357 10 (EX600) Health Signature Audit [place] Stage Time Signature Unsigned Intra-Procedure 08/14/2017 Briseida Oneal 11:55:16 AM RT(R) Signatures Monitor : Briseida Oneal RT Signature : Date : Time : [facility] [address] [place] [address]
--- NOTE | ~2017-08-13 | DS ---
PATIENT:ERNIE STEPHENS :50 MEDICAL RECORD: [id number] DISCHARGE SUMMARY ADMISSION DATE: 08/13/17 DISCHARGE DATE: 08/14/17 DATE OF DISCHARGE: 08/14/2017. DIAGNOSES: 1. Unstable angina. 2. Coronary artery disease. 3. Percutaneous transluminal coronary angioplasty stent to right coronary artery this admission. HISTORY: Mrs. Stephens presents with unstable angina, found to have significant disease of the RCA after the vein graft, underwent successful PTCA stent of this territory. She had an uneventful postop course. Discharged home with no change in her medications as she is already on aspirin and Plavix. Will follow up with [facility] in 1 month. TRANSINT:[id number] Voice Confirmation ID: [id number] DOCUMENT ID: [id number] BRAXTON WRIGHT MD at 1324 CC: [id number] DICTATION DATE: 08/14/17 1151 FEED MILL MANAGER: 08/15/17 0214 DIS IN 08/14/17 [address] [place] [address]
[~2017-08-13 19:07] MED LIST changes: +PRINIVIL10 MG PO
[2017-08-13 19:48] LABS: BASOPHILS 0.4 % (0-2); EOSINOPHILS 0.6 % (0-7); HEMATOCRIT 40.9 % (36.0-48.0); HEMOGLOBIN 14.4 g/dL (12-16); IMMATURE GRANULOCYTES 0.3 % (0-5); LYMPHOCYTES 32.4 % (15-50); MCH 31.4 pg (26.0-34.0); MCHC 35.2 g/dL (31.0-37.0); MCV 89.1 fL (80.0-100.0); MEAN PLATELET VOLUME 11.6 fL (7.4-10.4); MONOCYTES 7.3 % (2-11); RBC 4.59 10x6/uL (4.00-5.40); RDW 12.4 % (11.5-14.5); WBC 10.7 10x3/uL (4.8-10.8)
[2017-08-13 19:53] LABS: PLATELET COUNT 336 10x3/uL (130-400)
[2017-08-13 19:58] LABS: APTT 28.9 SECONDS (22.8-39.4); INR 1.03 (0.85-1.17); PROTIME 13.1 SECONDS (11.6-15.0)
[2017-08-13 19:59] LABS: D-DIMER-QUANTITATIVE 0.27 ug/mLFEU (0.20-0.54)
[2017-08-13 20:05] LABS: ALBUMIN 3.3 g/dL (3.4-5.0); ALKALINE PHOSPHATASE 140 U/L (46-116); ALT (SGPT) 19 U/L (10-68); BILIRUBIN - TOTAL 1.07 mg/dL (0.2-1.3); CALC OSMOLALITY 279 mosm/kg (275-300); CALCIUM 9.6 mg/dL (8.5-10.1); CARBON DIOXIDE 27.4 mmol/L (21.0-32.0); CHLORIDE - SERUM 95 mmol/L (98-107); CREATININE - SERUM 1.1 mg/dL (0.6-1.3); GLUCOSE 254 mg/dL (74-106); POTASSIUM - SERUM 3.8 mmol/L (3.5-5.1); PROTEIN - SERUM 7.6 g/dL (6.4-8.2); SODIUM 135 mmol/L (136-145); UREA NITROGEN 14 mg/dL (7-18); eGFR NON AFRICAN AMERICAN 52 mL/min (90-120)
[2017-08-13 20:16] LABS: CHOL - HDL RATIO 3.6 ratio (2.3-4.1); CHOLESTEROL, TOTAL 206 mg/dL (0-200); CKMB 0.4 U/L (0.0-3.6); CREATINE KINASE 30 UL (21-215); HDL CHOLESTEROL 57 mg/dL (32-96); TRIGLYCERIDE 447 mg/dL (30-200); TROPONIN-I 0.031 ng/mL (0.000-0.060)
[2017-08-13 23:23] VITALS: Ht 165.1 cm; Wt 100.2 kg
[2017-08-14] VITALS: BP 131/41
[2017-08-14 02:02] LABS: CKMB 0.6 U/L (0.0-3.6); CREATINE KINASE 39 UL (21-215); TROPONIN-I 0.034 ng/mL (0.000-0.060)
[2017-08-14 07:21] LABS: BASOPHILS 0.3 % (0-2); EOSINOPHILS 0.7 % (0-7); HEMATOCRIT 39.5 % (36.0-48.0); HEMOGLOBIN 13.7 g/dL (12-16); IMMATURE GRANULOCYTES 0.2 % (0-5); MCH 30.9 pg (26.0-34.0); MCHC 34.7 g/dL (31.0-37.0); MEAN PLATELET VOLUME 11.4 fL (7.4-10.4); MONOCYTES 8.8 % (2-11); PLATELET COUNT 297 10x3/uL (130-400); RBC 4.44 10x6/uL (4.00-5.40); RDW 12.4 % (11.5-14.5); WBC 10.3 10x3/uL (4.8-10.8)
[2017-08-14 07:51] LABS: CALC OSMOLALITY 279 mosm/kg (275-300); CALCIUM 9.3 mg/dL (8.5-10.1); CARBON DIOXIDE 25.9 mmol/L (21.0-32.0); CHLORIDE - SERUM 98 mmol/L (98-107); CKMB 0.7 U/L (0.0-3.6); CREATINE KINASE 43 UL (21-215); GLUCOSE 229 mg/dL (74-106); SODIUM 136 mmol/L (136-145); TROPONIN-I 0.035 ng/mL (0.000-0.060); UREA NITROGEN 16 mg/dL (7-18); eGFR NON AFRICAN AMERICAN 58 mL/min (90-120)
[2017-08-14 08:36] VITALS: BP 143/55
[2017-08-14 09:33] VITALS: BP 143/55
== END 2017-08-14 17:23 | disposition home or self-care (01) ==
LOC: D.ER 19:07 → OBSVTIME 21:50 → D.M2 21:50
PROVIDERS: Family Medicine
DX: I25.110 Atherosclerotic heart disease of native coronary artery with unstable angina pectoris (principal); Z95.5 Presence of coronary angioplasty implant and graft; Z95.1 Presence of aortocoronary bypass graft; Z72.0 Tobacco use; J44.9 Chronic obstructive pulmonary disease, unspecified; E11.9 Type 2 diabetes mellitus without complications; Z79.4 Long term (current) use of insulin; I10 Essential (primary) hypertension
CPT/HCPCS: 92920; 93459; C9600

== ENCOUNTER 2017-09-22 11:39 | Inpatient (IN) | payer MEDICARE ==
[~2017-09-22] VITALS: Ht 165.1 cm; Wt 102.3 kg
--- NOTE | ~2017-09-22 | EC ---
PATIENT:ERNIE VILLALBA DATE OF SERVICE: 09/22/17 SEX: F MEDICAL RECORD: [id number] DATE OF : 50 LOCATION:D.M2 D.212 AGE OF PATIENT: 67 ADMISSION DATE: 09/22/17 REFERRING PHYSICIAN: INTERPRETING PHYSICIAN: MARIA A MENDES MD ECHOCARDIOGRAM REPORT ECHO CHARGES 4 ECHO COMPLETE CLINICAL DIAGNOSIS: CP ECHOCARDIOGRAPHIC MEASUREMENTS (adult normal given) AC root (d.<3.7cm) 3.0 cm LV Septum d (<1.2 cm> 1.5 cm Valve Excursion 1.1 cm LV Septum (systole) 2.2 cm Left Atria (s.<4.0cm> 4.6 cm LVPW d(<1.2cm) 1.6 cm RV (d.<2.3cm) 2.7 cm LVPW (sytole) 2.3 cm LV diastole(<5.6CM) 5.2 cm MV E-F(>70mm/sec) cm LV systole 2.6 cm LVOT Diameter 1.7 cm MV exc.(>10mm) cm Est.ejection fraction (50-75%) % Pericardial Effusion N DOPPLER: LVIT cm/sec A 160 cm/sec E 131 cm/sec LA cm/sec RVSP 37.0 mmHg LVOT 179 cm/sec AOP1/2T m/s Asc. Ao 350 cm/sec RVOT 59.0 cm/sec RA cm/sec PA 107 cm/sec AV Gradient Peak 49.1 mmHg AV Mean 25.0 mmHg AV Area 1.0 cm MV Gradient Peak 10.3 mmHg MV Mean 2.8 mmHg MV Area cm COMMENTS: Finish Mender: Hector REAOE Welding Lead Burner: 4 Dr. Mendes TAPE# PACS DATE OF SERVICE: 09/23/2017 PROCEDURE: Transthoracic echocardiogram. FINDINGS: 1. Left ventricle shows normal function with an ejection fraction of 60%. No obvious regional wall motion abnormalities. The patient does have left ventricular hypertrophy with inflow characteristics consistent with diastolic dysfunction. 2. The left atrium has moderate dilatation with normal function. ECHOCARDIOGRAM REPORT [id number] ERNIE VILLALBA 3. The aortic valve shows mild aortic insufficiency, moderate aortic stenosis, a peak gradient of 49, a mean gradient of 25. 4. The mitral valve has mild mitral regurgitation with mitral annular calcification. 5. Tricuspid valve has mild tricuspid regurgitation. RVSP is 37 mmHg. 6. Pericardium is normal. 7. The right ventricle is normal. 8. The right atrium is normal size, normal function. CONCLUSIONS: The patient has evidence of hypertensive heart disease with [id number] aortic stenosis. TRANSINT:[id number] Voice Confirmation ID: [id number] DOCUMENT ID: [id number] 09/26/2017 Edited to correct date of service, dm. MARIA A MENDES MD at 0807 CC: [id number] DICTATION DATE: 09/24/17 0731 ELECTRICIAN OUTSIDE: 09/24/17 0951 ADM IN [facility] [address] [place] [address]
[2017-09-22 12:23] LABS: BASOPHILS 0.1 % (0-2); EOSINOPHILS 0.1 % (0-7); HEMATOCRIT 35.3 % (36.0-48.0); HEMOGLOBIN 12.4 g/dL (12-16); IMMATURE GRANULOCYTES 0.4 % (0-5); MCH 31.8 pg (26.0-34.0); MCHC 35.1 g/dL (31.0-37.0); MCV 90.5 fL (80.0-100.0); MEAN PLATELET VOLUME 11.3 fL (7.4-10.4); MONOCYTES 9.4 % (2-11); PLATELET COUNT 269 10x3/uL (130-400); RDW 12.6 % (11.5-14.5)
[2017-09-22 12:41] LABS: ALBUMIN 2.6 g/dL (3.4-5.0); ALKALINE PHOSPHATASE 135 U/L (46-116); ALT (SGPT) 26 U/L (10-68); BILIRUBIN - TOTAL 1.94 mg/dL (0.2-1.3); CALC OSMOLALITY 277 mosm/kg (275-300); CALCIUM 8.8 mg/dL (8.5-10.1); CARBON DIOXIDE 25.6 mmol/L (21.0-32.0); CHLORIDE - SERUM 100 mmol/L (98-107); CREATININE - SERUM 0.7 mg/dL (0.6-1.3); POTASSIUM - SERUM 3.4 mmol/L (3.5-5.1); SODIUM 134 mmol/L (136-145); UREA NITROGEN 7 mg/dL (7-18); eGFR NON AFRICAN AMERICAN 88 mL/min (90-120)
[2017-09-22 12:50] LABS: GLUCOSE 309 mg/dL (74-106)
[2017-09-22 12:57] LABS: CHOL - HDL RATIO 3.8 ratio (2.3-4.1); CHOLESTEROL, TOTAL 175 mg/dL (0-200); CKMB 0.5 U/L (0.0-3.6); CREATINE KINASE 28 UL (21-215); HDL CHOLESTEROL 46 mg/dL (32-96); LDL CHOLESTEROL 117 mg/dL (0-100); LDL-HDL RATIO 2.5 ratio (1.5-3.5); TRIGLYCERIDE 61 mg/dL (30-200)
[2017-09-22 13:13] LABS: TROPONIN-I 0.081 ng/mL (0.000-0.060)
[2017-09-22 16:11] LABS: CKMB 0.4 U/L (0.0-3.6); CREATINE KINASE 19 UL (21-215)
[2017-09-22 16:15] LABS: TROPONIN-I 0.065 ng/mL (0.000-0.060)
[2017-09-22 17:34] VITALS: BP 178/53; BMI 37.1
[2017-09-22 22:15] VITALS: BP 134/71
[2017-09-22 23:09] LABS: CKMB 0.6 U/L (0.0-3.6); CREATINE KINASE 22 UL (21-215); TROPONIN-I 0.036 ng/mL (0.000-0.060)
[2017-09-23 01:30] VITALS: BP 110/44
[2017-09-23 05:34] LABS: BASOPHILS 0.1 % (0-2); HEMATOCRIT 34.6 % (36.0-48.0); HEMOGLOBIN 11.8 g/dL (12-16); IMMATURE GRANULOCYTES 0.3 % (0-5); LYMPHOCYTES 14.8 % (15-50); MCH 31.5 pg (26.0-34.0); MCHC 34.1 g/dL (31.0-37.0); MCV 92.3 fL (80.0-100.0); MEAN PLATELET VOLUME 11.8 fL (7.4-10.4); NEUTROPHILS 71.8 % (40-80); PLATELET COUNT 285 10x3/uL (130-400); RBC 3.75 10x6/uL (4.00-5.40); RDW 12.8 % (11.5-14.5); WBC 14.3 10x3/uL (4.8-10.8)
[2017-09-23 06:20] VITALS: BP 118/56
[2017-09-23 06:25] LABS: CALC OSMOLALITY 279 mosm/kg (275-300); CALCIUM 8.5 mg/dL (8.5-10.1); CHLORIDE - SERUM 101 mmol/L (98-107); CKMB 0.6 U/L (0.0-3.6); CREATINE KINASE 15 UL (21-215); CREATININE - SERUM 0.8 mg/dL (0.6-1.3); GLUCOSE 268 mg/dL (74-106); POTASSIUM - SERUM 3.7 mmol/L (3.5-5.1); SODIUM 136 mmol/L (136-145); TROPONIN-I 0.018 ng/mL (0.000-0.060); eGFR NON AFRICAN AMERICAN 76 mL/min (90-120)
[2017-09-23 06:26] LABS: UREA NITROGEN 10 mg/dL (7-18)
[2017-09-23 08:40] VITALS: BP 132/63
[2017-09-23 12:06] VITALS: BP 129/53
[2017-09-23 16:29] VITALS: BP 107/44
[2017-09-23 20:00] VITALS: BP 101/40
[2017-09-24] VITALS (7 sets, daily range): BP systolic 102–132; BP diastolic 41–79
[2017-09-24 05:06] LABS: BASOPHILS 0.1 % (0-2); EOSINOPHILS 2.3 % (0-7); HEMATOCRIT 35.5 % (36.0-48.0); HEMOGLOBIN 11.7 g/dL (12-16); IMMATURE GRANULOCYTES 0.3 % (0-5); LYMPHOCYTES 15.7 % (15-50); MCH 31.4 pg (26.0-34.0); MEAN PLATELET VOLUME 11.9 fL (7.4-10.4); MONOCYTES 11.8 % (2-11); NEUTROPHILS 69.8 % (40-80); RBC 3.73 10x6/uL (4.00-5.40); RDW 13.2 % (11.5-14.5); WBC 17.2 10x3/uL (4.8-10.8)
[2017-09-24 05:14] LABS: MCV 95.2 fL (80.0-100.0); PLATELET COUNT 367 10x3/uL (130-400)
[2017-09-24 06:32] LABS: ALBUMIN 2.5 g/dL (3.4-5.0); ANION GAP 14.9 mmol/L (8-16); BILIRUBIN - TOTAL 0.58 mg/dL (0.2-1.3); CALCIUM 8.7 mg/dL (8.5-10.1); CARBON DIOXIDE 28.1 mmol/L (21.0-32.0); PROTEIN - SERUM 6.5 g/dL (6.4-8.2)
[2017-09-24] MEDS ORDERED: MUPIROCIN22 GM TOPICAL (13:42)
[2017-09-24] MEDS ORDERED: [UNRECOGNIZED DRUG - OTHER] TOPICAL (13:43)
[2017-09-24 17:16] LABS: ERYTHROCYTE SEDIMENTATION RATE 34 mm/hr (0-30)
[2017-09-25 01:47] LABS: PROTEIN - URINE 49.2 mg/dL (0.0-11.9)
[2017-09-25 01:54] LABS: CREATININE - URINE 240.3 mg/dL (30-125); PRO/CRE RATIO URINE 0.2 mg/g
[2017-09-25 01:59] LABS: APPEARANCE CLEAR (CLEAR); BACTERIA FEW /hpf (NONE SEEN); BILIRUBIN NEGATIVE (NEGATIVE); COLOR DK YELLOW (YELLOW); EPITHELIAL CELLS 0-5 /hpf (0-5); GLUCOSE NEGATIVE (NEGATIVE); KETONE NEGATIVE (NEGATIVE); MUCUS <1+ /lpf (NONE SEEN); NITRITE NEGATIVE (NEGATIVE); PROTEIN NEGATIVE (NEGATIVE); RED CELLS - URINE 0-5 /hpf (0-5); UROBILINOGEN NORMAL (NORMAL); WHITE CELLS - URINE 0-5 /hpf (0-5)
[2017-09-25 04:00] VITALS: BP 175/53
[2017-09-25 04:59] LABS: BASOPHILS 0.1 % (0-2); HEMATOCRIT 32.3 % (36.0-48.0); HEMOGLOBIN 10.7 g/dL (12-16); IMMATURE GRANULOCYTES 0.4 % (0-5); LYMPHOCYTES 13.5 % (15-50); MCH 31.1 pg (26.0-34.0); MCHC 33.1 g/dL (31.0-37.0); MCV 93.9 fL (80.0-100.0); MEAN PLATELET VOLUME 11.5 fL (7.4-10.4); MONOCYTES 9.8 % (2-11); NEUTROPHILS 75.2 % (40-80); PLATELET COUNT 309 10x3/uL (130-400); RBC 3.44 10x6/uL (4.00-5.40); WBC 18.2 10x3/uL (4.8-10.8)
[2017-09-25 05:17] LABS: ALBUMIN 2.2 g/dL (3.4-5.0); ANION GAP 11.6 mmol/L (8-16); BILIRUBIN - TOTAL 0.96 mg/dL (0.2-1.3); CALCIUM 8.4 mg/dL (8.5-10.1); CARBON DIOXIDE 25.8 mmol/L (21.0-32.0); POTASSIUM - SERUM 3.4 mmol/L (3.5-5.1); PROTEIN - SERUM 6.4 g/dL (6.4-8.2)
[2017-09-25 05:22] LABS: CREATININE - SERUM 1.4 mg/dL (0.6-1.3)
[2017-09-25 08:06] VITALS: BP 178/53
[2017-09-25 08:35] LABS: AMYLASE - SERUM 41 U/L (25-115); LIPASE 245 U/L (73-393)
[2017-09-25 11:14] VITALS: BP 161/62
[2017-09-25 14:19] LABS: APPEARANCE CLEAR (CLEAR); BACTERIA FEW /hpf (NONE SEEN); BILIRUBIN NEGATIVE (NEGATIVE); COLOR DK YELLOW (YELLOW); EPITHELIAL CELLS 0-5 /hpf (0-5); GLUCOSE NEGATIVE (NEGATIVE); KETONE NEGATIVE (NEGATIVE); MUCUS <1+ /lpf (NONE SEEN); NITRITE NEGATIVE (NEGATIVE); PROTEIN NEGATIVE (NEGATIVE); RED CELLS - URINE 0-5 /hpf (0-5); SPECIFIC GRAVITY 1.015 (1.005-1.020); UROBILINOGEN NORMAL (NORMAL); WHITE CELLS - URINE RARE /hpf (0-5)
[2017-09-25 14:20] LABS: HYALINE CAST 0-5 /lpf (NONE SEEN)
[2017-09-25 14:22] LABS: SPE - A/G RATIO 0.7 (0.7-1.7); SPE - ALBUMIN 2.7 g/dL (2.9-4.4); SPE - ALPHA-1 GLOBULIN 0.3 g/dL (0.0-0.4); SPE - ALPHA-2 GLOBULIN 0.7 g/dL (0.4-1.0); SPE - BETA GLOBULIN 1.2 g/dL (0.7-1.3); SPE - GAMMA GLOBULIN 1.4 g/dL (0.4-1.8); SPE - M-SPIKE Not Observed g/dL (Not Observed); SPE - TOTAL PROTEIN 6.4 g/dL (6.0-8.5)
[2017-09-25 14:56] VITALS: BP 144/58
[2017-09-25 20:56] VITALS: BP 117/39
[2017-09-26 01:20] VITALS: BP 118/40
[2017-09-26 04:42] LABS: BASOPHILS 0.1 % (0-2); EOSINOPHILS 2.4 % (0-7); HEMATOCRIT 31.6 % (36.0-48.0); HEMOGLOBIN 10.5 g/dL (12-16); IMMATURE GRANULOCYTES 0.4 % (0-5); LYMPHOCYTES 11.7 % (15-50); MCH 31.3 pg (26.0-34.0); MCHC 33.2 g/dL (31.0-37.0); MEAN PLATELET VOLUME 11.7 fL (7.4-10.4); MONOCYTES 8.9 % (2-11); NEUTROPHILS 76.5 % (40-80); PLATELET COUNT 321 10x3/uL (130-400); RBC 3.36 10x6/uL (4.00-5.40); WBC 17.9 10x3/uL (4.8-10.8)
[2017-09-26 04:53] LABS: INR 1.2 (0.85-1.17); PROTIME 14.8 SECONDS (11.6-15.0)
[2017-09-26 04:54] LABS: ALKALINE PHOSPHATASE 119 U/L (46-116); ALT (SGPT) 14 U/L (10-68); AMYLASE - SERUM 23 U/L (25-115); BILIRUBIN - TOTAL 0.58 mg/dL (0.2-1.3); CALC OSMOLALITY 281 mosm/kg (275-300); CALCIUM 8.3 mg/dL (8.5-10.1); CARBON DIOXIDE 25.5 mmol/L (21.0-32.0); CHLORIDE - SERUM 106 mmol/L (98-107); CREATININE - SERUM 0.8 mg/dL (0.6-1.3); GLUCOSE 189 mg/dL (74-106); LIPASE 89 U/L (73-393); POTASSIUM - SERUM 4.3 mmol/L (3.5-5.1); PROTEIN - SERUM 6.2 g/dL (6.4-8.2); SODIUM 137 mmol/L (136-145); UREA NITROGEN 20 mg/dL (7-18); eGFR NON AFRICAN AMERICAN 76 mL/min (90-120)
[2017-09-26 06:40] VITALS: BP 115/45
[2017-09-26 08:04] VITALS: BP 178/53
[2017-09-26 11:04] VITALS: BP 165/63
[2017-09-26 14:22] LABS: UPE RAND - ALPHA 1 GLOBULIN 5.6 % (()); UPE RAND - ALPHA 2 GLOBULIN 16.6 % (()); UPE RAND - BETA GLOBULIN 34.3 % (()); UPE RAND - GAMMA GLOBULIN 38.4 % (())
[2017-09-26 14:39] VITALS: BP 142/66
[2017-09-26 20:39] VITALS: BP 140/48
[2017-09-27] VITALS: BP 115/44
[2017-09-27 04:51] LABS: BASOPHILS 0.2 % (0-2); EOSINOPHILS 3.7 % (0-7); HEMATOCRIT 33.9 % (36.0-48.0); HEMOGLOBIN 11.1 g/dL (12-16); IMMATURE GRANULOCYTES 0.3 % (0-5); MCH 31.1 pg (26.0-34.0); MCHC 32.7 g/dL (31.0-37.0); MEAN PLATELET VOLUME 11.4 fL (7.4-10.4); MONOCYTES 8.2 % (2-11); NEUTROPHILS 73.6 % (40-80); PLATELET COUNT 352 10x3/uL (130-400); RBC 3.57 10x6/uL (4.00-5.40); WBC 14.5 10x3/uL (4.8-10.8)
[2017-09-27 04:53] VITALS: BP 143/60
[2017-09-27 05:12] LABS: ALBUMIN 2.1 g/dL (3.4-5.0); ALKALINE PHOSPHATASE 130 U/L (46-116); ALT (SGPT) 15 U/L (10-68); BILIRUBIN - TOTAL 0.39 mg/dL (0.2-1.3); CALC OSMOLALITY 277 mosm/kg (275-300); CALCIUM 8.5 mg/dL (8.5-10.1); CARBON DIOXIDE 29.2 mmol/L (21.0-32.0); CHLORIDE - SERUM 105 mmol/L (98-107); CREATININE - SERUM 0.8 mg/dL (0.6-1.3); GLUCOSE 153 mg/dL (74-106); POTASSIUM - SERUM 4.2 mmol/L (3.5-5.1); PRO BNP 1313 pg/mL (0-125); PROTEIN - SERUM 6.6 g/dL (6.4-8.2); SODIUM 137 mmol/L (136-145); UREA NITROGEN 16 mg/dL (7-18); eGFR NON AFRICAN AMERICAN 76 mL/min (90-120)
[2017-09-27 08:09] VITALS: BP 153/60
[2017-09-27 11:19] VITALS: BP 136/43
[2017-09-27 14:10] VITALS: Ht 165.1 cm; Wt 102.3 kg
[2017-09-27 15:22] VITALS: BP 147/61
[2017-09-27 20:59] VITALS: BP 173/57
[2017-09-28 00:36] VITALS: BP 151/55
[2017-09-28 04:08] LABS: BASOPHILS 0.3 % (0-2); EOSINOPHILS 2.7 % (0-7); HEMATOCRIT 33.1 % (36.0-48.0); HEMOGLOBIN 10.9 g/dL (12-16); IMMATURE GRANULOCYTES 0.4 % (0-5); LYMPHOCYTES 16.2 % (15-50); MCH 31.1 pg (26.0-34.0); MCHC 32.9 g/dL (31.0-37.0); MCV 94.3 fL (80.0-100.0); MEAN PLATELET VOLUME 11.3 fL (7.4-10.4); MONOCYTES 10.7 % (2-11); NEUTROPHILS 69.7 % (40-80); PLATELET COUNT 356 10x3/uL (130-400); RBC 3.51 10x6/uL (4.00-5.40); RDW 12.7 % (11.5-14.5); WBC 11.9 10x3/uL (4.8-10.8)
[2017-09-28 04:28] LABS: ALBUMIN 2.2 g/dL (3.4-5.0); ALKALINE PHOSPHATASE 138 U/L (46-116); ALT (SGPT) 15 U/L (10-68); BILIRUBIN - TOTAL 0.58 mg/dL (0.2-1.3); CALCIUM 8.8 mg/dL (8.5-10.1); CARBON DIOXIDE 29.8 mmol/L (21.0-32.0); CHLORIDE - SERUM 102 mmol/L (98-107); CREATININE - SERUM 0.7 mg/dL (0.6-1.3); GLUCOSE 189 mg/dL (74-106); POTASSIUM - SERUM 4.3 mmol/L (3.5-5.1); PROTEIN - SERUM 6.6 g/dL (6.4-8.2); SODIUM 136 mmol/L (136-145); eGFR NON AFRICAN AMERICAN 88 mL/min (90-120)
[2017-09-28 04:37] LABS: CALC OSMOLALITY 275 mosm/kg (275-300); UREA NITROGEN 11 mg/dL (7-18)
[2017-09-28 05:17] VITALS: BP 152/56
[2017-09-28 08:39] VITALS: BP 171/54
[2017-09-28 10:19] LABS: IMMUNOGLOBULIN A 354 mg/dL (87-352); IMMUNOGLOBULIN G 1290 mg/dL (700-1600)
[2017-09-28 12:16] LABS: ANA REFLEX - ANTICHROMATIN ABS <0.2 AI (0.0-0.9); ANA REFLEX - CENTROMERE B ABS <0.2 AI (0.0-0.9); ANA REFLEX - DBL STRANDED DNA 1 IU/mL (0-9); ANA REFLEX - DIRECT Positive (Negative); ANA REFLEX - JO-1 AB <0.2 AI (0.0-0.9); ANA REFLEX - RNP ANTIBODIES 2.3 AI (0.0-0.9); ANA REFLEX - SCL-70 <0.2 AI (0.0-0.9); ANA REFLEX - SJOGRENS AB SSA <0.2 AI (0.0-0.9); ANA REFLEX - SJOGRENS AB SSB <0.2 AI (0.0-0.9); ANA REFLEX - SMITH AB <0.2 AI (0.0-0.9)
[2017-09-28 14:23] VITALS: BP 135/54
[2017-09-28 16:01] VITALS: BP 133/50
[2017-09-28 19:00] VITALS: BP 152/68
[2017-09-29] VITALS: BP 187/56
[2017-09-29 04:00] VITALS: BP 126/69
[2017-09-29 04:39] LABS: BASOPHILS 0.5 % (0-2); EOSINOPHILS 3.4 % (0-7); HEMATOCRIT 33.1 % (36.0-48.0); HEMOGLOBIN 10.9 g/dL (12-16); IMMATURE GRANULOCYTES 0.4 % (0-5); MCH 30.9 pg (26.0-34.0); MCHC 32.9 g/dL (31.0-37.0); MCV 93.8 fL (80.0-100.0); MEAN PLATELET VOLUME 11.2 fL (7.4-10.4); MONOCYTES 9.9 % (2-11); NEUTROPHILS 62.8 % (40-80); PLATELET COUNT 358 10x3/uL (130-400); RBC 3.53 10x6/uL (4.00-5.40); RDW 12.7 % (11.5-14.5); WBC 10.9 10x3/uL (4.8-10.8)
[2017-09-29 04:56] LABS: ALBUMIN 2.2 g/dL (3.4-5.0); ALKALINE PHOSPHATASE 182 U/L (46-116); ALT (SGPT) 21 U/L (10-68); BILIRUBIN - TOTAL 0.59 mg/dL (0.2-1.3); CALC OSMOLALITY 276 mosm/kg (275-300); CARBON DIOXIDE 30.8 mmol/L (21.0-32.0); CHLORIDE - SERUM 101 mmol/L (98-107); CREATININE - SERUM 0.7 mg/dL (0.6-1.3); GLUCOSE 205 mg/dL (74-106); POTASSIUM - SERUM 4.4 mmol/L (3.5-5.1); PROTEIN - SERUM 6.5 g/dL (6.4-8.2); SODIUM 136 mmol/L (136-145); UREA NITROGEN 10 mg/dL (7-18); eGFR NON AFRICAN AMERICAN 88 mL/min (90-120)
[2017-09-29 07:46] VITALS: BP 173/65
[2017-09-29 11:39] VITALS: BP 158/66
[2017-09-29 15:34] VITALS: BP 122/56
[2017-09-29 20:00] VITALS: BP 142/66
[2017-09-30 04:00] VITALS: BP 1853/58
[2017-09-30 05:03] LABS: BASOPHILS 0.4 % (0-2); EOSINOPHILS 2.8 % (0-7); HEMOGLOBIN 11.1 g/dL (12-16); IMMATURE GRANULOCYTES 0.8 % (0-5); MCH 30.9 pg (26.0-34.0); MCHC 32.6 g/dL (31.0-37.0); MCV 94.7 fL (80.0-100.0); MEAN PLATELET VOLUME 11.2 fL (7.4-10.4); MONOCYTES 8.8 % (2-11); NEUTROPHILS 60.2 % (40-80); PLATELET COUNT 381 10x3/uL (130-400); RBC 3.59 10x6/uL (4.00-5.40); RDW 12.9 % (11.5-14.5); WBC 12.6 10x3/uL (4.8-10.8)
[2017-09-30 05:25] LABS: ALBUMIN 2.2 g/dL (3.4-5.0); ANION GAP 10.1 mmol/L (8-16); BILIRUBIN - TOTAL 0.5 mg/dL (0.2-1.3); CALCIUM 8.2 mg/dL (8.5-10.1); CARBON DIOXIDE 30.2 mmol/L (21.0-32.0); POTASSIUM - SERUM 4.3 mmol/L (3.5-5.1); PROTEIN - SERUM 6.4 g/dL (6.4-8.2)
[2017-09-30 05:26] LABS: CREATININE - SERUM 0.9 mg/dL (0.6-1.3)
[2017-09-30 08:59] VITALS: BP 164/77
[2017-09-30 13:10] VITALS: BP 112/48
[2017-09-30 15:55] VITALS: BP 144/60
[2017-09-30 19:37] VITALS: BP 113/53
[2017-10-01 01:33] VITALS: BP 113/42
[2017-10-01 05:53] VITALS: BP 183/57
[2017-10-01 06:16] LABS: ALBUMIN 2.4 g/dL (3.4-5.0); BILIRUBIN - TOTAL 0.31 mg/dL (0.2-1.3); CALCIUM 8.8 mg/dL (8.5-10.1); CARBON DIOXIDE 32.4 mmol/L (21.0-32.0); POTASSIUM - SERUM 4.4 mmol/L (3.5-5.1); PROTEIN - SERUM 6.2 g/dL (6.4-8.2)
[2017-10-01 08:46] VITALS: BP 168/68
[2017-10-01 12:54] VITALS: BP 142/63
[2017-10-01 16:11] VITALS: BP 126/58
[2017-10-01 16:11] LABS: ANCA - ANTIMYELOPEROXIDASE <9.0 U/mL (0.0-9.0); ANCA - ANTIPROTEINASE 3 <3.5 U/mL (0.0-3.5); ANCA - ATYPICAL <1:20 titer (Neg:<1:20); ANCA - CYTOPLASMIC <1:20 titer (Neg:<1:20); ANCA - PERINUCLEAR <1:20 titer (Neg:<1:20)
[2017-10-01 19:00] VITALS: BP 178/64
[2017-10-02] VITALS: BP 135/107
[2017-10-02 03:09] LABS: MYCOPLASMA PNEUMO IGG <100 U/mL (0-99)
[2017-10-02 04:00] VITALS: BP 180/66
[2017-10-02 08:02] VITALS: BP 167/66
[2017-10-02 11:34] VITALS: BP 178/67
[2017-10-02 15:26] LABS: IMMUNOGLOBULIN E 187 IU/mL (0-100)
[2017-10-02 16:13] VITALS: BP 150/69
[2017-10-02 20:00] VITALS: BP 119/50
[2017-10-03] VITALS: BP 136/39
[2017-10-03 04:00] VITALS: BP 129/53
[2017-10-03 08:00] VITALS: BP 147/50
[2017-10-03 08:01] LABS: BASOPHILS 0.4 % (0-2); EOSINOPHILS 3.2 % (0-7); HEMATOCRIT 37.7 % (36.0-48.0); HEMOGLOBIN 12.5 g/dL (12-16); IMMATURE GRANULOCYTES 1.1 % (0-5); LYMPHOCYTES 25.4 % (15-50); MCH 31.4 pg (26.0-34.0); MCHC 33.2 g/dL (31.0-37.0); MCV 94.7 fL (80.0-100.0); MEAN PLATELET VOLUME 11.2 fL (7.4-10.4); MONOCYTES 9.5 % (2-11); NEUTROPHILS 60.4 % (40-80); PLATELET COUNT 420 10x3/uL (130-400); RBC 3.98 10x6/uL (4.00-5.40); RDW 13.4 % (11.5-14.5)
[2017-10-03 08:22] LABS: ALBUMIN 2.6 g/dL (3.4-5.0); BILIRUBIN - TOTAL 0.52 mg/dL (0.2-1.3); CALCIUM 9.3 mg/dL (8.5-10.1); CREATININE - SERUM 0.9 mg/dL (0.6-1.3); PROTEIN - SERUM 7.2 g/dL (6.4-8.2)
[2017-10-03] MEDS ORDERED: IPRAT-ALBUT 0.5-3 ML INH (10:36)
[2017-10-03] MEDS ORDERED: VIBRAMYCIN 100100 MG PO (10:38)
[2017-10-03 12:34] VITALS: BP 130/56
== END 2017-10-03 15:02 | DRG 291 ==
LOC: D.ER 11:39 → D.M2 15:29 → D.EDHOLD 15:29 → D.M2 16:40
PROVIDERS: Family Medicine; Internal Medicine Gastroenterology; Internal Medicine Nephrology; Internal Medicine Pulmonary Disease
DX: I11.0 Hypertensive heart disease with heart failure (principal); J18.9 Pneumonia, unspecified organism; N17.9 Acute kidney failure, unspecified; K56.7 Ileus, unspecified; I50.31 Acute diastolic (congestive) heart failure; I48.91 Unspecified atrial fibrillation; I25.10 Atherosclerotic heart disease of native coronary artery without angina pectoris; J44.9 Chronic obstructive pulmonary disease, unspecified; E87.6 Hypokalemia; N14.1 Nephropathy induced by other drugs, medicaments and biological substances; T50.8X5A Adverse effect of diagnostic agents, initial encounter; E11.65 Type 2 diabetes mellitus with hyperglycemia

== ENCOUNTER 2019-03-09 23:44 | Inpatient (IN) | payer MEDICARE ==
[~2019-03-09] VITALS: Ht 165.1 cm; Wt 81.9 kg
--- NOTE | ~2019-03-09 | EC ---
PATIENT:ERNIE VILLALBA DATE OF SERVICE: 03/10/19 SEX: F MEDICAL RECORD: [id number] DATE OF : [birth year] LOCATION:D.M2 D.212 AGE OF PATIENT: 69 ADMISSION DATE: 03/10/19 REFERRING PHYSICIAN: INTERPRETING PHYSICIAN: ALICIA ALVA MD ECHOCARDIOGRAM REPORT ECHO CHARGES 4 ECHO COMPLETE Date: 03/12/19 CLINICAL DIAGNOSIS: CHF ECHOCARDIOGRAPHIC MEASUREMENTS (adult normal given) AC root (d.<3.7cm) 2.8 cm LV Septum d (<1.2 cm> 1.2 cm Valve Excursion 0.6 cm LV Septum (systole) 1.7 cm Left Atria (s.<4.0cm> 5.1 cm LVPW d(<1.2cm) 1.2 cm RV (d.<2.3cm) 2.4 cm LVPW (sytole) 1.6 cm LV diastole(<5.6CM) 6.2 cm MV E-F(>70mm/sec) cm LV systole 4.6 cm LVOT Diameter 1.6 cm MV exc.(>10mm) cm Est.ejection fraction (50-75%) % DOPPLER: LVIT cm/sec A 174 cm/sec E 189 cm/sec LA cm/sec RVSP 48.4 mmHg LVOT 124 cm/sec AOP1/2T m/s Asc. Ao 314.0cm/sec RVOT 60.0 cm/sec RA cm/sec PA 90.0 cm/sec AV Gradient Peak 39.3 mmHg AV Mean 20.0 mmHg AV Area 0.8 cm MV Gradient Peak 17.3 mmHg MV Mean 8.3 mmHg MV Area cm COMMENTS: Nursing Care Attendant: Hector REAOE Clinical Pharmacologist: 3 Dr. Rojas TAPE# PACS Pericardial Effusion N DATE OF SERVICE: PROCEDURE: Transesophageal note. DESCRIPTION OF PROCEDURE: After general sedation via TIVA anesthesia, transesophageal Omniplane probe was advanced to the distal esophagus and proximal stomach without difficulty. FINDINGS: No LVH. LV internal dimensions appear at least upper limits of normal, if not dilated. LV is globally hypokinetic, EF reduced at 25%. Aortic ECHOCARDIOGRAM REPORT [id number] ERNIE VILLALBA valve is calcified with restriction of leaflet motion. Could not get coaxial for velocities; however, planimeter in the best view showed a valve area of 0.7 cm-squared. There is mild AI present as well. Left atrium appears mildly dilated. Atrial appendage is well visualized with good contractility. The anterior leaflet of the mitral valve is calcified with restriction of leaflet motion; however, good excursion of the posterior leaflet and moderate MR. Right-sided chamber is grossly normal. Mild TR. At the end of the procedure, was turned posteriorly and this showed minimal atherosclerotic debris in the descending aorta. IMPRESSION: Cardiomyopathy, multifactorial, critical via planimeter. TRANSINT:[id number] Voice Confirmation ID: [id number] DOCUMENT ID: [id number] ALICIA ALVA MD CC: [id number] DICTATION DATE: 03/12/19 1019 COMPLETION MANAGER: 03/12/19 1221 ADM IN [facility] [address] [place] [address]
--- NOTE | ~2019-03-09 | HEMODYNAMI ---
PATIENT:ERNIE VILLALBA MEDICAL RECORD: [id number] : 50 LOCATION:[facility] D.2121 ADMISSION DATE: 03/10/19 Generatedon:03/12/201910:16 Patient name: ERNIE VILLALBA Patient #: [id number] SSN: [id number] : 1950 Date of study: 03/12/2019 Page: Of Hemodynamic Procedure Report Patient Data Patient Demographics Procedure consent was obtained First Name: ERNIE Gender: Female Last Name: ORLY : 1950 Patient #: [id number] Age: 69 year(s) Race: SSN: [id number] Additional ID: [id number] Contact details Address: [address] [place] [address] State: [place] City: [place] Zip code: [address] Past Medical History Allergies Allergen Reaction Date Comments Reported Other allergy 03/10/2019 [facility] Admission Admission Data Admission Date: 03/10/2019 Admission Time: 2:48 Arrival Date: 03/10/2019 Arrival Time: 0:00 Room #: D.2121 Insurance Payor: Medicare [facility] #: [id number] Height (in.): 64.96 BSA: 1.88 (m2) Height (cm.): 165 BMI: 29.75 (kg/m2) Weight (lbs.): 178.58 Weight (kg.): 81 Medications upon Admission Medications Dosage Times Administered Last Remarks per Delivery Day Date and Time Beta Sol 25 mg (any) NANNETTE 10 mg Inhibitor (any) Lab Results Lab Result Date: 03/10/2019 Lab Result Time: 0:00 Biochemistry Name Units Result Min Max BUN mg/dl 7 --(*---)-- 7 18 Creatinine mg/dl 0.7 --(*---)-- 0.6 1.3 eGFR ml/min 88.29772 -*(----)-- 90 120 NONAFRICAN CBC Name Units Result Min Max Hematocrit % 33.9 *-(----)-- 42 54 Hemoglobin g/dl 11.5 *-(----)-- 13.5 17.5 Procedure Procedure Types Cath Procedure Diagnostic Procedure JANIA Procedure Description Procedure Date Procedure Date: 03/12/2019 Procedure Start Time: 9:54 Procedure End Time: 10:05 Procedure Staff Name Function Ketan Graham MD Performing Physician Briseiad Oneal RT Monitor [place] Wheel Operator Sekou Vargas CRNA Additional personnel Gilmer Campbell RN Nurse Indication CHF Procedure Data Cath Procedure Fluoroscopy Diagnostic fluoroscopy Total fluoroscopy Time: 0 time: 0 min min Diagnostic fluoroscopy Total fluoroscopy dose: 0 dose: 0 mGy mGy Contrast Material Contrast Material Type Amount (ml) Isovue 300 0 Estimated blood loss: 0 ml Procedure Complications No complications Procedure Medications Medication Administration Route Dosage 0.9% NaCl I.V. 100 ml/hr Oxygen etCO2 Nasal cannula 5 l/min Hurricaine [place] P.O. [address] Sprays Refer to Anesthesia Notes for Sedation Medications Hemodynamics Rest BSA: 1.88 (m2) HGB: 11.5 (g/dl) O2 Consumption: Estimated: 189.16 (ml/min) O2 Consumption indexed: Estimated:100.62 (ml/min/m) Heart Rate: 92 (bpm) Snapshots Pre Cath Intra NCS Post Cath Vital Signs Time Heart Resp SPO2 etCO2 NIBP (mmHg) Rhythm Pain Sedation Rate (ipm) (%) (mmHg) Status Level (bpm) 9:41:37 80 21 98 33.8 112/60(90) NSR 0 (11) 10(A) , No pain 9:45:47 78 22 99 31.5 109/68(101) NSR 0 (11) 10(A) , No pain 9:49:59 81 23 99 27.7 106/60(97) NSR 0 (11) 10(A) , No pain 9:54:09 80 23 100 21 116/65(99) NSR 0 (11) 10(A) , No pain 9:58:25 76 21 99 8.2 91/58(79) NSR 0 (11) 8(A) , No pain 10:02:33 74 18 100 10.5 92/52(73) NSR 0 (11) 8(A) , No pain 10:09:39 73 16 99 25.5 99/55(83) NSR 0 (11) 9(A) , No pain Medications Time Medication Route Dose Verified Delivered Reason Notes Effectiv eness by by 9:48:57 0.9% NaCl I.V. 100 Gilmer Gilmer Per ml/hr Adrian Campbell physician RN RN 9:49:12 Oxygen etCO2 5 Gilmer Gilmer for low 02 Nasal l/min Adrian Campbell sats cannula RN RN 9:49:28 [place] [address] Gilmer Gilmer for local [place] Sprays Adrian Campbell anesthetic RN RN 9:55:18 Refer to Gilmer Gilmer for Anesthesia Adrian Campbell sedation Notes for RN RN Sedation Medications Procedure Log Time Note 9:09:32 Informed consent obtained and on chart 9:09:38 Diagnostic Cath Status : Elective 9:10:00 Patient Weight : 178.58 lbs 9:10:00 Patient Height : 64.96 inches 9:10:50 Indication : CHF 9:11:23 ACC Patient presents with Non-STEMI CCS Anginal Class 2--Slight limitation of ordinary activity. 9:12:35 ACCPatient has been prescribed/administered the following anti-anginal medication within the last 2 weeks: None 9:12:56 Procedure Status JANIA. 9:12:59 Gilmer Campbell RN sent for patient. Start room use. 9:13:00 Time tracking: Regular hours (M-F 7:00 - 5:00) 9:13:04 Plan of Care:Hemodynamics will remain stable., Cardiac rhythm will remain stable., Comfort level will be maintained., Respiratory function will remain adequate., Patient/ family verbilizes understanding of procedure., Procedure tolerated without complication., Recovers from procedure without complications.. 9:40:26 Patient received from Med II to CCL 2 Alert and oriented. Tansferred to table in Supine position. 9:40:27 Warm blankets applied, and aminata hugger turned on for patient comfort. 9:40:28 Correct patient and procedure confirmed by team. 9:40:29 ECG and BP/O2 sat monitors applied to patient. 9:40:31 Vital chart was started 9:40:36 Baseline sample Acquired. 9:40:43 Rhythm: sinus tachycardia 9:40:45 Full Disclosure recording started 9:40:50 H&P Date Dictated: 03/12/2019 New H&P dictated by physician.. 9:40:51 Pre-procedure instructions explained to patient. 9:40:52 Pre-op teaching completed and patient verbalized understanding. 9:40:53 Family unavailable. 9:41:02 Patient NPO since Midnight. 9:41:04 Is the patient allergic to Iodine/contrast media? No. 9:41:05 Was the patient premedicated? No 9:41:10 Is patient on blood thinner?No 9:41:14 Patient diabetic? Yes. 9:41:16 If diabetic: On Metformin? No 9:41:31 Previous problem with sedation/anesthesia? No ? 9:41:33 Snore? Yes 9:41:34 Sleep apnea? Yes 9:41:35 Deviated septum? No 9:41:36 Opens mouth fully? Yes 9:41:37 Sticks out tongue? Yes 9:41:39 Airway obstruction? Yes copd 9:41:51 Dentures? No ? 9:41:59 Patient pain scale 0/10 ?. 9:42:06 IV patent on arrival in left forearm with 0.9% NaCl at KVO. 9:42:18 Lab results completed and on chart. 9:42:24 Alarms reviewed by R. N. 9:42:24 Sharps counted by scrub and verified by R.N. 9:42:53 Physician arrived 9:42:53 --------ALL STOP TIME OUT------ 9:42:54 Final Timeout: patient, procedure, and site verified with staff and physician. All members of the team are in agreement. 9:43:01 Fire Safety Assessment: A--An alcohol-based skin anteseptic being used preoperatively., C--Open oxygen or nitrous oxide is being used., D--An ESU, laser, or fiber-optic light is being used. 9:43:09 Physical assessment completed. ASA score P 2 - A patient with mild systemic disease as per Ketan Graham MD. 9:43:21 2) 60-89 Mildly reduced kidney function, and other findings (as for stage 1) point to kidney disease. 9:43:58 Maximum allowable contrast dose (3.7 X eGFR X 0.75)183 ml. 9:44:02 Sedation plan: TIVA Medication:Propofol 9:44:15 Sekou Vargas CRNA present and monitoring patient for TIVA. 9:44:18 [place] Train Brakeman present for JANIA. 9:48:57 0.9% NaCl 100 ml/hr I.V. was administered by Gilmer Campbell RN; Per physician; 9:49:12 Oxygen 5 l/min etCO2 Nasal cannula was administered by Gilmer Campbell RN; for low 02 sats; 9:49:28 Hurricaine [place] 1 Sprays P.O. was administered by Gilmer Campbell RN; for local anesthetic; 9:54:36 Procedure started. 9:55:18 Refer to Anesthesia Notes for Sedation Medications was administered by Gilmer Campbell RN; for sedation; 9:57:05 JANIA started. 10:03:55 JANIA completed. 10:04:02 Procedure ended.(Physican Out) 10:04:11 Fluoroscopy time 00.00 minutes. 10:04:14 Fluoroscopy dose: 0 mGy 10:04:14 Flurop Dose total: 0 10:04:17 Dose Area Product 0 mGy/cm. 10:04:20 Contrast amount:Isovue 300 0ml. 10:04:23 Sharps counted by scrub and verified by R.N. 10:04:26 Insertion/operative site no bleeding no hematoma. 10:04:29 Post procedure rhythm: unchanged. 10:04:33 Estimated blood loss: 0 ml 10:04:34 Post procedure instruction explained to patient.Patient verbalizes understanding. 10:04:35 Patient needs reinforcement of post procedure teaching. 10:04:38 Procedure and supply charges have been captured, reviewed, submitted and are correct. 10:04:43 Procedure Complication : No complications 10:05:18 Vital chart was stopped 10:05:18 See physician's report for complete and final results. 10:05:28 Report given to Med II. 10:05:30 Patient transfered to Med II with Stretcher. 10:05:33 Procedure ended. 10:05:33 Full Disclosure recording stopped 10:05:36 End room use (Document Last) Signature Audit [place] Stage Time Signature Unsigned Intra-Procedure 03/12/2019 Briseida Oneal 10:16:32 AM RT(R) Signatures Performing Physician : Signature : Ketan Graham MD Date : Time : Monitor : Briseida Jm RT Signature : Date : Time : Nurse : Gilmer Lorigan Signature : RN Date : Time : [address] [place] [address]
--- NOTE | ~2019-03-09 | HEMODYNAMI ---
PATIENT:ERNIE VILLALBA MEDICAL RECORD: [id number] : 50 LOCATION:[facility] D.2121 ADMISSION DATE: 03/10/19 Generatedon:03/10/201913:32 Patient name: ERNIE VILLALBA Patient #: [id number] : 1950 Date of study: 03/10/2019 Page: Of Hemodynamic Procedure Report Patient Data Patient Demographics Procedure consent was obtained First Name: ERNIE Gender: Female Last Name: ORLY : 1950 Patient #: [id number] Age: 69 year(s) Race: SSN: [id number] Additional ID: [id number] Contact details Address: [address] [place] [address] State: [place] City: [place] Zip code: [address] Past Medical History Allergies Allergen Reaction Date Comments Reported Other allergy 03/10/2019 [facility] Admission Admission Data Admission Date: 03/10/2019 Admission Time: 2:48 Arrival Date: 03/10/2019 Arrival Time: 0:00 Room #: D.2121 Insurance Payor: Medicare [facility] #: [id number] Height (in.): 64.96 BSA: 1.88 (m2) Height (cm.): 165 BMI: 29.75 (kg/m2) Weight (lbs.): 178.58 Weight (kg.): 81 Medications upon Admission Medications Dosage Times Administered Last Remarks per Delivery Day Date and Time Beta Sol 25 mg (any) NANNETTE 10 mg Inhibitor (any) Lab Results Lab Result Date: 03/10/2019 Lab Result Time: 0:00 Biochemistry Name Units Result Min Max BUN mg/dl 7 --(*---)-- 7 18 Creatinine mg/dl 0.7 --(*---)-- 0.6 1.3 eGFR ml/min 88.31340 -*(----)-- 90 120 NONAFRICAN CBC Name Units Result Min Max Hematocrit % 33.9 *-(----)-- 42 54 Hemoglobin g/dl 11.5 *-(----)-- 13.5 17.5 Procedure Procedure Types Cath Procedure Diagnostic Procedure [facility] w/Coronaries w/Grafts Procedure Description Procedure Date Procedure Date: 03/10/2019 Procedure Start Time: 13:18 Procedure End Time: 13:30 Procedure Staff Name Function Ketan Graham MD Performing Physician Cici Reis RT Monitor Gilmer Campbell RN Nurse Dereje Cason RT Scrub Procedure Data Cath Procedure Fluoroscopy Diagnostic fluoroscopy Total fluoroscopy Time: 2.6 time: 2.6 min min Diagnostic fluoroscopy Total fluoroscopy dose: 512 dose: 512 mGy mGy Contrast Material Contrast Material Type Amount (ml) Isovue 300 79 Entry Location Entry Primary Successful Side Size Upsize Upsize Entry Closure Succes sful Closure Location (Fr) 1 (Fr) 2 (Fr) Remarks Device Remarks Femoral Right 5 Fr Exoseal artery Estimated blood loss: 5 ml Diagnostic catheters Device Type Used For End Catheter Placement MULTIPACK JL 4.0 5Fr Procedure catheter MULTIPACK 3DRC 5Fr Procedure catheter MULTIPACK Pigtail 5 Fr Procedure catheter Procedure Complications No complications Procedure Medications Medication Administration Route Dosage 0.9% NaCl I.V. 100 ml/hr Oxygen etCO2 Nasal cannula 2 l/min Heparin Flush Bag added to field 2 bags (1000units/500ml NS) Lidocaine 2% added to field 20 Versed I.V. 2 mg Fentanyl I.V. 100 mcg Hemodynamics Rest BSA: 1.88 (m2) HGB: 11.5 (g/dl) O2 Consumption: Estimated: 192.73 (ml/min) O2 Co nsumption indexed: Estimated:102.52 (ml/min/m) Heart Rate: 97 (bpm) Pressure Samples Time Site Value (mmHg) Purpose Heart Use Rate(bpm) 13:26 LV 128/14,21 Snapshot 91 13:26 AO 103/58(77) Pullback 89 13:26 LV 112/12,12 Pullback 89 Gradients Valve Time Site 1 Site 2 Mean SEP/DFP Peak To Heart Use (mmHg) (sec/min) Peak Rate (mmHg) (bpm) Aortic 13:26 LV AO 8 20 9 89 112/12,12 103/58(77) Calculations Valve P-P Mean Valve Index Valve Source Name Gradient Area Flow (cm2) Aortic 9 8 9 8 Snapshots Pre Cath Intra NCS Post Cath Vital Signs Time Heart Resp SPO2 etCO2 NIBP (mmHg) Rhythm Pain Sedation Rate (ipm) (%) (mmHg) Status Level (bpm) 12:54:27 94 27 100 17.1 135/68(112) NSR 0 (11) 10(A) , No pain 12:58:46 92 30 100 0 127/74(99) NSR 0 (11) 10(A) , No pain 13:03:03 93 20 99 3.7 122/69(94) NSR 0 (11) 10(A) , No pain 13:07:24 91 17 99 9.7 126/65(99) NSR 0 (11) 10(A) , No pain 13:11:40 92 20 98 27.6 118/68(89) NSR 0 (11) 10(A) , No pain 13:15:56 91 18 98 14.9 122/71(89) NSR 0 (11) 9(A) , No pain 13:20:12 91 19 97 25.4 115/67(90) NSR 0 (11) 9(A) , No pain 13:24:26 90 18 98 0 110/57(84) NSR 0 (11) 10(A) , No pain 13:28:38 90 15 97 9.7 115/65(89) NSR 0 (11) 10(A) , No pain Medications Time Medication Route Dose Verified Delivered Reason Notes Eff ectiveness by by 12:56:18 0.9% NaCl I.V. 100 Gilmer Gilmer Per ml/hr Adrian Campbell physician RN RN 12:56:30 Oxygen etCO2 2 Gilmer Gilmer for low 02 Nasal l/min Lorigan Lorigan sats cannula RN RN 12:56:42 Heparin Flush added 2 Gilmer Gilmer used for Bag to bags Lorigan Adrian procedure (1000units/500ml field RN RN NS) 12:56:53 Lidocaine 2% added 20ml Gilmer Gilmer for local to vial Lorigan Lorigan anesthetic field RN RN 13:17:05 Versed I.V. 2 mg Gilmer Gilmer for Lorigan Lorigan sedation RN RN 13:17:15 Fentanyl I.V. 100 Gilmer Gilmer for mcg Lorigan Lorigan sedation RN elementary assistant teacher Log Time Note 12:31:24 Diagnostic Cath Status : Elective 12:35:02 2) 60-89 Mildly reduced kidney function, and other findings (as for stage 1) point to kidney disease. 12:35:22 Maximum allowable contrast dose (3.7 X eGFR X 0.75)183 ml. 12:35:38 Dereje Cason RT(R) (CV) sent for patient. Start room use. 12:35:42 Time tracking: Regular hours (M-F 7:00 - 5:00) 12:35:48 Plan of Care:Hemodynamics will remain stable., Cardiac rhythm will remain stable., Comfort level will be maintained., Respiratory function will remain adequate., Patient/ family verbilizes understanding of procedure., Procedure tolerated without complication., Recovers from procedure without complications.. 12:41:50 Informed consent obtained and on chart 12:45:43 Patient received from Med II to CCL 1 Alert and oriented. Tansferred to table in Supine position. 12:45:45 Warm blankets applied, and aminata hugger turned on for patient comfort. 12:45:46 Correct patient and procedure confirmed by team. 12:53:05 ECG and BP/O2 sat monitors applied to patient. 12:53:06 Vital chart was started 12:53:07 Baseline sample Acquired. 12:53:10 Rhythm: sinus rhythm 12:53:11 Full Disclosure recording started 12:53:19 H&P Date Dictated: 03/10/2019 Within 30 days and on chart.. 12:53:24 Pre-procedure instructions explained to patient. 12:53:24 Pre-op teaching completed and patient verbalized understanding. 12:53:30 Family in waiting room. 12:54:19 Patient NPO since Midnight. 12:54:29 Patient allergic to Other allergyLEVAQUIN 12:54:32 Is patient on blood thinner?Yes 12:54:35 ACC The patient was administered the following blood thiners within the last 24 hours: ACCBrilinta 12:54:38 Patient diabetic? Yes. 12:54:39 If diabetic: On Metformin? No 12:55:10 Previous problem with sedation/anesthesia? No ? 12:55:11 Snore? Yes 12:55:13 Sleep apnea? Yes 12:55:14 Deviated septum? No 12:55:16 Opens mouth fully? Yes 12:55:17 Sticks out tongue? Yes 12:55:19 Airway obstruction? No ? 12:55:22 Dentures? No ? 12:55:26 Pre procedure: right dorsailis pedis pulse 1+ Palpable, but thready & weak; easily obliterated 12:55:31 Patient pain scale 0/10 ?. 12:55:37 IV patent on arrival in right antecubital with 0.9% NaCl at [facility]. 12:56:12 Lab Result : BUN 7 mg/dl 12:56:12 Lab Result : eGFR NONAFRICAN 88.34122 ml/min 12:56:12 Lab Result : Creatinine 0.7 mg/dl 12:56:12 Lab Result : Hemoglobin 11.5 g/dl 12:56:12 Lab Result : Hematocrit 33.9 % 12:56:15 Lab results completed and on chart. 12:56:18 0.9% NaCl 100 ml/hr I.V. was administered by Gilmer Campbell RN; Per physician; 12:56:19 Right groin area was prepped with chlora-prep and draped in sterile fashion 12:56:20 Alarms reviewed by R. N. 12:56:21 Sharps counted by scrub and verified by R.N. 12:56:25 Use device set Femoral Dx 12:56:26 ACIST Syringe (96801) opened to sterile field. 12:56:27 Bag Decanter (2002S) opened to sterile field. 12:56:28 ACIST Hand Control (38493) opened to sterile field. 12:56:29 ACIST Manifold (33746) opened to sterile field. 12:56:30 Oxygen 2 l/min etCO2 Nasal cannula was administered by Gilmer Campbell RN; for low 02 sats; 12:56:30 Tegaderm 4 x 4 (1626W) opened to sterile field. 12:56:31 Medline Cath Pack ([id number]) opened to sterile field. 12:56:32 DIAGNOSTIC Multipack 5Fr catheter set ([id number]) opened to sterile field. 12:56:33 SHEATH 5FR Drake (NZY743) opened to sterile field. 12:56:34 EMERALD Guide Wire (499-579) opened to sterile field. 12:56:42 Heparin Flush Bag (1000units/500ml NS) 2 bags added to field was administered by Gilmer Campbell RN; used for procedure; 12:56:47 Arrival Date: 03/10/2019 12:00:00 AM 12:56:53 Lidocaine 2% 20ml vial added to field was administered by Gilmer Campbell RN; for local anesthetic; 12:56:59 Insurance Payor : Medicare 12:57:36 Patient Weight : 178.58 lbs 12:57:39 Patient Height : 64.96 inches 12:57:51 Procedure type changed to Cath procedure, Diagnostic procedure, LHC, LHC w/Coronaries w/Grafts 13:11:41 --------ALL STOP TIME OUT------ 13:11:42 Final Timeout: patient, procedure, and site verified with staff and physician. All members of the team are in agreement. 13:11:43 Right groin site verified by team. 13:11:47 Fire Safety Assessment: A--An alcohol-based skin anteseptic being used preoperatively., C--Open oxygen or nitrous oxide is being used., D--An ESU, laser, or fiber-optic light is being used. 13:11:55 Physical assessment completed. ASA score P 2 - A patient with mild systemic disease as per Ketan Graham MD. 13:12:04 Sedation plan: IV Moderate Sedation Medication:Versed, Fentanyl 13:12:21 Zero performed for pressure channel P1 13:17:05 Versed 2 mg I.V. was administered by Gilmer Campbell RN; for sedation; 13:17:15 Fentanyl 100 mcg I.V. was administered by Gilmer Campbell RN; for sedation; 13:17:43 Procedure started. 13:18:01 Local anesthetic to right femoral artery with Lidocaine 2% by Ketan Graham MD.INITIAL ACCESS ONLY 13:19:48 A 5 Fr sheath was inserted into the Right Femoral artery 13:20:27 A MULTIPACK JL 4.0 5Fr catheter was advanced over the wire and used for Procedure. 13:21:34 LCA angiography performed. 13:21:35 Catheter removed. 13:22:09 A MULTIPACK 3DRC 5Fr catheter was advanced over the wire and used for Procedure. 13:22:24 RCA angiography performed. 13:23:10 SVG to RCA angiography performed. 13:23:49 CURRY to LAD angiography performed. 13:23:58 Catheter removed. 13:24:08 A MULTIPACK Pigtail 5 Fr catheter was advanced over the wire and used for Procedure. 13:25:05 LV gram done using DE LA CRUZ 13:25:09 Injector settings: Ml/sec: 10, Volume: 20, 13:26:28 LV hemodynamics recorded. 13:26:40 EF : 25 % 13:26:42 Catheter removed. 13:26:44 EXOSEAL 5Fr (EX500) opened to sterile field. 13:27:36 Sheath removed intact; hemostasis achieved with Exoseal to the Right Femoral artery. 13:27:38 Procedure ended.(Physican Out) 13:28:22 Fluoroscopy time 02.60 minutes. 13:28:26 Flurop Dose total: 512 13:28:26 Fluoroscopy dose: 512 mGy 13:28:35 Dose Area Product 99578 mGy/cm. 13:28:47 Contrast amount:Isovue 300 79ml. 13:28:49 Maximum allowable dose exceeded? No. 13:28:51 Sharps counted by scrub and verified by R.N. 13:28:59 Post-op/insertion site Right Femoral artery dressed using a 4 x 4 and Tegaderm. 13:29:02 Post-procedure physical assessment completed. ASA score P 2 - A patient with mild systemic disease as per Ketan Graham MD. 13:29:06 Post procedure rhythm: sinus rhythm 13:29:11 Estimated blood loss: 5 ml 13:29:12 Post procedure instruction explained to patient.Patient verbalizes understanding. 13:29:13 Patient needs reinforcement of post procedure teaching. 13:29:57 Procedure and supply charges have been captured, reviewed, submitted and are correct. 13:29:59 Procedure Complication : No complications 13:30:01 Vital chart was stopped 13:30:02 See physician's report for complete and final results. 13:30:05 Report given to Med II. 13:30:09 Patient transfered to Med II with Bed. 13:30:12 Procedure ended. 13:30:12 Full Disclosure recording stopped 13:30:15 End room use (Document Last) Device Usage Item Name Manufacture Quantity Catalog Hospital Part Current Minimal L ot# / Number Charge Number Stock Stock Serial# Code ACIST Acist 1 41027 539256 919853 070389 20 DDx Media (28248) Systems Inc Bag Microtek 1 2001S 534692 50548 501486 5 Decanter Medical Inc. (2001S) ACIST Hand Acist 1 15166 752263 325372 141010 5 Control Medical (69123) Systems Inc ACIST Acist 1 66826 908086 846583 123439 5 Manifold Medical (31486) Systems Inc Tegaderm 4 3M 1 1626W 511004 822709 189878 5 x 4 (1626W) Medline Medline 1 [id number] 869466 99194 685025 5 Cath Pack ([id number]) DIAGNOSTIC Cardinal 1 QL1588 840376 31055 684771 30 MultipKinems Learning Games 5Fr catheter set (TD7336) SHEATH 5FR Terumo 1 HWC608 954441 083077 406146 5 Drake (LVE350) EMERALD Cardinal 1 990-706 852844 717456 368585 5 Guide Wire Health (043-687) MULTIPACK Cardinal 1 900261 5 JL 4.0 5Fr Health catheter MULTIPACK Cardinal 1 113807 5 3DRC 5Fr Health catheter MULTIPACK Cardinal 1 954709 5 Pigtail 5 Health Fr catheter EXOSEAL 5Fr Cardinal 1 EX500 914658 410236 880434 10 (EX500) Health Signature Audit [place] Stage Time Signature Unsigned Intra-Procedure 03/10/2019 Cici Reis 1:32:26 PM RT(R) Signatures Performing Physician : Signature : Ketan Graham MD Date : Time : Monitor : Cici Reis Signature : RT Date : Time : Nurse : Gilmer Campbell Signature : RN Date : Time : [facility] [address] [place] [address]
[~2019-03-09 23:44] MED LIST changes: +IPRAT-ALBUT 0.5-3 ML INH; +MUPIROCIN22 GM TOPICAL; +[UNRECOGNIZED DRUG - OTHER] TOPICAL
[2019-03-09] MEDS ORDERED: LIPITOR40 MG PO ×2 (23:48→23:50)
[2019-03-09] MEDS ORDERED: BAYER CHEWABLE81 MG PO (23:48)
[2019-03-09] MEDS ORDERED: PROZAC20 MG PO (23:49)
[2019-03-09] MEDS ORDERED: DIFLUCAN150 MG PO (23:49)
[2019-03-09] MEDS ORDERED: FUROSEMIDE40 MG PO (23:51)
[2019-03-09] MEDS ORDERED: GABAPENTIN100 MG PO (23:51)
[2019-03-09] MEDS ORDERED: LEVAQUIN750 MG PO (23:52)
[2019-03-09] MEDS ORDERED: NOVOLOG100 UNIT/1 SC (23:52)
[2019-03-09] MEDS ORDERED: LISINOPRIL2.5 MG PO (23:52)
[2019-03-09] MEDS ORDERED: LANTUS SOL100 UNIT/1 SC (23:52)
[2019-03-09] MEDS ORDERED: MECLIZINE HCL25 MG PO (23:53)
[2019-03-09] MEDS ORDERED: LOPRESSOR25 MG PO (23:53)
[2019-03-09] MEDS ORDERED: NYSTATIN1 PWD TOPICAL (23:53)
[2019-03-09] MEDS ORDERED: ULTRACET (23:54)
[2019-03-09] MEDS ORDERED: K-DUR20 MEQ PO (23:54)
[2019-03-09] MEDS ORDERED: BRILINTA90 MG PO (23:54)
[2019-03-09] MEDS ORDERED: RANEXA500 MG PO (23:54)
[2019-03-09] MEDS ORDERED: VENTOLIN INHALER (23:55)
[2019-03-10] VITALS (7 sets, daily range): BP systolic 99–120; BP diastolic 49–62; Ht 165.1 cm; Wt 81.9 kg
[2019-03-10 00:32] LABS: BASOPHILS 0.6 % (0-2); EOSINOPHILS 0.2 % (0-7); HEMOGLOBIN 11.5 g/dL (12-16); IMMATURE GRANULOCYTES 0.3 % (0-5); LYMPHOCYTES 11.2 % (15-50); MCH 31.3 pg (26.0-34.0); MCHC 34.8 g/dL (31.0-37.0); MCV 89.7 fL (80.0-100.0); MONOCYTES 8.5 % (2-11); NEUTROPHILS 79.2 % (40-80); PLATELET COUNT 477 10x3/uL (130-400); RBC 3.68 10x6/uL (4.00-5.40); RDW 13.2 % (11.5-14.5); WBC 12.6 10x3/uL (4.8-10.8)
[2019-03-10 00:46] LABS: KETONE - SERUM NEGATIVE (NEGATIVE)
[2019-03-10 00:49] LABS: APTT 22.7 SECONDS (22.8-39.4); D-DIMER-QUANTITATIVE 1.96 ug/mLFEU (0.20-0.54); INR 1.11 (0.85-1.17); PROTIME 14.3 SECONDS (11.6-15.0)
[2019-03-10 01:03] LABS: ALBUMIN 2.3 g/dL (3.4-5.0); ALKALINE PHOSPHATASE 138 U/L (46-116); ALT (SGPT) 8 U/L (10-68); BILIRUBIN - TOTAL 0.95 mg/dL (0.2-1.3); CALCIUM 8.5 mg/dL (8.5-10.1); CARBON DIOXIDE 26.7 mmol/L (21.0-32.0); CHLORIDE - SERUM 98 mmol/L (98-107); CKMB 0.7 U/L (0.0-3.6); CREATINE KINASE 25 UL (21-215); CREATININE - SERUM 0.9 mg/dL (0.6-1.3); MAGNESIUM - SERUM 1.5 mg/dL (1.8-2.4); POTASSIUM - SERUM 4.4 mmol/L (3.5-5.1); PRO BNP 13023 pg/mL (0-125); PROTEIN - SERUM 6.6 g/dL (6.4-8.2); SODIUM 131 mmol/L (136-145); THYROID STIMULATING HORMONE 2.04 uIU/mL (0.36-3.74); UREA NITROGEN 8 mg/dL (7-18); eGFR NON AFRICAN AMERICAN 66 mL/min (90-120)
[2019-03-10 01:06] LABS: CALC OSMOLALITY 278 mosm/kg (275-300); GLUCOSE 424 mg/dL (74-106)
[2019-03-10 01:07] LABS: TROPONIN-I 1.015 ng/mL (0.000-0.060)
[2019-03-10 01:50] LABS: APPEARANCE HAZY (CLEAR); COLOR YELLOW (YELLOW); GLUCOSE 1000 mg/dL (NEGATIVE); KETONE NEGATIVE (NEGATIVE); NITRITE NEGATIVE (NEGATIVE); PROTEIN NEGATIVE (NEGATIVE); SPECIFIC GRAVITY 1.015 (1.005-1.020)
[2019-03-10 01:51] LABS: BILIRUBIN NEGATIVE (NEGATIVE); RED CELLS - URINE 0-5 /hpf (0-5); WHITE CELLS - URINE NSEEN /hpf (0-5)
--- NOTE | 2019-03-10 01:57 | NUR ---
PT TRANSPORTED TO CT VIA STRETCHER. NO DISTRESS NOTED. VSS. PT STATES "I FEEL SO MUCH BETTER" 2ND IV STARTED, 20G NEEDED FOR CT SCAN
--- NOTE | 2019-03-10 02:31 | NUR ---
FSBS 355 ADVISED EDP. AWAITING FURTHER ORDERS
--- NOTE | 2019-03-10 02:36 | NUR ---
PT LAYING IN BED. EYES ARE CLOSE, RESPIRATIONS ARE EVEN AND UNLABORED. NO DISTRESS NOTED. PT WAS EASILY WOKEN WITH VERBAL STIMULI. COLOR WNL. VSS. WILL CONTINUE TO MONITOR.
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
--- NOTE | 2019-03-10 04:07 | NUR ---
MENTAL HEALTH NURSE ASSESSMENT COMPLETE. LOW PROBABILITY AND CLEARED TO GO TO ROOM.
--- NOTE | 2019-03-10 04:30 | NUR ---
PT ARIVED VIA STRETCHER FROM ER WITH DX SOB, CHF AND ELEVATED TROPONIN. PT ALERT AND ORIENTED TO PERSON, PLACE AND TIME. O2 2LNC. IV'S TO BILAT FA SL. STAGE 2 NOTED TO COOCYX 3 CM IN DIAMETER. DEBORAH'S APPLIED. PT IS A POOR HISTORIAN. SR UP X2, CALL LIGHT WITHIN REACH.
[2019-03-10] MEDS ORDERED: ALBUTEROL SULF8.5 GM INH (04:38)
[2019-03-10] MEDS ORDERED: ISOSORBIDE DINI20 MG PO (04:38)
[2019-03-10] MEDS ORDERED: LISINOPRIL10 MG PO (04:39)
[2019-03-10] MEDS ORDERED: ISOSORBIDE MONO60 M1 PO (04:39)
--- NOTE | 2019-03-10 06:37 | NUR ---
AM FSBS 257. 10 UNITS HUMALOG GIVEN SUB-Q TO UPPER R ARM. NEEDS MET; WILL CONTINUE TO MONITOR
[2019-03-10 07:00] LABS: CKMB 0.9 U/L (0.0-3.6); CREATINE KINASE 43 UL (21-215)
[2019-03-10 07:05] LABS: TROPONIN-I 1.221 ng/mL (0.000-0.060)
--- NOTE | 2019-03-10 08:26 | NUR ---
ASSESSMENT DONE. DENIES NEEDS
[2019-03-10 08:57] LABS: BASOPHILS 0.4 % (0-2); EOSINOPHILS 1.5 % (0-7); HEMATOCRIT 33.9 % (36.0-48.0); HEMOGLOBIN 11.5 g/dL (12-16); IMMATURE GRANULOCYTES 0.3 % (0-5); LYMPHOCYTES 20.9 % (15-50); MCH 30.6 pg (26.0-34.0); MCHC 33.9 g/dL (31.0-37.0); MCV 90.2 fL (80.0-100.0); MEAN PLATELET VOLUME 10.2 fL (7.4-10.4); MONOCYTES 11.7 % (2-11); NEUTROPHILS 65.2 % (40-80); PLATELET COUNT 487 10x3/uL (130-400); RBC 3.76 10x6/uL (4.00-5.40); RDW 13.3 % (11.5-14.5); WBC 11.7 10x3/uL (4.8-10.8)
[2019-03-10 09:03] LABS: CALC OSMOLALITY 274 mosm/kg (275-300); CALCIUM 8.4 mg/dL (8.5-10.1); CARBON DIOXIDE 28.5 mmol/L (21.0-32.0); CHLORIDE - SERUM 101 mmol/L (98-107); CREATININE - SERUM 0.7 mg/dL (0.6-1.3); POTASSIUM - SERUM 3.8 mmol/L (3.5-5.1); SODIUM 136 mmol/L (136-145); UREA NITROGEN 7 mg/dL (7-18); eGFR NON AFRICAN AMERICAN 88 mL/min (90-120)
[2019-03-10 09:04] LABS: GLUCOSE 184 mg/dL (74-106)
--- NOTE | 2019-03-10 12:42 | NUR ---
TO RACK PULLER PER BED
[2019-03-10 13:02] LABS: CKMB 1.2 U/L (0.0-3.6); CREATINE KINASE 30 UL (21-215)
[2019-03-10 13:07] LABS: TROPONIN-I 1.345 ng/mL (0.000-0.060)
--- NOTE | 2019-03-10 13:45 | NUR ---
RETURN FROM CARD SERVICES SPECIALIST PER BED, RT MARY LINTONG.PULSE PALP
[2019-03-10 15:46] LABS: % SATURATION 12 % (15-55); IRON 23 ug/dl (35-150); TOTAL IRON BIND CAPACITY 189 ug/dl (260-445); UNSAT IRON BIND CAPACITY 166 ug/dl (150-375)
--- NOTE | 2019-03-10 17:02 | NUR ---
WITHOUT CHANGES OR DISTRESS AT THIS TIME. DENIES NEEDS
--- NOTE | 2019-03-10 19:50 | NUR ---
REPORT RECIEVED AND ROUNDING COMPLETE. PATIENT LAYING IN BED EYES CLSOED AND BREATHING SHALLOW AND ULABORED. PATIENT HAS A RIGHT AND LEFT FOREARM PIV THAT ARE SALINE LOCKED AT THIS TIME. PATIENT HAS A RIGHT GROIN DERSSING THAT IS C/D/I AND SOFT TO PALPATION. CALL LIGHT WITHIN REACH AND HOB ELEVATED 35* BED IN LOWEST LOCKED POSITION.
--- NOTE | 2019-03-11 01:15 | NUR ---
PATIENT CALLED ME INTO ROOM TO TELL ME SHE COULD NOT BREATH, ASKED HER IF ANYTHING ELSE WAS GOING ON AND SHE STATES SHE THOUGTH SHE WAS HAVING AN ANXIETY ATTACK AND ASKED IF SHE HAD ANYTHING SHE COULD THAT. GAVE HER MEDICATIONS PER MAR. NO OTHER NEEDS AT THIS TIME CALL LIGHT WITH IN REACH AND EBD IN LOWEST POSITION.
[2019-03-11 04:00] VITALS: BP 128/73
--- NOTE | 2019-03-11 04:14 | NUR ---
I have reviewed this patient and I concur with the Shift Assessment completed by the Licensed Practical Nurse today this shift.
--- NOTE | 2019-03-11 06:30 | NUR ---
ASSESSMENT DONE. DENIES NEEDS
[2019-03-11 06:40] LABS: ANION GAP 10.5 mmol/L (8-16); CALCIUM 8.8 mg/dL (8.5-10.1); CARBON DIOXIDE 28.9 mmol/L (21.0-32.0); CREATININE - SERUM 0.9 mg/dL (0.6-1.3); POTASSIUM - SERUM 4.4 mmol/L (3.5-5.1)
[2019-03-11 07:03] LABS: BASOPHILS 0.5 % (0-2); EOSINOPHILS 1.8 % (0-7); HEMOGLOBIN 11.4 g/dL (12-16); IMMATURE GRANULOCYTES 0.3 % (0-5); LYMPHOCYTES 18.6 % (15-50); MCH 30.5 pg (26.0-34.0); MCHC 33.5 g/dL (31.0-37.0); MCV 90.9 fL (80.0-100.0); MEAN PLATELET VOLUME 10.1 fL (7.4-10.4); MONOCYTES 9.5 % (2-11); NEUTROPHILS 69.3 % (40-80); PLATELET COUNT 500 10x3/uL (130-400); RBC 3.74 10x6/uL (4.00-5.40); RDW 13.5 % (11.5-14.5); WBC 11.4 10x3/uL (4.8-10.8)
[2019-03-11 08:05] VITALS: BP 112/59
--- NOTE | 2019-03-11 09:29 | OP ---
PATIENT NAME: ERNIE VILLALBA MEDICAL RECORD: [id number] :50 LOCATION:D.M2 D.2121 ADMISSION DATE:03/10/19 SURGEON: ALICIA ALVA MD DATE OF OPERATION: 03/10/2019 PROCEDURE: Left heart catheterization, selective coronary angiography, right femoral artery approach. CATHETERS: A 5-English sheath, 5/4 left and right Mike, 5/4 pig. The procedure was well tolerated. The patient returned to veras, sheath removed. ExoSeal device placed. FINDINGS: Left ventriculography in 30-degree [place]Z view: Global hypokinesis. Overall reduced EF 30%. CORONARY ANATOMY: LEFT MAIN: Left main is free of disease. LAD: Fills for a short period of time and is seen filling via competitive flow. CIRCUMFLEX: Has 1 large OM, it is totally occluded as described previously. This fills via right to left collaterals. RIGHT CORONARY ARTERY: Totally occluded in its proximal portion. BYPASS GRAFTS: 1. CURRY to LAD is widely patent with good flow distally. 2. Saphenous vein graft to the right is widely patent. IMPRESSION: Cardiomyopathy with EF 30%, starting to explain majority of her symptomatology. We will add Aldactone. If symptomatology does not improve, could consider a switch from NANNETTE inhibitor to Entresto. TRANSINT:[id number] Voice Confirmation ID: [id number] DOCUMENT ID: [id number] ALICIA ALVA MD at 0929 CC: [id number] DICTATION DATE: 03/10/19 1337 BLOCKER AND POLISHER GOLD WHEEL: 03/10/19 1351 ADM IN [place] [address] [place] [address]
--- NOTE | 2019-03-11 09:29 | CN ---
PATIENT NAME:ERNIE VILLALBA MEDICAL RECORD: [id number] : 50 LOCATION:D. D.2121 ADMIT DATE: 03/10/19 ACCOUNT: [id number] CONSULTING PHYSICIAN: ALICIA ALVA MD REFERRING PHYSICIAN: EMMANUEL AUSTIN MD DATE OF CONSULTATION: 03/10/2019 HISTORY OF PRESENT ILLNESS: A 69-year-old female with a known history of coronary artery disease, status post intervention via Dr. Galvan. She has a history of hypertension, diabetes mellitus, admitted with myopathic symptomology, shortness of breath, dyspnea. Previous EF via Dr. Galvan, angiography was normal. Also noted to have elevated cardiac enzymes consistent with NSTEMI, difficult to say if it is type 1 versus type 2 with strain. Additionally, markedly hyperglycemic. We are asked to see her concerning her cardiovascular status. PAST MEDICAL HISTORY: Includes: 1. History of diabetes mellitus. 2. Hypertension. 3. Hyperlipidemia. MEDICATIONS: Include insulin per scale, meclizine 25 mg q.6 hours p.r.n., Lasix 40 every day, Neurontin 200 b.i.d., Prozac 60 every day, aspirin 81 every day, Ranexa 500 b.i.d., metoprolol 25 b.i.d., lisinopril 10 every day, Imdur 20 mg p.o. t.i.d., atorvastatin 40 every day, Brilinta 90 every day. SOCIAL HISTORY: Nonsmoker, nondrinker, has had difficult ADLs over the past few months. No set exercise program. REVIEW OF SYSTEMS: The patient reports easy bruising but reports no swollen glands. The patient reports no fever, no night sweats, no significant weight gain, no significant weight loss. No significant exercise tolerance. The patient reports no dry eyes, no irritation, no vision change. Patient reports no difficulty hearing and no ear pain. Patient reports no frequent nose bleeds or nose and sinus problems. Patient reports on arm pain on exertion. No shortness of breath while lying down. No history of heart murmur. Patient reports no cough, no wheezing or coughing up blood. Patient reports no abdominal pain, no vomiting. Normal appetite. No diarrhea and not vomiting blood. No nausea and no constipation. Patient reports no incontinence. No difficulty urinating. No hematuria. No increased frequency. Patient reports no muscle aches. No weakness, no arthralgias, no back pain. No swelling of the extremities. Patient reports no abnormal mole, no jaundice, no rashes. Reports no loss of consciousness. No weakness and no numbness. No seizures, dizziness, or headaches. The patient reports no depression, no sleep disturbance, feeling safe in a relationship and no alcohol abuse. Patient reports on fatigue. Reports no runny nose or sinus pressure. No itching, no hives, and no frequent sneezing. PHYSICAL EXAMINATION: GENERAL: Chronically ill-appearing female with no acute distress. VITAL SIGNS: Blood pressure 102/60, pulse 81 and regular. HEENT: Normocephalic, atraumatic. NECK: No bruits are noted. HEART: Regular, II/ systolic ejection murmur. LUNGS: Diminished air movement in both bases. CONSULT REPORT [id number] ERNIE VILLALBA ABDOMEN: Soft, nontender. EXTREMITIES: Pulses are decreased, 1+ with no edema. DIAGNOSTIC DATA: ECG shows nonspecific ST-T changes anteriorly. IMPRESSION: NSTEMI, type 1 versus type 2. PLAN: For angiography, intervention based on the above. TRANSINT:[id number] Voice Confirmation ID: [id number] DOCUMENT ID: [id number] ALICIA ALVA MD at 0929 CC: [id number] DICTATION DATE: 03/10/19 0852 PHOTO BOOTH OPERATOR: 03/10/19 0902 [place] [address]
[2019-03-11 12:25] VITALS: BP 100/49
--- NOTE | 2019-03-11 13:59 | NUR ---
I have reviewed this patient and I concur with the Shift Assessment completed by the Licensed Practical Nurse today this shift.
[2019-03-11 14:46] VITALS: BP 109/56
--- NOTE | 2019-03-11 17:28 | NUR ---
WITHOUT CHANGES OR DISTRESS NOTED AT THIS TIME. DENIES NEEDS
--- NOTE | 2019-03-11 19:15 | NUR ---
PT LAYING ON RIGHT SIDE IN BED WITH EYES OPEN. PT ON 2L O2 NC. PT COMPLAINS OF SOB AT TIMES BUT STATES WORSE PAIN IS THE SORE ON HER COCCYX AREA. CLEANED AREA AND PLACED A MOISTURE BARRIER. SMALL STAGE 2 NOTED. WITH 2 SMALL SORES AND EXCORIATION. PT DENIES ANY OTHER NEEDS. NO S/S OF DISTRESS. NAME AND DATE PLACED ON BOARD. WILL CPOC
[2019-03-11 20:00] VITALS: BP 99/61
--- NOTE | 2019-03-11 22:14 | NUR ---
NIGHT MEDICATIONS GIVEN. PT VERBALIZED UNDERSTANDING IN MEDICATIONS. LANTUS GIVEN ORDERED. AND REG INSULIN NOT GIVEN AT THIS TIME DUE TO PT FEAR OF IT DROPPING. PT COCCYX CLEANED AND MEPILEX PLACED. PT HAS NO S/S OF DISTRESS. SNACK PROVIDED. WILL CPOC
[2019-03-12] VITALS: BP 123/67
--- NOTE | 2019-03-12 | NUR ---
PT VERBALIZED UNDERSTANDING THAT NPO AFTER MIDNIGHT.
--- NOTE | 2019-03-12 01:05 | NUR ---
PT CALLED COMPLAINING OF DYSPNEA. GAVE PT LASIX EARLY AND GAVE AN ATIVAN ORDERED. RIGHT LOWER LOBE DIMINISHED. FAINT AIRFLOW THROUGH LOBE. PT OTHER [place] CLEAR BREATH SOUNDS. SHALLOW BREATHS. O2 SAT IS 97 ON 2L PT BED LOW AND CALL LIGHT IN REACH. WILL CPOC
--- NOTE | 2019-03-12 03:17 | NUR ---
PT CALLED. INCONT A LARGE AMOUNT OF URINE. ASSISTED PT TO CHAIR. CLEANED PT AND CHANGED BED. PT NOW LAYING IN BED WITH NO S/S OF DISTRESS. RIGHT FOREARM IV RED AND CAUSING PAIN. REMOVED IV WITH CATH INTACT. 2L O2 NC. WILL CPOC
[2019-03-12 04:00] VITALS: BP 113/65
[2019-03-12 05:34] LABS: BASOPHILS 0.4 % (0-2); EOSINOPHILS 1.5 % (0-7); HEMATOCRIT 34.2 % (36.0-48.0); HEMOGLOBIN 11.6 g/dL (12-16); IMMATURE GRANULOCYTES 0.4 % (0-5); LYMPHOCYTES 15.1 % (15-50); MCH 30.7 pg (26.0-34.0); MCHC 33.9 g/dL (31.0-37.0); MCV 90.5 fL (80.0-100.0); MEAN PLATELET VOLUME 9.8 fL (7.4-10.4); NEUTROPHILS 73.6 % (40-80); PLATELET COUNT 481 10x3/uL (130-400); RBC 3.78 10x6/uL (4.00-5.40); RDW 13.4 % (11.5-14.5); WBC 11.4 10x3/uL (4.8-10.8)
[2019-03-12 05:55] LABS: ANION GAP 11.9 mmol/L (8-16); CALCIUM 8.5 mg/dL (8.5-10.1); CARBON DIOXIDE 28.9 mmol/L (21.0-32.0); CREATININE - SERUM 0.9 mg/dL (0.6-1.3); POTASSIUM - SERUM 3.8 mmol/L (3.5-5.1)
--- NOTE | 2019-03-12 06:15 | NUR ---
PT RESTING IN BED WITH EYES CLOSED. PROTONIX NOT GIVEN R/T NPO AFTER MIDNIGHT. PT FSBS IS 141 NO INSULIN NEEDED PER SLIDING SCALE. PT WILL CALL FOR ASSIST WHEN NEEDED. AROUSES WHEN NURSE WALKS INTO ROOM. NO S/S OF DISTRESS. WILL CPOC
[2019-03-12 07:58] VITALS: BP 125/68
--- NOTE | 2019-03-12 10:31 | NUR ---
ARRIVE BACK TO ROOM VIA BED FROM HEAD RESIDENT FOR JANIA. SEDATED. AROUSES TO STIMULI. BP-115/58, HR-76 SINUS RHYTHM, O2-95% WITH 2.5L NC. CONTINUE TO MONITOR. CONTINUE PLAN OF CARE AND SAFETY PRECAUTIONS.
--- NOTE | 2019-03-12 12:22 | MORECARE ---
CASE MANAGEMENT DISCHARGE SUMMARY PATIENT: ERNIE VILLALBA UNIT: [id number] ADM DATE: 03/10/19 AGE: 69 : 50 SEX: F ROOM/BED: D.2121 AUTHOR: LAURIE ALANIS PHYSICIAN: REFERRING PHYSICIAN: EMMANUEL AUSTIN MD DATE OF SERVICE: 03/12/19 Discharge Plan Patient Name: ERNIE [facility]ILLALBA [facility] [facility] 1950 Planned Disposition: Acute Care Hospital Anticipated Discharge Date: 03/12/19 Discharge Date: Expected LOS: 2 Initial Reviewer: [email or web address] Initial Review Date: 03/12/2019 Generated: 03/12/19 1:21 pm DCPIA - Discharge Planning Initial Assessment Updated by [email or web address]: Abiodun Burns on 03/12/19 12:20 pm * Is the patient Alert and Oriented? Yes * How many steps to enter\exit or inside your home? NONE * PCP DR. DOROTHY FUENTES * Pharmacy [facility]. * Preadmission Environment Home with Family * ADLs Partial Dependent * Partial ADLs (Assistance needed) Transfers * Equipment Bedside Commode Shower Chair Walker * Other Equipment NO MEDICAL EQUIPMENT PROVIDER PREFERENCE * List name and contact numbers for known caregivers / representatives who currently or will assist patient after discharge: HAYDEN ORLY, DTR, GRAND PACO DTR, * Verbal permission to speak to the caregivers and representatives has been obtained from the patient. Yes * Community resources currently utilized None * Please name any agencies selected above. NONE * Additional services required to return to the preadmission environment? Yes * Can the patient safely return to the preadmission environment? Yes * Has this patient been hospitalized within the prior 30 days at any hospital? Yes Patient Name: ERNIE VILLALBA Page [phone] at 1222 All edits/amendments must be made on the electronic document DICTATION DATE: 03/12/19 1221 DRAWER IN DOBBY LOOM: JOSÉ LUIS 03/12/19 1221 RPT#: [id number] DC DATE: STATUS: ADM IN [facility] [address] [place] [address] END OF REPORT
--- NOTE | 2019-03-12 12:39 | MORECARE ---
CASE MANAGEMENT DISCHARGE SUMMARY PATIENT: ERNIE VILLALBA UNIT: [id number] ADM DATE: 03/10/19 AGE: 69 : 50 SEX: F ROOM/BED: D.3101 AUTHOR: ZEKE,LAURIE PHYSICIAN: REFERRING PHYSICIAN: EMMANUEL AUSTIN MD DATE OF SERVICE: 03/12/19 Discharge Plan Patient Name: ERNIE VILLALBA [facility] [facility] 1950 Planned Disposition: Acute Care Hospital Anticipated Discharge Date: 03/12/19 Discharge Date: Expected LOS: 2 Initial Reviewer: [email or web address] Initial Review Date: 03/12/2019 Generated: 03/12/19 1:39 pm Comments DCP- Discharge Planning Updated by [email or web address]: Abiodun Burns on 03/12/19 11:[address] Patient Name: ERNIE VILLALBA Admission Status: ER Accout number: [id number] Admission Date: 03-10-2019 : 1950 Admission Diagnosis:SHORTNESS OF BREATH Attending: EMMANUEL AUSTIN Current LOS: 2 Anticipated DC Date: 03-12-2019 Planned Disposition: Acute Care Hospital Primary Insurance: MEDICARE A & B PLANNED EXTERNAL PROVIDER: [facility] Discharge Planning Comments: CM RECEIVED CALL FROM DR. DENNISON'S NURSE, JAMES, WHO INFORMED CM THAT DR. DENNISON IS TRANSFERRING PT TO [facility] FOR EVALUATION FOR TAVR, A PROCEDURE NOT DONE AT [facility]. DR BREAUX IS ACCEPTING. JOSEPHINE AT THE TRANSFER CENTER HAS BEEN NOTIFIED. CM CALLED, REQUESTED AND RECEIVED ADMINISTRATIVE APPROVAL FOR TRANSFER FROM [employer] [facility]. CM SPOKE TO PT IN ROOM REGARDING TRANSFER. PT REPORTS SPEAKING TO THE DOCTOR AND IS IN AGREEMENT WITH TRANSFER TO [facility]. CM ASKED CM TO CALL HER DAUGHTER OR GRANDDAUGHTER AND NOTIFY THEM. CM CALLED KEMI VILLALBA, , WHO WILL NOTIFY HER MOTHER, HAYDEN VILLALBA. PT REPORTS LIVING AT HOME, PT'S GRANDDAUGHTER LIVES IN THE HOME AND ASSISTS WITH TRANSFERS. PT REPORTS HAVING A BEDSIDE COMMODE, WALKER AND SHOWER CHAIR WITH NO MEDICAL EQUIPMENT PROVIDER PREFERENCE. PT STATES SHE HAS NO OUTSIDE SERVICES ASSISTING IN THE HOME. CM CALLED [facility] ADMIT LINE, , SPOKE TO JOSEPHINE WHO CONFIRMED HAVING STARTED PROCESS OF TRANSFER. JOSEPHINE REPORTS SHE IS WAITING ON CONFIRMATION OF DOCTOR ACCEPTANCE AND BED FOR TRANSFER AND WILL CALL [facility] 2 WHEN ARRANGEMENTS ARE COMPLETED. Rock Crusher: Abiodun Burns DCPIA - Discharge Planning Initial Assessment Updated by [email or web address]: Abiodun Burns on 03/12/19 12:20 pm * Is the patient Alert and Oriented? Yes * How many steps to enter\exit or inside your home? NONE * PCP DR. DOROTHY FUENTES * Pharmacy [facility]. * Preadmission Environment Home with Family * ADLs Partial Dependent * Partial ADLs (Assistance needed) Transfers * Equipment Bedside Commode Shower Chair Walker * Other Equipment NO MEDICAL EQUIPMENT PROVIDER PREFERENCE * List name and contact numbers for known caregivers / representatives who currently or will assist patient after discharge: HAYDEN VILLALBA, DTR, KEMI GRAND ORLY DTR, * Verbal permission to speak to the caregivers and representatives has been obtained from the patient. Yes * Community resources currently utilized None * Please name any agencies selected above. NONE * Additional services required to return to the preadmission environment? Yes * Can the patient safely return to the preadmission environment? Yes * Has this patient been hospitalized within the prior 30 days at any hospital? Yes Last DP export: 03/12/19 11:21 a Patient Name: ERNIE VILLALBA Page [phone] at 1239 All edits/amendments must be made on the electronic document DICTATION DATE: 03/12/19 1239 CONDITIONING ROOM WORKER: JOSÉ LUIS 03/12/19 1239 RPT#: [id number] DC DATE: STATUS: ADM IN [facility] [address] [place] [address] END OF REPORT
[2019-03-12 12:45] VITALS: BP 122/74
[2019-03-12 16:15] VITALS: BP 118/56
--- NOTE | 2019-03-12 19:16 | NUR ---
[facility] CALLED AND STATED THEY DO NOT HAVE A BED AVIABLE AT THIS TIME.
--- NOTE | 2019-03-12 19:20 | NUR ---
REPORT RECIEVED AND ROUNDING COMPLETE. PATIENT LAYING IN BED RECIEVING A BREATHING TREATMENT. PATIENT STATES SHE HAS NO NEEDS AT THIS TIME. PATIENT SHOWING NO S/SX OF DISTRESS. PATIENT HAS O2 AT 2L, ALSO HAS A LEFT WRIST THAT IS SALINE LOCKED AT THIS TIME. NO S/SX OF INFILTRATION. PATIENT'S CALL LIGHT IS WITHIN REACH AND AND BED IN LOWEST LOCKED POSITION.
--- NOTE | 2019-03-12 22:53 | NUR ---
CALLED REPORT TO IMMANUEL CARRANZA AT [facility].
--- NOTE | 2019-03-13 10:07 | MORECARE ---
CASE MANAGEMENT DISCHARGE SUMMARY PATIENT: ERNIE VILLALBA UNIT: [id number] ADM DATE: 03/10/19 AGE: 69 : 50 SEX: F ROOM/BED: D.7391 AUTHOR: ZEKE,LAURIE PHYSICIAN: REFERRING PHYSICIAN: EMMANUEL AUSTIN MD DATE OF SERVICE: 03/13/19 Discharge Plan Patient Name: ERNIE [facility]ILLALBA [facility] [facility] 1950 Planned Disposition: Acute Care Hospital Anticipated Discharge Date: 03/12/19 Discharge Date: 03/12/2019 Expected LOS: 2 Initial Reviewer: [email or web address] Initial Review Date: 03/12/2019 Generated: 03/13/19 7:51 am Comments DCP- Discharge Planning Updated by [email or web address]: Abiodun Burns on 03/12/19 11:[address] Patient Name: ERNIE VILLALBA Admission Status: ER Accout number: [id number] Admission Date: 03-10-2019 : 1950 Admission Diagnosis:SHORTNESS OF BREATH Attending: EMMANUEL AUSTIN Current LOS: 2 Anticipated DC Date: 03-12-2019 Planned Disposition: Acute Care Hospital Primary Insurance: MEDICARE A & B PLANNED EXTERNAL PROVIDER: [facility] Discharge Planning Comments: CM RECEIVED CALL FROM DR. DENNISON'S NURSE, JAMES, WHO INFORMED CM THAT DR. DENNISON IS TRANSFERRING PT TO [facility] FOR EVALUATION FOR TAVR, A PROCEDURE NOT DONE AT [facility]. DR BREAUX IS ACCEPTING. JOSEPHINE AT THE TRANSFER CENTER HAS BEEN NOTIFIED. CM CALLED, REQUESTED AND RECEIVED ADMINISTRATIVE APPROVAL FOR TRANSFER FROM [employer] [facility]. CM SPOKE TO PT IN ROOM REGARDING TRANSFER. PT REPORTS SPEAKING TO THE DOCTOR AND IS IN AGREEMENT WITH TRANSFER TO [facility]. CM ASKED CM TO CALL HER DAUGHTER OR GRANDDAUGHTER AND NOTIFY THEM. CM CALLED KEMI VILLALBA, , WHO WILL NOTIFY HER MOTHER, HAYDEN VILLALBA. PT REPORTS LIVING AT HOME, PT'S GRANDDAUGHTER LIVES IN THE HOME AND ASSISTS WITH TRANSFERS. PT REPORTS HAVING A BEDSIDE COMMODE, WALKER AND SHOWER CHAIR WITH NO MEDICAL EQUIPMENT PROVIDER PREFERENCE. PT STATES SHE HAS NO OUTSIDE SERVICES ASSISTING IN THE HOME. CM CALLED [facility]AS[facility] ADMIT LINE, , SPOKE TO JOSEPHINE WHO CONFIRMED HAVING STARTED PROCESS OF TRANSFER. JOSEPHINE REPORTS SHE IS WAITING ON CONFIRMATION OF DOCTOR ACCEPTANCE AND BED FOR TRANSFER AND WILL CALL [facility] 2 WHEN ARRANGEMENTS ARE COMPLETED. Parcel Wrapper: Abiodun Burns DCPIA - Discharge Planning Initial Assessment Updated by [email or web address]: Abiodun Burns on 03/12/19 12:20 pm * Is the patient Alert and Oriented? Yes * How many steps to enter\exit or inside your home? NONE * PCP DR. DOROTHY FUENTES * Pharmacy [facility]. * Preadmission Environment Home with Family * ADLs Partial Dependent * Partial ADLs (Assistance needed) Transfers * Equipment Bedside Commode Shower Chair Walker * Other Equipment NO MEDICAL EQUIPMENT PROVIDER PREFERENCE * List name and contact numbers for known caregivers / representatives who currently or will assist patient after discharge: HAYDENVIC VILLALBA, DTR, KEMI ORLYGRAND DTR, * Verbal permission to speak to the caregivers and representatives has been obtained from the patient. Yes * Community resources currently utilized None * Please name any agencies selected above. NONE * Additional services required to return to the preadmission environment? Yes * Can the patient safely return to the preadmission environment? Yes * Has this patient been hospitalized within the prior 30 days at any hospital? Yes Last DP export: 03/12/19 11:39 a Patient Name: ERNIE VILLALBA Page [phone] at 1007 All edits/amendments must be made on the electronic document DICTATION DATE: 03/13/19650 COMPLAINT INSPECTOR: JOSÉ LUIS 03/13/19650 RPT#: [id number] DC DATE:03/12/19 STATUS: DIS IN [facility] [address] [facility] [address] END OF REPORT
== END 2019-03-12 23:59 | disposition short-term general hospital (02) | DRG 280 ==
LOC: D.ER 23:44 → D.M2 03-10 02:48
PROVIDERS: Emergency Medicine; Internal Medicine Interventional Cardiology; ADMIT Internal Medicine Nephrology; ATTEND Internal Medicine Nephrology
PROC: B2151ZZ Fluoroscopy of Left Heart using Low Osmolar Contrast (ICD-10-PCS; 2019-03-10)
PROC: 4A023N7 Measurement of Cardiac Sampling and Pressure, Left Heart, Percutaneous Approach (ICD-10-PCS; 2019-03-10)
PROC: B2111ZZ Fluoroscopy of Multiple Coronary Arteries using Low Osmolar Contrast (ICD-10-PCS; principal; 2019-03-10 12:35)
DX: I21.4 Non-ST elevation (NSTEMI) myocardial infarction (principal); I50.43 Acute on chronic combined systolic (congestive) and diastolic (congestive) heart failure; I42.9 Cardiomyopathy, unspecified; E83.42 Hypomagnesemia; D64.9 Anemia, unspecified; E78.5 Hyperlipidemia, unspecified; E11.9 Type 2 diabetes mellitus without complications; I25.10 Atherosclerotic heart disease of native coronary artery without angina pectoris; I11.0 Hypertensive heart disease with heart failure; J44.9 Chronic obstructive pulmonary disease, unspecified; I25.82 Chronic total occlusion of coronary artery; Z86.73 Personal history of transient ischemic attack (TIA), and cerebral infarction without residual deficits

== ENCOUNTER 2019-03-20 18:27 | Inpatient (IN) | payer MEDICARE ==
[~2019-03-20] VITALS: Ht 165.1 cm; Wt 95.3 kg
[~2019-03-20 18:27] MED LIST changes: +ALBUTEROL SULF8.5 GM INH; +BAYER CHEWABLE81 MG PO; +BRILINTA90 MG PO; +DIFLUCAN150 MG PO; +FUROSEMIDE40 MG PO; +GABAPENTIN100 MG PO; +ISOSORBIDE DINI20 MG PO; +K-DUR20 MEQ PO; +LANTUS SOL100 UNIT/1 SC; +LEVAQUIN750 MG PO; +LIPITOR40 MG PO; +LISINOPRIL2.5 MG PO; +LOPRESSOR25 MG PO; +NOVOLOG100 UNIT/1 SC; +RANEXA500 MG PO; +ULTRACET; +VENTOLIN INHALER
[2019-03-20] MEDS ORDERED: PROTONIX40 MG PO (20:45)
[2019-03-20] MEDS ORDERED: METOLAZONE5 MG PO (20:45)
[2019-03-20] MEDS ORDERED: THERAGRAN M [BK1 TAB PO (20:46)
[2019-03-20] MEDS ORDERED: TORSEMIDE10 MG PO (20:46)
[2019-03-20] MEDS ORDERED: ZINC OXIDE 20 %30 GM TOPICAL (20:46)
[2019-03-20] MEDS ORDERED: K-DUR20 MEQ PO (20:53)
[2019-03-20 23:36] VITALS: BP 92/40; BMI 35.0
[2019-03-21 08:42] VITALS: BP 122/47
[2019-03-21 09:11] LABS: BASOPHILS 0.3 % (0-2); EOSINOPHILS 1.8 % (0-7); HEMATOCRIT 33.7 % (36.0-48.0); HEMOGLOBIN 11.5 g/dL (12-16); IMMATURE GRANULOCYTES 0.3 % (0-5); LYMPHOCYTES 16.2 % (15-50); MCH 30.7 pg (26.0-34.0); MCHC 34.1 g/dL (31.0-37.0); MCV 89.9 fL (80.0-100.0); MEAN PLATELET VOLUME 10.7 fL (7.4-10.4); MONOCYTES 8.7 % (2-11); NEUTROPHILS 72.7 % (40-80); PLATELET COUNT 486 10x3/uL (130-400); RBC 3.75 10x6/uL (4.00-5.40); RDW 12.9 % (11.5-14.5)
[2019-03-21 09:33] LABS: ANION GAP 11.6 mmol/L (8-16); CARBON DIOXIDE 30.6 mmol/L (21.0-32.0); CREATININE - SERUM 0.9 mg/dL (0.6-1.3); POTASSIUM - SERUM 4.2 mmol/L (3.5-5.1)
[2019-03-21 12:38] VITALS: Ht 165.1 cm; Wt 95.3 kg
[2019-03-21 20:00] VITALS: BP 116/42
[2019-03-22 07:50] VITALS: BP 114/65
[2019-03-22 20:30] VITALS: BP 141/51
[2019-03-23 08:14] VITALS: BP 124/41
[2019-03-23 18:14] VITALS: BP 143/56
[2019-03-23 19:43] VITALS: BP 135/60
[2019-03-24 07:33] LABS: BASOPHILS 0.8 % (0-2); EOSINOPHILS 3.4 % (0-7); HEMATOCRIT 40.8 % (36.0-48.0); HEMOGLOBIN 13.9 g/dL (12-16); IMMATURE GRANULOCYTES 0.4 % (0-5); LYMPHOCYTES 31.2 % (15-50); MCH 30.2 pg (26.0-34.0); MCHC 34.1 g/dL (31.0-37.0); MCV 88.7 fL (80.0-100.0); MEAN PLATELET VOLUME 10.7 fL (7.4-10.4); MONOCYTES 10.5 % (2-11); NEUTROPHILS 53.7 % (40-80); PLATELET COUNT 510 10x3/uL (130-400); RDW 13.2 % (11.5-14.5)
[2019-03-24 07:40] LABS: ANION GAP 12.8 mmol/L (8-16); CALCIUM 10.1 mg/dL (8.5-10.1); CARBON DIOXIDE 29.2 mmol/L (21.0-32.0); CREATININE - SERUM 0.9 mg/dL (0.6-1.3)
[2019-03-24 09:00] VITALS: BP 175/43
[2019-03-25 00:48] VITALS: BP 113/50
[2019-03-25 08:10] VITALS: BP 124/68
[2019-03-25 20:27] VITALS: BP 120/49
[2019-03-26 07:32] LABS: BASOPHILS 0.6 % (0-2); EOSINOPHILS 3.5 % (0-7); HEMATOCRIT 36.7 % (36.0-48.0); HEMOGLOBIN 12.6 g/dL (12-16); IMMATURE GRANULOCYTES 0.5 % (0-5); LYMPHOCYTES 28.4 % (15-50); MCH 30.3 pg (26.0-34.0); MCHC 34.3 g/dL (31.0-37.0); MCV 88.2 fL (80.0-100.0); MEAN PLATELET VOLUME 10.8 fL (7.4-10.4); MONOCYTES 8.3 % (2-11); NEUTROPHILS 58.7 % (40-80); PLATELET COUNT 477 10x3/uL (130-400); RBC 4.16 10x6/uL (4.00-5.40); RDW 13.3 % (11.5-14.5); WBC 8.6 10x3/uL (4.8-10.8)
[2019-03-26 07:49] LABS: ANION GAP 10.5 mmol/L (8-16); CALCIUM 9.1 mg/dL (8.5-10.1); CARBON DIOXIDE 31.4 mmol/L (21.0-32.0)
[2019-03-26 07:54] LABS: CREATININE - SERUM 1.2 mg/dL (0.6-1.3); POTASSIUM - SERUM 3.9 mmol/L (3.5-5.1)
[2019-03-26 08:02] VITALS: BP 115/38
[2019-03-26 20:52] VITALS: BP 103/45
--- NOTE | 2019-03-27 10:46 | RHP ---
PATIENT: ERNIE VILLALBA MEDICAL RECORD: [id number] ACCOUNT: [id number] LOCATION:[facility]1119 : [birth year] ADMISSION DATE: 03/20/19 REHABILITATION HISTORY AND PHYSICAL EXAMINATION POST ADMISSION PHYSICIAN EXAMINATION POST ADMISSION PHYSICAL EXAMINATION AND HISTORY AND PHYSICAL DATE OF ADMISSION: 03/20/2019 ADMITTING DIAGNOSIS: Cardiac related secondary to bypass grafting and multiple percutaneous coronary interventions. HISTORY OF PRESENT ILLNESS: The patient is a 69-year-old female patient, who has got a history of coronary artery disease, status post coronary artery bypass grafting and multiple percutaneous coronary artery interventions. She also has systolic and diastolic congestive heart failure, history of CVA, diabetes, hyperlipidemia, and hypertension, who was admitted to [facility] with worsening shortness of breath and was found to have aortic valve stenosis and mitral valve regurgitation. She was transferred to [facility] on March 13 for further evaluation and management of her valvular heart disease. She was admitted with a diagnosis of wderx-gg-tuyboye combined systolic congestive heart failure and non-rheumatologic mitral regurgitation, calcified aortic valve stenosis, coronary artery disease, diabetes, hypertension, angina. The patient is on Lasix 40 mg b.i.d., Imdur 60 mg daily, Plavix, insulin, and other medications. She had carotid ultrasound, CT, and pulmonary function tests done. She had what appeared to be a multilobar pneumonia, pleural effusions. She has been stable on her current medications including a beta-checo and NANNETTE inhibitor, Bumex and metolazone. The patient reports she lives by herself. She is independent with a rolling walker. She does not drive. She needs to be independent to moderately independent level prior to going home for safety and decreased risk of admission. She is min assist for bed mobility, min-to-mod assist for ADLs per OT and would benefit from inpatient rehab to get her back to her prior level of functioning. Plan after rehab is to get her back to Dr. Alden aCnnon and he will be working on a possible total aortic valve replacement in the next couple of weeks. Barriers to discharge at this time include need for independence. She needs a decreased burden of care on herself at this time. She needs safety mobility and medical education. Comorbidities in this patient include hypertension, coronary artery disease, hyperlipidemia. She has got a [place] Heart Classification of 3, mitral valve regurg, and CVA. PAST MEDICAL HISTORY: Significant for CVA, hypertension, coronary artery disease, chronic back pain, depression, diabetes. PAST SURGICAL HISTORY: Includes , cholecystectomy, coronary artery bypass grafting, and percutaneous coronary interventions. ALLERGIES: LEVAQUIN. CURRENT MEDICATIONS: Include Colace 100 mg b.i.d., Prozac 60 mg daily, atorvastatin 40 mg daily, Demadex 10 mg daily, multivitamin 1 tab daily, metolazone 5 mg daily, aspirin chewable 81 mg daily, insulin Humalog subcutaneous t.i.d. with meals, Protonix 40 mg daily, polyethylene glycol 17 grams in 8 ounces of water daily b.i.d., potassium chloride 20 mEq b.i.d., Brilinta 90 mg b.i.d., Ranexa 500 mg b.i.d., Lopressor 12.5 mg b.i.d., Lantus 27 HISTORY AND PHYSICAL [id number] ORLY,ERNIE units at bedtime, Neurontin 200 mg b.i.d., meclizine 25 mg t.i.d. p.r.n. dizziness, and Ventolin updrafts as needed. HABITS: No current alcohol or tobacco use. FAMILY HISTORY: Noncontributory. SOCIAL HISTORY: The patient hopes to return back home and get back to her prior level of functioning. REVIEW OF SYSTEMS: GENERAL: Does complain of some weakness. PSYCHIATRIC: Denies cold, cough, or congestion. CARDIOVASCULAR: Denies any chest pain. LUNGS: Does complain of shortness of breath with certain activities. PHYSICAL EXAMINATION: VITAL SIGNS: Stable. She is afebrile. GENERAL: A somewhat obese female, in no acute distress upon exam. HEENT: Normocephalic and atraumatic. Mucosa moist. NECK: Supple. No lymphadenopathy. LUNGS: Clear in the upper mart[place]. HEART: Regular rate and rhythm. She does have a holosystolic murmur. ABDOMEN: Soft, benign, and nondistended. Positive bowel sounds times 4. EXTREMITIES: No clubbing, cyanosis or edema. NEUROLOGIC: She does have noted proximal muscle weakness in her legs. LABORATORY DATA: Labs are pending at this time. ASSESSMENT: This is a 69-year-old female patient admitted to the rehab with a working diagnosis of cardiac debility secondary to a need for a total aortic valve replacement. The patient has potential to make improvement. We will institute the following multidisciplinary therapies including, but not limited to physical, occupational, respiratory, speech, nutritional services, prosthetics and orthotics. Given her complex medical condition and risks for more complications, rehabilitation services cannot be provided at a low level of care such as a residential facility. PLAN: 1. Admit to [facility] for an inpatient therapy to include the following disciplines: A. Physical therapy to improve gait, all transfer skills and bed mobility to a modified independent level. B. Occupational therapy to modified independent level. C. Case management to assist with discharge planning and placement options. D. Nutrition to assist with nutritional needs. E. Rehabilitation nursing to assist in monitoring the patient's underlying medical condition and to assist with any type of bowel or bladder management. 2. The patient's current medications and medical care will be continued. 3. The patient will be placed on standard fall precautions. 4. We watch for any signs of failure including gaining weight or shortness of breath, and we will check x-rays and BMPs if needed, and I will see again in the a.m. TRANSINT:[id number] Voice Confirmation ID: [id number] DOCUMENT ID: [id number] HISTORY AND PHYSICAL [id number] ERNIE VILLALBA notes whether there has been none or any medical/functional change since admission: - No change since prescreen. CORI attests patient continues to be appropriate for IRF: - Continues to be appropriate. CAMILA FLORES MD at 1046 CC: [id number] DICTATION DATE: 03/21/19909 WAREHOUSE DELIVERY DRIVER: 03/21/19 0947 ADM IN [facility] [address] [id number]
[2019-03-27 11:21] VITALS: BP 108/44
[2019-03-27 19:52] VITALS: BP 146/62
[2019-03-28 07:30] VITALS: BP 124/60
[2019-03-28 07:54] LABS: BASOPHILS 0.7 % (0-2); EOSINOPHILS 2.8 % (0-7); HEMATOCRIT 35.2 % (36.0-48.0); HEMOGLOBIN 12.1 g/dL (12-16); IMMATURE GRANULOCYTES 0.1 % (0-5); LYMPHOCYTES 29.2 % (15-50); MCH 30.5 pg (26.0-34.0); MCHC 34.4 g/dL (31.0-37.0); MCV 88.7 fL (80.0-100.0); MEAN PLATELET VOLUME 10.6 fL (7.4-10.4); MONOCYTES 9.1 % (2-11); NEUTROPHILS 58.1 % (40-80); PLATELET COUNT 463 10x3/uL (130-400); RBC 3.97 10x6/uL (4.00-5.40); RDW 13.3 % (11.5-14.5); WBC 9.1 10x3/uL (4.8-10.8)
[2019-03-28 08:05] LABS: ANION GAP 11.9 mmol/L (8-16); CALCIUM 9.2 mg/dL (8.5-10.1); CARBON DIOXIDE 28.9 mmol/L (21.0-32.0); CREATININE - SERUM 0.9 mg/dL (0.6-1.3); POTASSIUM - SERUM 3.8 mmol/L (3.5-5.1)
[2019-03-28 19:48] VITALS: BP 131/78
[2019-03-29 07:45] VITALS: BP 114/46
[2019-03-29 19:51] VITALS: BP 106/42
[2019-03-30 07:52] VITALS: BP 124/59
[2019-03-30 20:10] VITALS: BP 100/35
[2019-03-30 22:36] VITALS: BP 117/50
[2019-03-31 07:01] LABS: BASOPHILS 0.6 % (0-2); EOSINOPHILS 1.8 % (0-7); HEMATOCRIT 36.5 % (36.0-48.0); HEMOGLOBIN 12.5 g/dL (12-16); IMMATURE GRANULOCYTES 0.3 % (0-5); MCH 30.2 pg (26.0-34.0); MCHC 34.2 g/dL (31.0-37.0); MCV 88.2 fL (80.0-100.0); MEAN PLATELET VOLUME 10.3 fL (7.4-10.4); MONOCYTES 10.5 % (2-11); NEUTROPHILS 59.8 % (40-80); PLATELET COUNT 470 10x3/uL (130-400); RBC 4.14 10x6/uL (4.00-5.40); RDW 13.5 % (11.5-14.5); WBC 10.7 10x3/uL (4.8-10.8)
[2019-03-31 07:08] LABS: CALC OSMOLALITY 277 mosm/kg (275-300); CALCIUM 8.8 mg/dL (8.5-10.1); CARBON DIOXIDE 30.1 mmol/L (21.0-32.0); CHLORIDE - SERUM 100 mmol/L (98-107); CREATININE - SERUM 0.8 mg/dL (0.6-1.3); GLUCOSE 179 mg/dL (74-106); POTASSIUM - SERUM 4.1 mmol/L (3.5-5.1); SODIUM 136 mmol/L (136-145); UREA NITROGEN 18 mg/dL (7-18); eGFR NON AFRICAN AMERICAN 75 mL/min (90-120)
[2019-03-31 07:30] VITALS: BP 112/43
[2019-03-31 20:43] VITALS: BP 104/48
[2019-04-01 08:10] VITALS: BP 125/54
== END 2019-04-01 15:50 | disposition home or self-care (01) | DRG 293 ==
LOC: D.REHAB 18:27
PROVIDERS: ADMIT Emergency Medicine; ATTEND Emergency Medicine
DX: I11.0 Hypertensive heart disease with heart failure (principal); I50.23 Acute on chronic systolic (congestive) heart failure; I25.10 Atherosclerotic heart disease of native coronary artery without angina pectoris; E78.5 Hyperlipidemia, unspecified; E11.9 Type 2 diabetes mellitus without complications; G89.29 Other chronic pain; R06.02 Shortness of breath; I34.0 Nonrheumatic mitral (valve) insufficiency; R01.1 Cardiac murmur, unspecified

== ENCOUNTER 2019-04-08 00:42 | Inpatient (IN) | payer MEDICARE ==
[2019-04-08] VITALS (40 sets, daily range): BP systolic 71–112; BP diastolic 24–72; Ht 165.1 cm; Wt 85.6 kg
[~2019-04-08] VITALS: Ht 165.1 cm; Wt 85.6 kg
--- NOTE | ~2019-04-08 | HEMODYNAMI ---
PATIENT:ERNIE VILLALBA MEDICAL RECORD: [id number] : 50 [facility] DATE: 04/08/19 Generatedon:04/08/20193:35 Patient name: ERNIE VILLALBA Patient #: [id number] : 1950 Date of study: 04/08/2019 Page: Of Hemodynamic Procedure Report Patient Data Patient Demographics Procedure consent was obtained First Name: ERNIE Gender: Female Last Name: ORLY : 1950 Patient #: [id number] Age: 69 year(s) Race: SSN: [id number] Additional ID: [id number] Contact details Address: [address] [place] [address] State: [place] City: [place] Zip code: [address] Past Medical History Allergies Allergen Reaction Date Comments Reported Other allergy 03/10/2019 LEVAQUIN Other allergy 04/08/2019 levofloxacin Admission Admission Data Admission Date: 04/08/2019 Admission Time: 0:42 Arrival Date: 04/08/2019 Arrival Time: 0:00 Admit Source: Emergency Insurance Payor: Medicare, department Medicaid [facility] #: [id number] Height (in.): 64.96 BSA: 1.91 (m2) Height (cm.): 165 BMI: 30.85 (kg/m2) Weight (lbs.): 185.19 Weight (kg.): 84 Lab Results Lab Result Date: 04/08/2019 Lab Result Time: 1:14 Biochemistry Name Units Result Min Max BUN mg/dl 10 --(-*--)-- 7 18 Creatinine mg/dl 1.1 --(--*-)-- 0.6 1.3 CBC Name Units Result Min Max Hematocrit % 32.6 *-(----)-- 42 54 Hemoglobin g/dl 11.3 *-(----)-- 13.5 17.5 Procedure Procedure Types Cath Procedure Diagnostic Procedure C Coronaries w/Grafts Sedation Charges Moderate Sedation up to 15 minutes PCI Procedure PTCA PTCA Initial Procedure Description Procedure Date Procedure Date: 04/08/2019 Procedure Start Time: 2:55 Procedure End Time: 3:15 Procedure Staff Name Function Ketan Graham MD Performing Physician José Manuel Mixon RT Monitor Cici Reis RT Scrub Nadine Mackay RN Nurse Procedure Data Cath Procedure Fluoroscopy Diagnostic fluoroscopy Total fluoroscopy Time: 3.7 time: 3.7 min min Diagnostic fluoroscopy Total fluoroscopy dose: 490 dose: 490 mGy mGy Contrast Material Contrast Material Type Amount (ml) Isovue 300 53 Entry Location Entry Primary Successful Side Size Upsize Upsize Entry Closure Succes sful Closure Location (Fr) 1 (Fr) 2 (Fr) Remarks Device Remarks Femoral Right 6 Fr Exoseal artery Short Estimated blood loss: 10 ml Diagnostic catheters Device Type Used For End Catheter Placement MULTIPACK JL 4.0 5Fr Procedure catheter MULTIPACK 3DRC 5Fr Procedure catheter Procedure Complications No complications Procedure Medications Medication Administration Route Dosage 0.9% NaCl I.V. 100 ml/hr Oxygen etCO2 Nasal cannula 2 l/min Lidocaine 2% added to field 20 Heparin Flush Bag added to field 2 bags (1000units/500ml NS) Versed I.V. 2 mg Fentanyl I.V. 50 mcg Heparin Bolus I.V. 5000 units Brilinta P.O. 90 mg unlisted medication 150 mg Hemodynamics Rest BSA: 1.91 (m2) HGB: 11.3 (g/dl) O2 Consumption: Estimated: 192.25 (ml/min) O2 Co nsumption indexed: Estimated:100.65 (ml/min/m) Heart Rate: 92 (bpm) Snapshots Pre Cath Intra NCS Post Cath Vital Signs Time Heart Resp SPO2 etCO2 NIBP Rhythm Pain Sedation Rate (ipm) (%) (mmHg) (mmHg) Status Level (bpm) 2:51:34 124 24 100 18 117/55(97) NSR 0 (11) 10(A) , No pain 2:56:00 115 26 100 32 109/43(82) NSR 0 (11) 10(A) , No pain 3:00:20 111 26 100 29 91/46(74) NSR 0 (11) 10(A) , No pain 3:04:38 111 16 100 29.7 103/49(85) NSR 0 (11) 10(A) , No pain 3:09:02 114 28 100 31 105/45(64) NSR 0 (11) 10(A) , No pain 3:13:20 111 33 100 0 96/58(78) NSR 0 (11) 10(A) , No pain Medications Time Medication Route Dose Verified Delivered Reason Notes Effectiveness by by 2:52:23 0.9% NaCl I.V. 100 Ketan Nadine used for ml/hr [facility] Mackay procedure MD CARRANZA 2:52:30 Oxygen etCO2 2 Ketan Nadine used for Nasal l/min [facility] Mack[facility] procedure cannula MD CARRANZA 2:52:36 Lidocaine 2% added 20ml Ketan Sinclairory for local to vial [facility] anesthetic field MD CUMMINS 2:52:42 Heparin Flush added 2 Ketan Ketan used for Bag to bags [place] [facility] procedure (1000units/500ml field MD CUMMINS NS) 2:54:54 Versed I.V. 2 mg Ketan Nadine for sedation [facility] Leonel Mackay MD, RN 2:54:58 Fentanyl I.V. 50 Ketan Nadine for sedation mcg [facility] Leonel Mackay MD, RN 3:02:56 Heparin Bolus I.V. 5000 Ketan Nadine for verifi ed units [facility] Leonel Mackay anticoagulation with Dr. MD CARRANZA [place] 3:10:41 Brilinta P.O. 90 mg Ketan Nadine for [facility] Leonel Mackay antiplatelet MD CARRANZA therapy 3:14:20 Amiodarone IVP 150mg Ketan Nadine Per physician (150mg/3mL) [facility] Le[facility] Mackay MD, RN Procedure Log Time Note 2:31:22 Signed procedure consent form obtained from patient. 2:31:27 Procedure Status Emergent Heart Cath (AMI). 2:31:31 Nadine Mackay RN sent for patient. Start room use. 2:31:32 Time tracking: Regular hours (M-F 7:00 - 5:00) 2:31:35 Plan of Care:Hemodynamics will remain stable., Cardiac rhythm will remain stable., Comfort level will be maintained., Respiratory function will remain adequate., Patient/ family verbilizes understanding of procedure., Procedure tolerated without complication., Recovers from procedure without complications.. 2:42:30 Patient received from ED to CCL 1 Alert and oriented. Tansferred to table in Supine position. 2:42:33 Warm blankets applied, and aminata hugger turned on for patient comfort. 2:42:34 Correct patient and procedure confirmed by team. 2:42:35 ECG and BP/O2 sat monitors applied to patient. 2:42:40 H&P Date Dictated: 04/08/2019 New H&P dictated by physician.. 2:42:41 Pre-procedure instructions explained to patient. 2:42:42 Pre-op teaching completed and patient verbalized understanding. 2:50:07 Vital chart was started 2:50:43 Rhythm: sinus rhythm WITH ST DEPRESSION 2:50:45 Full Disclosure recording started 2:50:47 Family unavailable. 2:50:51 Patient NPO since Dinner. 2:51:06 Patient allergic to Other allergylevofloxacin 2:51:10 Is the patient allergic to Iodine/contrast media? No. 2:51:11 Is patient on blood thinner?Yes 2:51:14 ACC The patient was administered the following blood thiners within the last 24 hours: ACCBrilinta 2:51:15 Patient diabetic? Yes. 2:51:20 Previous problem with sedation/anesthesia? No ? 2:51:21 Snore? Yes 2:51:22 Sleep apnea? Yes 2:51:23 Deviated septum? No 2:51:24 Opens mouth fully? Yes 2:51:24 Sticks out tongue? Yes 2:51:27 Airway obstruction? Yes copd 2:51:30 Dentures? No ? 2:51:32 Pre procedure: right dorsailis pedis pulse 2+ Normal; easily identifiable; not easily obliterated 2:52:23 0.9% NaCl 100 ml/hr I.V. was administered by Nadine Mackay RN; used for procedure; 2:52:30 Oxygen 2 l/min etCO2 Nasal cannula was administered by Nadine Mackay RN; used for procedure; 2:52:36 Lidocaine 2% 20ml vial added to field was administered by Ketan Graham MD; for local anesthetic; 2:52:42 Heparin Flush Bag (1000units/500ml NS) 2 bags added to field was administered by Ketan Graham MD; used for procedure; 2:53:00 Patient pain scale 6/10 ?. 2:53:08 IV patent on arrival in right forearm with 0.9% NaCl at KVO. 2:53:10 Lab results completed and on chart. 2:53:13 Right groin area was prepped with chlora-prep and draped in sterile fashion 2:53:14 Alarms reviewed by R. N. 2:53:14 Sharps counted by scrub and verified by R.N. 2:53:17 Physician arrived 2:53:18 --------ALL STOP TIME OUT------ 2:53:18 Final Timeout: patient, procedure, and site verified with staff and physician. All members of the team are in agreement. 2:53:20 Right groin site verified by team. 2:53:27 Fire Safety Assessment: A--An alcohol-based skin anteseptic being used preoperatively., C--Open oxygen or nitrous oxide is being used., D--An ESU, laser, or fiber-optic light is being used. 2:53:31 Physical assessment completed. ASA score P 3 - A patient with severe systemic disease as per Ketan Graham MD. 2:53:41 3a) 45-59 Moderately reduced kidney function. 2:53:54 Maximum allowable contrast dose (3.7 X eGFR X 0.75)144 ml. 2:53:57 Sedation plan: IV Moderate Sedation Medication:Versed, Fentanyl 2:54:02 SHEATH 6FR [place] (VDV631) opened to sterile field. 2:54:03 Baseline sample Acquired. 2:54:07 Zero performed for pressure channel P1 2:54:15 Use device set Femoral Dx 2:54:16 ACIST Syringe (45907) opened to sterile field. 2:54:17 Bag Decanter (2002S) opened to sterile field. 2:54:17 Medline Cath Pack ([id number]) opened to sterile field. 2:54:18 ACIST Hand Control (20832) opened to sterile field. 2:54:19 ACIST Manifold (26235) opened to sterile field. 2:54:20 Tegaderm 4 x 4 (1626W) opened to sterile field. 2:54:21 EMERALD Guide Wire (722-332) opened to sterile field. 2:54:23 DIAGNOSTIC Multipack 5Fr catheter set (LN2206) opened to sterile field. 2:54:54 Versed 2 mg I.V. was administered by Nadine Thompson RN; for sedation; 2:54:58 Fentanyl 50 mcg I.V. was administered by Nadine Mackay RN; for sedation; 2:55:09 Lab Result : BUN 10 mg/dl 2:55:09 Lab Result : Creatinine 1.1 mg/dl 2:55:09 Lab Result : Hemoglobin 11.3 g/dl 2:55:09 Lab Result : Hematocrit 32.6 % 2:55:33 Admit Source: Emergency department 2:55:46 Procedure started. 2:55:48 Local anesthetic to right femoral artery with Lidocaine 2% by Ketan Graham MD.INITIAL ACCESS ONLY 2:55:57 A 6 Fr Short sheath was inserted into the Right Femoral artery 2:56:10 WHISPER 300cm guide wire ([id number]) opened to sterile field. 2:56:29 A MULTIPACK JL 4.0 5Fr catheter was advanced over the wire and used for Procedure. 2:56:45 INFLATOR Merit BasixCompak (IZ3976) opened to sterile field. 2:57:31 LCA angiography performed. 2:57:46 Patient Weight : 185.19 lbs 2:57:50 Patient Height : 64.96 inches 2:58:04 Insurance Payor : Medicare, Medicaid 2:58:17 Catheter exchanged over wire. 2:58:22 A MULTIPACK 3DRC 5Fr catheter was advanced over the wire and used for Procedure. 2:58:26 RCA angiography performed. 2:58:30 SVG to RCA angiography performed. 2:58:34 CURRY to LAD angiography performed. 2:59:00 Arrival Date: 04/08/2019 12:00:00 AM 2:59:06 Diagnostic Cath Status : Emergency 2:59:09 PCI Cath Status : Emergency 3:01:38 Catheter exchanged over wire. 3:01:43 GUIDE 6FR XBLAD 3.5 catheter ([id number]) opened to sterile field. 3:01:56 6 Fr XBLAD 3.5 guide catheter was inserted over the wire 3:02:21 WHISPER wire advanced. 3:02:56 Heparin Bolus 5000 units I.V. was administered by Nadine Mackay RN; for anticoagulation; verified with Dr. Rojas 3:03:00 Pre PCI Site: [place] pCirc has 100% stenosis. 3:04:27 ACC Pre-intervention HODAN Flow is 1. 3:05:14 Wire advanced across lesion. 3:05:37 Inflate balloon Inflation number: 1 A EMERGE OTW 2.5 x 15 balloon ([id number]) was prepped and advanced across the Prox CX , then inflated to 10 SOLEDAD for 0:45 (min:sec) . 3:06:16 Inflation number: 2 The EMERGE OTW 2.5 x 15 balloon ([id number]) was reinflated across the Prox CX , to 12 SOLEDAD for 0:45 (min:sec) . 3:06:28 ACCDominant side:Co-Dominant 3:07:37 Timer 1 started at 3:06 AM, stopped at 3:07 AM, duration 00:00:44 sec. 3:07:51 Post PCI Site: [place] pCirc has 40.% stenosis. 3:07:56 ACC Post-intervention HODAN Flow is 3. 3:08:00 Balloon removed over the wire. 3:08:00 Wire removed. 3:08:15 Guide catheter removed. 3:08:21 EXOSEAL 6Fr (EX600) opened to sterile field. 3:08:28 Sheath removed intact; hemostasis achieved with Exoseal to the Right Femoral artery. 3:08:30 Procedure ended.(Physican Out) 3:10:41 Brilinta 90 mg P.O. was administered by Nadine Mackay RN; for antiplatelet therapy; 3:10:45 Fluoroscopy time 03.70 minutes. 3:10:49 Flurop Dose total: 490 3:10:49 Fluoroscopy dose: 490 mGy 3:11:34 Dose Area Product 49763 mGy/cm. 3:13:05 Contrast amount:Isovue 300 53ml. 3:13:07 Maximum allowable dose exceeded? No. 3:13:08 Sharps counted by scrub and verified by R.N. 3:13:09 Insertion/operative site no bleeding no hematoma. 3:13:12 Post-op/insertion site Right Femoral artery dressed using a 4 x 4 and Tegaderm. 3:13:16 Post right femoral artery:stable, soft, clean and dry 3:13:19 Post Procedure Pulses reassessed and unchanged 3:13:22 Post-procedure physical assessment completed. ASA score P 3 - A patient with severe systemic disease as per Ketan Graham MD. 3:13:25 Post procedure rhythm: unchanged. 3:13:29 Estimated blood loss: 10 ml 3:13:30 Post procedure instruction explained to patient.Patient verbalizes understanding. 3:13:30 Patient needs reinforcement of post procedure teaching. 3:13:55 Procedure type changed to Cath procedure, Diagnostic procedure, LHC, Coronaries w/Grafts, Sedation Charges, Moderate Sedation up to 15 minutes, PCI procedure, PTCA, PTCA Initial 3:14:20 Amiodarone (150mg/3mL) 150mg IVP was administered by Nadine Mackay RN; Per physician; 3:15:09 Procedure and supply charges have been captured, reviewed, submitted and are correct. 3:15:13 Procedure Complication : No complications 3:15:16 Vital chart was stopped 3:15:16 See physician's report for complete and final results. 3:15:18 Report given to CVICU. 3:15:21 Patient transfered to CVICU with Stretcher. 3:15:45 Procedure ended. 3:15:45 Full Disclosure recording stopped 3:15:57 End room use (Document Last) Intervention Summary Intervention Notes Time ActionType Lesion and Equipment Action# Pressure Duration Attributes Used 3:05:37 Inflate Prox CX EMERGE OTW 1 10 00:45 balloon 2.5 x 15 balloon ([id number]) 3:06:16 Reinflate Prox CX EMERGE OTW 2 12 00:45 balloon 2.5 x 15 balloon ([id number]) Device Usage Item Name Manufacture Quantity Catalog Number Hospital Part Current Min imal Lot# / Charge Number Stock Stock Serial# Code ACIST Acist 1 32765 520346 644870 896165 20 Syringe Medical (58481) Systems Inc Bag Decanter Microtek 1 2001S 891989 97995 959688 5 (2001S) Medical Inc. Medline Cath Medline 1 [id number] 81769 500573 5 Pack ([id number]) ACIST Hand Acist 1 83823 605732 806384 934840 5 Control Medical (12025) Systems Inc ACIST Acist 1 77366 629662 056097 772924 5 Manifold Medical (59295) Systems Inc Tegaderm 4 x 3M 1 1626W 038936 277490 646570 5 4 (1626W) EMERALD Cardinal 1 502-455 752535 423945 081241 5 Guide Wire Health (502455) DIAGNOSTIC Cardinal 1 VC5635 767875 37818 319900 30 Multipack Health 5Fr catheter set (HU9697) SHEATH 6FR Terumo 1 MLQ975 185800 787103 853518 40 [place] (ZDI839) WHISPER Schulz 1 [id number] 964830 032767 119096 5 300cm guide Vascular wire ([id number]) MULTIPACK JL Cardinal 1 806972 5 4.0 5Fr Health catheter MULTIPACK Cardinal 1 343336 5 3DRC 5Fr Health catheter GUIDE 6FR Cardinal 1 [id number] 714238 958788 077374 10 XBLAD 3.5 Health catheter ([id number]) EMERGE OTW Marshall 1 [id number] 732427 280682 057701 5 [id number] 2.5 x 15 Scientific balloon ([id number]) EXOSEAL 6Fr Cardinal 1 EX600 417434 599994 943819 10 (EX600) Health INFLATOR [facility] 1 VB4246 561010 719909 380844 15 [facility] BasixCompa (UT9666) Signature Audit Gardner Stage Time Signature Unsigned Intra-Procedure 04/08/2019 José Manuel Mixon 3:34:58 AM RT(R) Signatures Performing Physician : Signature : Ketan Graham MD Date : Time : Monitor : José Manuel Mixon RT Signature : Date : Time : Nurse : Nadine Mackay RN Signature : Date : Time : [facility] [address] [place] [address]
[~2019-04-08 00:42] MED LIST changes: +METOLAZONE5 MG PO; +PROTONIX40 MG PO; +THERAGRAN M [BK1 TAB PO; +TORSEMIDE10 MG PO; +ZINC OXIDE 20 %30 GM TOPICAL
[2019-04-08] MEDS ORDERED: ISOSORBIDE DINI20 MG PO (00:54)
[2019-04-08] MEDS ORDERED: FUROSEMIDE20 MG PO (00:55)
[2019-04-08] MEDS ORDERED: LISINOPRIL10 MG PO (00:56)
[2019-04-08 01:19] LABS: BASOPHILS 0.4 % (0-2); EOSINOPHILS 0.5 % (0-7); HEMATOCRIT 32.6 % (36.0-48.0); HEMOGLOBIN 11.3 g/dL (12-16); IMMATURE GRANULOCYTES 0.2 % (0-5); MCH 30.5 pg (26.0-34.0); MCHC 34.7 g/dL (31.0-37.0); MCV 87.9 fL (80.0-100.0); MEAN PLATELET VOLUME 10.4 fL (7.4-10.4); MONOCYTES 10.3 % (2-11); NEUTROPHILS 72.6 % (40-80); PLATELET COUNT 383 10x3/uL (130-400); RBC 3.71 10x6/uL (4.00-5.40); RDW 13.6 % (11.5-14.5); WBC 11.1 10x3/uL (4.8-10.8)
[2019-04-08 01:32] LABS: APTT 27.6 SECONDS (22.8-39.4); INR 1.16 (0.85-1.17); PROTIME 14.3 SECONDS (11.6-15.0)
--- NOTE | 2019-04-08 01:39 | NUR ---
MARKED CHANGES IN CARDIAC MONITORING. EKG REPEATED, EDP NOTIFIED.
[2019-04-08 01:48] LABS: ALBUMIN 2.7 g/dL (3.4-5.0); ALKALINE PHOSPHATASE 131 U/L (46-116); ALT (SGPT) 24 U/L (10-68); BILIRUBIN - TOTAL 1.16 mg/dL (0.2-1.3); CALC OSMOLALITY 276 mosm/kg (275-300); CALCIUM 8.6 mg/dL (8.5-10.1); CARBON DIOXIDE 26.9 mmol/L (21.0-32.0); CHLORIDE - SERUM 96 mmol/L (98-107); CKMB 3.3 U/L (0.0-3.6); CREATINE KINASE 56 UL (21-215); CREATININE - SERUM 1.1 mg/dL (0.6-1.3); MAGNESIUM - SERUM 1.5 mg/dL (1.8-2.4); POTASSIUM - SERUM 3.9 mmol/L (3.5-5.1); PROTEIN - SERUM 7.2 g/dL (6.4-8.2); SODIUM 128 mmol/L (136-145); UREA NITROGEN 10 mg/dL (7-18); eGFR NON AFRICAN AMERICAN 52 mL/min (90-120)
[2019-04-08 01:49] LABS: GLUCOSE 477 mg/dL (74-106)
--- NOTE | 2019-04-08 01:50 | NUR ---
PT DAUGHTER CALLS AT THIS TIME TO CHECK ON PT. PT GIVES PERMISSION TO TALK TO DAUGHTER ABOUT HER CARE.
--- NOTE | 2019-04-08 02:38 | NUR ---
POWER HOUSE ENGINEER HERE TO TAKE PATIENT.
--- NOTE | 2019-04-08 03:50 | NUR ---
pt recieved from culture media laboratory assistant via bed. monitor equip established . vss. denies [pain. salena r groin cdi. no hematoma noted. ppp. will continue to monitor.
--- NOTE | 2019-04-08 04:00 | NUR ---
DR ALVA NOTIFIED OF FSBS 486. ORDER TO CALL ZAIRE SHEPARD APN AQND LET DR AUSTIN MANAGE GLUCOSE. ZAIRE NOTIFIED AND ORDER RECIEVED FOR NOVOLOG INTERMEDIATE S/S INSULIN WITH Q 4 HR FSBS. GLUCOSE TEATED WITH 20 UNITS OF HUMALOG.
--- NOTE | 2019-04-08 06:15 | NUR ---
ZAIRE SHEPARD NOTIFIED OF FSBS 404. NO NEW ORDERS AT THIS TIME.
[2019-04-08 07:06] LABS: ANION GAP 14.2 mmol/L (8-16); CALCIUM 8.6 mg/dL (8.5-10.1); CARBON DIOXIDE 22.9 mmol/L (21.0-32.0); POTASSIUM - SERUM 4.1 mmol/L (3.5-5.1)
--- NOTE | 2019-04-08 10:10 | NUR ---
ASSISTED PT UP TO BATHROOM. SOB NOTED. HR INCREASED TO 111. VERY WEAK. HOB [address] WRIGHT PAGED AT THIS TIME. WILL CONTINUE TO MONITOR.
--- NOTE | 2019-04-08 10:18 | NUR ---
CALL RECEIVED FROM FREDI WITH DR. WRIGHT. HE IS CURRENTLY IN A CATH PROCEDURE. I LET FREDI KNOW THAT PATIENT WAS HAVING SOB. SHE WILL NOTIFY DR. WRIGHT.
--- NOTE | 2019-04-08 10:50 | NUR ---
PULLED UP AND REPOSTIONED FOR COMFORT.
--- NOTE | 2019-04-08 11:21 | NUR ---
CALL LIGHT ANSWERED. PT REPORTED THAT SHE FELT LIKE HER BLOOD GLUCOSE WAS LOW. BLOOD GLUCOSE AT THIS TIME 101. GAVE PT 2 ORANGE JUICE. WILL CONTINUE TO MONITOR.
--- NOTE | 2019-04-08 12:42 | NUR ---
PT ATE GRAPES AND IS CURRENLTY DRINKING DIET COKE. BLOOD GLUCOSE 129 AT THIS TIME. NO INSULIN GIVEN PER SLIDING SCALE. DENIES FURTHER NEEDS. WILL CONTINUE TO MONITOR.
--- NOTE | 2019-04-08 13:52 | NUR ---
CALLED RECEIVED FROM HAYDEN VILLALBA, PT'S DAUGHTER. NO PASSCODE SET UP. PT OKAY WITH DAUGHTER GETTING INFORMATION REGARDING HER HEALTH. BRIEF UPDATE GIVEN. WILL BE BY TO SEE PATIENT LATER TODAY.
--- NOTE | 2019-04-08 14:29 | OP ---
PATIENT NAME: ERNIE VILLALBA MEDICAL RECORD: [id number] :50 LOCATION:[facility] ADMISSION DATE:04/08/19 SURGEON: ALICIA ALVA MD DATE OF OPERATION: 04/08/2019 PROCEDURE: Left heart catheterization, selective coronary angiography plus PTCA, right femoral artery approach. CATHETERS: A 6-Cook Islander sheath, 5/4 left and right Mike, 5/4 pig. The procedure was well tolerated. We elected to proceed with PTCA to the circumflex. FINDINGS: Left ventriculography not performed. CORONARY ANATOMY: LEFT MAIN: Left main fills for a short period of time, then fills the circumflex. It is a long large subtotal occlusion down to the terminal circumflex as well as a large OM, which is totally occluded chronically with right to left collaterals. RIGHT CORONARY ARTERY: Totally occluded. BYPASS GRAFTS: 1. CURRY to LAD is widely patent throughout its course. 2. Saphenous vein graft to the right is widely patent. IMPRESSION: We will attempt to revascularize the terminal circumflex, small vessel. DESCRIPTION OF PROCEDURE: Using 6-Cook Islander sheath, an XB LAD guiding catheter provided excellent guide catheter support followed by 300 cm Whisper wire, which was placed across the subtotal 90% plus stenosed terminal circumflex distal portion of this vessel. Stent was a 2.5 x 15 mm Madison balloon up to 8 atmospheres. This showed plumping of the distal vasculature, no evidence of dissection. HODAN flow improved from 2 to 3. Sheath closed with ExoSeal device. TRANSINT:[id number] Voice Confirmation ID: [id number] DOCUMENT ID: [id number] ALICIA ALVA MD at 1429 CC: [id number] DICTATION DATE: 04/08/19 0321 HEALTH INFORMATION CODER: 04/08/19 0802 ADM IN [place] [id number] [place] [address]
--- NOTE | 2019-04-08 14:29 | CN ---
PATIENT NAME:ERNIE VILLALBA MEDICAL RECORD: [id number] : 50 LOCATION:[facility] ADMIT DATE: 04/08/19 ACCOUNT: [id number] CONSULTING PHYSICIAN: ALICIA ALVA MD REFERRING PHYSICIAN: ALICIA ALVA MD DATE OF CONSULTATION: 04/08/2019 HISTORY OF PRESENT ILLNESS: A 69-year-old female with a known history of coronary artery disease, status post intervention in the past. She has a history of critical . Actually was seen at [facility], possible TAVR, very poor historian. She may have had scheduled date, may have follow up, has known cardiomyopathy, presumed valvular as well as ischemic, admitted with chest pain, non-ST elevation myocardial infarction. Continued pain and brought to cardiac cath lab radiology technologist on an urgent basis. PAST MEDICAL HISTORY: 1. History of diabetes mellitus. 2. Hypertension. 3. Hyperlipidemia. 4. Cardiomyopathy, EF 20-30%. 5. Aortic valve disease. ALLERGIES: LEVAQUIN. MEDICATIONS: Include atorvastatin 40 p.o. daily, Imdur 20 p.o. t.i.d., Brilinta 90 b.i.d., lisinopril 10 every day, metoprolol 12.5 b.i.d., Ranexa 500 b.i.d., Neurontin 200 b.i.d., Lasix 20 every day, Metolazone 5 daily, and insulin per scale. SOCIAL HISTORY: Nonsmoker, recently discharged from rehab. Has not been taking care of her ADLs due to recent stay in rehab. REVIEW OF SYSTEMS: The patient reports easy bruising but reports no swollen glands. The patient reports no fever, no night sweats, no significant weight gain, no significant weight loss. No significant exercise tolerance. The patient reports no dry eyes, no irritation, no vision change. Patient reports no difficulty hearing and no ear pain. Patient reports no frequent nose bleeds or nose and sinus problems. Patient reports on arm pain on exertion. No shortness of breath while lying down. No history of heart murmur. Patient reports no cough, no wheezing or coughing up blood. Patient reports no abdominal pain, no vomiting. Normal appetite. No diarrhea and not vomiting blood. No nausea and no constipation. Patient reports no incontinence. No difficulty urinating. No hematuria. No increased frequency. Patient reports no muscle aches. No weakness, no arthralgias, no back pain. No swelling of the extremities. Patient reports no abnormal mole, no jaundice, no rashes. Reports no loss of consciousness. No weakness and no numbness. No seizures, dizziness, or headaches. The patient reports no depression, no sleep disturbance, feeling safe in a relationship and no alcohol abuse. Patient reports on fatigue. Reports no runny nose or sinus pressure. No itching, no hives, and no frequent sneezing. PHYSICAL EXAMINATION: GENERAL: Elderly female, somewhat chronically ill-appearing, minimal distress. VITAL SIGNS: 93/51, pulse 113. HEENT: Normocephalic, atraumatic. CONSULT REPORT [id number] ORLY,ERNIE NECK: No bruits noted. HEART: Regular, II/ systolic ejection murmur. S3 gallop. LUNGS: Fair air excursion. ABDOMEN: Soft, nontender. EXTREMITIES: Pulses are decreased, 1+. No edema. IMPRESSION: ST elevation myocardial infarction, we will plan for angiography intervention based on above. TRANSINT:[id number] Voice Confirmation ID: [id number] DOCUMENT ID: [id number] ALICIA ALVA MD at 1429 CC: [id number] DICTATION DATE: 04/08/19318 PRESS OPERATOR INSTANT PRINT SHOP: 04/08/19 08 ADM IN [place] [address] [place] [address]
--- NOTE | 2019-04-08 15:00 | NUR ---
RE-ASSESSMENT COMPLETED. PT IS STILL HAS SOB AND DYSPNEA ON EXERTION. CONTINUES ON 2L OF O2 VIA NC. HR 100S. BP STABLE. NO FEVER NOTED. DENIES CHEST PAIN. WILL CONTINUE TO MONITOR.
--- NOTE | 2019-04-08 15:04 | MORECARE ---
CASE MANAGEMENT DISCHARGE SUMMARY PATIENT: ERNIE VILLALBA UNIT: [id number] ADM DATE: 04/08/19 AGE: 69 : 50 SEX: F [facility] AUTHOR: LAURIE ALANIS PHYSICIAN: REFERRING PHYSICIAN: ALICIA ALVA MD DATE OF SERVICE: 04/08/19 Discharge Plan Patient Name: ERNIE VILLALBA [facility] [facility] 1950 Planned Disposition: Home Anticipated Discharge Date: Discharge Date: Expected LOS: Initial Reviewer: [email or web address] Initial Review Date: 04/08/2019 Generated: 04/08/19 4:04 pm DCPIA - Discharge Planning Initial Assessment Updated by [email or web address]: Brittaney Augustin on 04/08/19 2:58 pm * Is the patient Alert and Oriented? Yes * How many steps to enter\exit or inside your home? * PCP Rafael Bucio * Pharmacy [facility] * Preadmission Environment Home with Family * ADLs Partial Dependent * Partial ADLs (Assistance needed) Ambulation * Other Equipment walker, w/c, sc, bsc * List name and contact numbers for known caregivers / representatives who currently or will assist patient after discharge: Anum Villalba - daughter - [phone] * Verbal permission to speak to the caregivers and representatives has been obtained from the patient. Yes * Community resources currently utilized Home Health * Please name any agencies selected above. [facility] * Additional services required to return to the preadmission environment? No * Can the patient safely return to the preadmission environment? Yes * Has this patient been hospitalized within the prior 30 days at any hospital? Yes Patient Name: ERNIE VILLALBA Page [id number] at 1504 All edits/amendments must be made on the electronic document DICTATION DATE: 04/08/191503 VICE PRESIDENT RISK MANAGEMENT: JOSÉ LUIS 04/08/19 150 RPT#: [id number] DC DATE: STATUS: ADM IN [facility] [address] [place] [address] END OF REPORT
--- NOTE | 2019-04-08 15:13 | MORECARE ---
CASE MANAGEMENT DISCHARGE SUMMARY PATIENT: ERNIE VILLALBA UNIT: [id number] ADM DATE: 04/08/19 AGE: 69 : 50 SEX: F ROOM/BED: D.05 AUTHOR: ZEKE,DOC PHYSICIAN: REFERRING PHYSICIAN: ALICIA ALVA MD DATE OF SERVICE: 04/08/19 Discharge Plan Patient Name: ERNIE VILLALBA Facility: [facility]:[place] : 1950 Planned Disposition: Home Anticipated Discharge Date: Discharge Date: Expected LOS: Initial Reviewer: [email or web address] Initial Review Date: 04/08/2019 Generated: 04/08/19 4:12 pm Comments DCP- Discharge Planning Updated by [email or web address]: Brittaney Augustin on 04/08/19 2:[address] While CM was speaking to patient she stated that she is suppose to have Valve replacement in [place]. Patient unable to give a date or if it has already been scheduled or not. CM will try to find out what physician is to do surgery and if it is scheduled. Will need to update physician on patients current status. CM will continue to follow and assist as needed with discharge planning / needs. DCP- Discharge Planning Updated by [email or web address]: Brittaney Augustin on 04/08/19 2:[address] Patient Name: ERNIE VILLALBA Admission Status: ER Accout number: [id number] Admission Date: 04-08-2019 : 1950 Admission Diagnosis: Attending: ALICIA ALVA Current LOS: 1 Anticipated DC Date: Planned Disposition: Home Primary Insurance: MEDICARE A & B Discharge Planning Comments: CM met with patient to complete initial dc planning assessment. CM educated patient on the CM role and verbal consent given by patient to complete assessment. Patient lives at home with her daughter where she is partial dependent with her care (needs assist with ambulation) At discharge patient plans to return home and feels this is a safe discharge. CM discussed availability of home health, rehab services, and medical equipment. Patient stated that she needs a Hospital Bed d/t inability get out of bed and needing HOB elevated. Patient states she doesn't have any 02 @ home but seems very winded with conversation. Speaking only in words. Her daughter will be her driver examiner home.Patient denied known discharge needs at this time. CM will continue to follow and will assist as needed with dc plans/needs. Human Resources Operations Manager: Brittaney Augustin DCPIA - Discharge Planning Initial Assessment Updated by [id number]: Brittaney Augustin on 04/08/19 2:58 pm * Is the patient Alert and Oriented? Yes * How many steps to enter\exit or inside your home? * PCP Rafael Bucio * Pharmacy [facility] * Preadmission Environment Home with Family * ADLs Partial Dependent * Partial ADLs (Assistance needed) Ambulation * Other Equipment walker, w/c, sc, bsc * List name and contact numbers for known caregivers / representatives who currently or will assist patient after discharge: Anum Villalba - daughter - [phone] * Verbal permission to speak to the caregivers and representatives has been obtained from the patient. Yes * Community resources currently utilized Home Health * Please name any agencies selected above. [facility] * Additional services required to return to the preadmission environment? No * Can the patient safely return to the preadmission environment? Yes * Has this patient been hospitalized within the prior 30 days at any hospital? Yes Last DP export: 04/08/19 2:04 p Patient Name: ERNIE VILLALBA Page [id number] at 1513 All edits/amendments must be made on the electronic document DICTATION DATE: 04/08/191511 STAPLE LASTER: JOSÉ LUIS 04/08/191511 RPT#: [id number] DC DATE: STATUS: ADM IN [facility] [address] [place] [address] END OF REPORT
--- NOTE | 2019-04-08 16:40 | NUR ---
BLOOD GLUCOSE 165 AT THIS TIME. PT REFUSED INSULIN. SHE'S AFRAID OF GETTING HYPOGLYCEMIC DUE TO POOR APPETITE.
--- NOTE | 2019-04-08 16:48 | NUR ---
BATH OFFERED. PT REFUSED DUE TO SOB ON EXERTION.
--- NOTE | 2019-04-08 17:17 | MORECARE ---
CASE MANAGEMENT DISCHARGE SUMMARY PATIENT: ERNIE VILLALBA UNIT: [id number] ADM DATE: 04/08/19 AGE: 69 : 50 SEX: F RO[facility]ED: [facility] AUTHOR: ZEKE,DOC PHYSICIAN: REFERRING PHYSICIAN: ALICIA ALVA MD DATE OF SERVICE: 04/08/19 Discharge Plan Patient Name: ERNIE VILLALBA Facility: [facility]:[place] : 1950 Planned Disposition: Home Anticipated Discharge Date: Discharge Date: Expected LOS: Initial Reviewer: [email or web address] Initial Review Date: 04/08/2019 Generated: 04/08/19 6:17 pm Comments DCP- Discharge Planning Updated by [id number]: Brittaney Augustin on 04/08/19 4:[address] CM called Dr. Rina East in [place] [phone] to try to find out plan for surgery or not. CM notified his nurse that patient has came in over night with STEMI Dr. East nurse stated she would call back to CVICU once she speaks to Dr. East. At this time patient has an appointment for f/u on May 01 @ 4210. CM will continue to follow and assist as needed with discharge planning / needs. DCP- Discharge Planning Updated by [email or web address]: Brittaney Augustin on 04/08/19 2:[address] While CM was speaking to patient she stated that she is suppose to have Valve replacement in [place]. Patient unable to give a date or if it has already been scheduled or not. CM will try to find out what physician is to do surgery and if it is scheduled. Will need to update physician on patients current status. CM will continue to follow and assist as needed with discharge planning / needs. DCP- Discharge Planning Updated by [email or web address]: Brittaney Augustin on 04/08/19 2:[address] Patient Name: ERNIE VILLALBA Admission Status: ER Accout number: [id number] Admission Date: 04-08-2019 : 1950 Admission Diagnosis: Attending: ALICIA ALVA Current LOS: 1 Anticipated DC Date: Planned Disposition: Home Primary Insurance: MEDICARE A & B Discharge Planning Comments: CM met with patient to complete initial dc planning assessment. CM educated patient on the CM role and verbal consent given by patient to complete assessment. Patient lives at home with her daughter where she is partial dependent with her care (needs assist with ambulation) At discharge patient plans to return home and feels this is a safe discharge. CM discussed availability of home health, rehab services, and medical equipment. Patient stated that she needs a Hospital Bed d/t inability get out of bed and needing HOB elevated. Patient states she doesn't have any 02 @ home but seems very winded with conversation. Speaking only in words. Her daughter will be her winch driver home.Patient denied known discharge needs at this time. CM will continue to follow and will assist as needed with dc plans/needs. Solar Sales Specialist: Brittaney Augustin DCPIA - Discharge Planning Initial Assessment Updated by [email or web address]: Brittaney Augustin on 04/08/19 2:58 pm * Is the patient Alert and Oriented? Yes * How many steps to enter\exit or inside your home? * PCP Rafael Bucio * Pharmacy [facility] * Preadmission Environment Home with Family * ADLs Partial Dependent * Partial ADLs (Assistance needed) Ambulation * Other Equipment walker, w/c, sc, bsc * List name and contact numbers for known caregivers / representatives who currently or will assist patient after discharge: Anum Villalba - daughter - [phone] * Verbal permission to speak to the caregivers and representatives has been obtained from the patient. Yes * Community resources currently utilized Home Health * Please name any agencies selected above. [facility] * Additional services required to return to the preadmission environment? No * Can the patient safely return to the preadmission environment? Yes * Has this patient been hospitalized within the prior 30 days at any hospital? Yes Last DP export: 04/08/19 2:13 p Patient Name: ERNIE VILLALBA Page [phone] at 1717 All edits/amendments must be made on the electronic document DICTATION DATE: 04/08/191716 NAVAL GUNFIRE SPOTTER: JOSÉ LUIS 04/08/191716 RPT#: [id number] DC DATE: STATUS: ADM IN [facility] [address] [place] [address] END OF REPORT
--- NOTE | 2019-04-08 17:37 | NUR ---
PULLED UP IN BED AND REPOSITIONED FOR COMFORT. CLEAN PAD PROVIDED. PERICARE PROVIDED. BARRIER CREAM APPLIED TO BUTTOCKS. PT EMOTIONAL AT THIS TIME. SOB CONTINUES ON EXERTION. PT COMPLAINED OF NAUSEA. 4MG IV ZOFRAN GIVEN PER ORDERS. WILL CONTINUE TO MONITOR.
--- NOTE | 2019-04-08 18:44 | NUR ---
BP 84/47. DR. WRIGHT NOTIFIED. ORDERED TO KEEP DOBUTAMINE AT 5MCG/KG/MIN AND ADD DOPAMINE WITH INITIAL RATE AT 3MCG/KG/MIN, CONSULT DR. LOPEZ FOR MEDICAL MANAGEMENT.
--- NOTE | 2019-04-08 19:13 | NUR ---
DR. LOPEZ NOTIFIED OF CONSULT. ORDERED BIPAP / FIO2 40%.
--- NOTE | 2019-04-08 19:26 | NUR ---
PT C/O RIGHT UPPER CHEST PRESSURE PAIN WITH SOB AND INCREASED RR, PAGED AND UPDATED ON PT, ORDERS RECEIVED, SEE MAR/ORDERS FOR FURTHER, WILL CONTINUE TO MONITOR
--- NOTE | 2019-04-08 23:00 | NUR ---
REASSESSMENT COMPLETE SEE FLOW SHEET, PT DENIES PAIN OR NEEDS, BIPAP @40%FIO2, NO ACUTE CHANGES NOTED, SINUS TACH WITH ST DEPRESSION NOTED ON CM, OTHER VSS, REPOSITIONED FOR COMFORT, WILOL CONTINUE TO MONITOR
[2019-04-09] VITALS (33 sets, daily range): BP systolic 90–156; BP diastolic 36–81
--- NOTE | 2019-04-09 03:00 | NUR ---
REASSESSMENT COMPLETE PER FLOW SHEET, NO ACUTE CHANGES NOTED, PT AAOx4, SINUS TACH ON CM, OTHER VSS, WILL CONT TO MONITOR
[2019-04-09 03:52] LABS: BASOPHILS 0.2 % (0-2); EOSINOPHILS 0.8 % (0-7); HEMATOCRIT 29.4 % (36.0-48.0); HEMOGLOBIN 10.1 g/dL (12-16); IMMATURE GRANULOCYTES 0.2 % (0-5); LYMPHOCYTES 20.6 % (15-50); MCH 30.5 pg (26.0-34.0); MCHC 34.4 g/dL (31.0-37.0); MCV 88.8 fL (80.0-100.0); MEAN PLATELET VOLUME 10.5 fL (7.4-10.4); MONOCYTES 10.9 % (2-11); NEUTROPHILS 67.3 % (40-80); PLATELET COUNT 320 10x3/uL (130-400); RBC 3.31 10x6/uL (4.00-5.40); RDW 14.1 % (11.5-14.5)
[2019-04-09 04:12] LABS: ALBUMIN 2.3 g/dL (3.4-5.0); ANION GAP 10.5 mmol/L (8-16); BILIRUBIN - TOTAL 1.02 mg/dL (0.2-1.3); CALCIUM 8.5 mg/dL (8.5-10.1); CARBON DIOXIDE 26.1 mmol/L (21.0-32.0); CREATININE - SERUM 0.9 mg/dL (0.6-1.3); MAGNESIUM - SERUM 1.5 mg/dL (1.8-2.4); PHOSPHOROUS 3.7 mg/dL (2.5-4.9); POTASSIUM - SERUM 4.6 mmol/L (3.5-5.1); PROTEIN - SERUM 6.7 g/dL (6.4-8.2)
--- NOTE | 2019-04-09 07:15 | NUR ---
AWAKE AND ALERT ON BIPAP, REAJUSTED FOR COMFORT. STATES HER FACE IS HURTING FROM MASK. DENIES ANY OTHER PAIN. IV RIGHT WRIST WITHOUT REDNESS OR SWELLING INFUSING WITH DOBUTAMINE AT 5 MCG/KG/MIN. MONITOR ST WITH DEPRESSED ST.
--- NOTE | 2019-04-09 07:40 | NUR ---
BIPAP REMOVED TO ALLOW PATIENT EAT BREAKFAST. PLACED ON 3 LITERS NC, TOLERATING WELL
--- NOTE | 2019-04-09 07:45 | NUR ---
BREAKFAST SERVED ATE FEW BITES BECAME NAUSEA ZOFRAN GIVEN
--- NOTE | 2019-04-09 08:15 | NUR ---
DR. ALVA HERE ORDERS RECEIVED TO DECREASE DOBUTAMINE TO 2.5 MCG/KG/MIN AND TRY TO WEAK
[2019-04-09 08:22] LABS: % SATURATION 15 % (15-55); IRON 26 ug/dl (35-150); TOTAL IRON BIND CAPACITY 165 ug/dl (260-445); UNSAT IRON BIND CAPACITY 139 ug/dl (150-375)
--- NOTE | 2019-04-09 08:30 | NUR ---
PATIENT COMPLIANTING OF CHEST PAIN, MORPHINE 2 MG IV GIVEN WITH RELIEF OBTAINED. ON BIPAP 40% FOR COMPLIANTS OF SHORTNESS OF BREATH
--- NOTE | 2019-04-09 08:43 | NUR ---
PATIENT COMPLIANTING OF CHEST PAIN AGAIN AND SHORT NESS OF BREATH, DR. FOWLER CALLED. WHILE ON PHONE PATIENT HEART RATE DROPPED TO 59, THEN SHE WENT INTO [place]STO[place], EDUARDO AMZA CALLED. TEA STARTED CPR. DR. DENNISON HERE. DR. BAHENA CAME, DR. LOPEZ HERE.
--- NOTE | 2019-04-09 09:10 | NUR ---
CODE CALLED. DR. ALVA PUT A TEMP PACEMAKER, PACER DENISSE NOTED ON MONITOR, NO PALABLE PULSE. CPR STOPPED. DR. LOPEZ, DR. BAHENA IN ROOM. INTUBED PER DR. BAHENA. IV INFLITRATED, EPI GIVEN PER ETT. ATTEMPTED SEVERAL TIMES FOR PHERIPHERAL IV, UNABLE TO GET ONE. CENTRAL LINE ATTEMPTED, TEMP PACER PLACED.
--- NOTE | 2019-04-09 09:48 | NUR ---
DAUGHTER CALLED NOTIFIED OF PATIENT ARREST AND WE ARE DOING CPR. STATES SHE IS ON HERE WAY
--- NOTE | 2019-04-09 10:49 | NUR ---
BIPAP REMOVED TO ALLOW PATIENT TO EAT BREAKFAST, TOLERATING NC PULSE OX 96% AT 3 LITERS.
--- NOTE | 2019-04-09 12:36 | NUR ---
BODY RELEASED TO [facility]
--- NOTE | 2019-04-10 09:26 | MORECARE ---
CASE MANAGEMENT DISCHARGE SUMMARY PATIENT: ERNIE VILLALBA UNIT: [id number] ADM DATE: 04/08/19 AGE: 69 : [birth year] SEX: F ROOM/BED: [facility] AUTHOR: ZEKE,DOC PHYSICIAN: REFERRING PHYSICIAN: ALICIA ALVA MD DATE OF SERVICE: 04/10/19 Discharge Plan Patient Name: ERNIE VILLALBA Facility: [facility]:[place] : 1950 Planned Disposition: Home Anticipated Discharge Date: Discharge Date: 04/09/2019 Expected LOS: Initial Reviewer: [email or web address] Initial Review Date: 04/08/2019 Generated: 04/10/19 10:26 am DCP- Discharge Planning Updated by [email or web address]: Brittaney Augustin on 04/08/19 4:[address] CM called Dr. Rina East in [place] [phone] to try to find out plan for surgery or not. CM notified his nurse that patient has came in over night with STEMI Dr. East nurse stated she would call back to CVICU once she speaks to Dr. East. At this time patient has an appointment for f/u on May 01 @ 4060. CM will continue to follow and assist as needed with discharge planning / needs. DCP- Discharge Planning Updated by [email or web address]: Brittaney Augustin on 04/08/19 2:[address] While CM was speaking to patient she stated that she is suppose to have Valve replacement in [place]. Patient unable to give a date or if it has already been scheduled or not. CM will try to find out what physician is to do surgery and if it is scheduled. Will need to update physician on patients current status. CM will continue to follow and assist as needed with discharge planning / needs. DCP- Discharge Planning Updated by [email or web address]: Brittaney Augustin on 04/08/19 2:[address] Patient Name: ERNIE VILLALBA Admission Status: ER Accout number: [id number] Admission Date: 04-08-2019 : 1950 Admission Diagnosis: Attending: ALICIA ALVA Current LOS: 1 Anticipated DC Date: Planned Disposition: Home Primary Insurance: MEDICARE A & B Discharge Planning Comments: CM met with patient to complete initial dc planning assessment. CM educated patient on the CM role and verbal consent given by patient to complete assessment. Patient lives at home with her daughter where she is partial dependent with her care (needs assist with ambulation) At discharge patient plans to return home and feels this is a safe discharge. CM discussed availability of home health, rehab services, and medical equipment. Patient stated that she needs a Hospital Bed d/t inability get out of bed and needing HOB elevated. Patient states she doesn't have any 02 @ home but seems very winded with conversation. Speaking only in words. Her daughter will be her motor coach driver home.Patient denied known discharge needs at this time. CM will continue to follow and will assist as needed with dc plans/needs. Superintendent Pier: Brittaney Augustin DCPIA - Discharge Planning Initial Assessment Updated by [email or web address]: Brittaney Augustin on 04/08/19 2:58 pm * Is the patient Alert and Oriented? Yes * How many steps to enter\exit or inside your home? * PCP Rafael Bucio * Pharmacy [facility] * Preadmission Environment Home with Family * ADLs Partial Dependent * Partial ADLs (Assistance needed) Ambulation * Other Equipment walker, w/c, sc, bsc * List name and contact numbers for known caregivers / representatives who currently or will assist patient after discharge: Anum Villalba - daughter - [phone] * Verbal permission to speak to the caregivers and representatives has been obtained from the patient. Yes * Community resources currently utilized Home Health * Please name any agencies selected above. [facility] * Additional services required to return to the preadmission environment? No * Can the patient safely return to the preadmission environment? Yes * Has this patient been hospitalized within the prior 30 days at any hospital? Yes Last DP export: 04/08/19 4:17 p Patient Name: ERNIE VILLALBA Page [id number] at 0926 All edits/amendments must be made on the electronic document DICTATION DATE: 04/10/19925 BUILD ENGINEER: JOSÉ LUIS 04/10/19925 RPT#: [id number] DC DATE:04/09/19 STATUS: DIS IN [place] [id number] [facility] [place] [address] END OF REPORT
--- NOTE | 2019-04-11 08:45 | DS ---
PATIENT:ERNIE VILLALBA :[birth year] MEDICAL RECORD: [id number] DISCHARGE SUMMARY ADMISSION DATE: 04/08/19 DISCHARGE DATE: 04/09/19 Summary HOSPITAL COURSE: A 69-year-old female severe and mild regurgitation, She had NSTEMI approximately 36 hours ago. She had abrupt onset of bradyarrhythmia, apnea, and a code was called. The patient was coded per ACLS protocol including temporary wire, which I placed in the subclavian and intubated via the ER physician. However, despite temporary pacer unable to obtain capture and no spontaneous respiration. The patient passed at 9:09 a.m. 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 TRANSINT:[id number] Voice Confirmation ID: [id number] DOCUMENT ID: [id number] ALICIA ALVA MD at 0845 CC: [id number] DICTATION DATE: 04/09/1948 DIE CAST DIE MAKER: 04/10/19 0208 DIS IN 04/09/19 [facility] [address] [place] [address]
== END 2019-04-09 12:42 | DRG 250 ==
LOC: D.ER 00:42 → D.CVICU 03:45
PROVIDERS: Family Medicine; Internal Medicine Nephrology; ADMIT Internal Medicine Interventional Cardiology; ATTEND Internal Medicine Interventional Cardiology
PROC: B2151ZZ Fluoroscopy of Left Heart using Low Osmolar Contrast (ICD-10-PCS; 2019-04-08)
PROC: 4A023N7 Measurement of Cardiac Sampling and Pressure, Left Heart, Percutaneous Approach (ICD-10-PCS; 2019-04-08)
PROC: 02703ZZ Dilation of Coronary Artery, One Artery, Percutaneous Approach (ICD-10-PCS; principal; 2019-04-08 02:30)
PROC: B2181ZZ Fluoroscopy of Left Internal Mammary Bypass Graft using Low Osmolar Contrast (ICD-10-PCS; 2019-04-08 02:30)
PROC: 0BH17EZ Insertion of Endotracheal Airway into Trachea, Via Natural or Artificial Opening (ICD-10-PCS; 2019-04-09)
DX: I21.4 Non-ST elevation (NSTEMI) myocardial infarction (principal); I50.23 Acute on chronic systolic (congestive) heart failure; J96.20 Acute and chronic respiratory failure, unspecified whether with hypoxia or hypercapnia; I42.9 Cardiomyopathy, unspecified; E11.9 Type 2 diabetes mellitus without complications; J44.9 Chronic obstructive pulmonary disease, unspecified; I10 Essential (primary) hypertension; I48.91 Unspecified atrial fibrillation; I35.0 Nonrheumatic aortic (valve) stenosis; I46.2 Cardiac arrest due to underlying cardiac condition; R57.0 Cardiogenic shock; R00.1 Bradycardia, unspecified; I95.9 Hypotension, unspecified